=== PATIENT | male | born 1955 | race African-American/Black ===

== ENCOUNTER 2020-05-29 08:17 | Emergency (ER) | payer MEDICARE, SELFPAY ==
[2020-05-29 08:20] VITALS: BP 165/73; PULSE 92; RESP 20; TEMP 36.7; O2SAT 99
--- NOTE | 2020-05-29 08:34 | ED.DENTAL ---
HPI - Dental/Oral General Chief complaint: Dental/Oral Stated complaint: abcess in mouth Time Seen by Provider: 05/29/20 08:18 Source: RN notes reviewed History of Present Illness HPI Narrative: Patient presents to emergency department from home for dental pain. Patient states 2 days ago he began to have pain in his right jaw. He states that the pain is aching in nature and worse with chewing and biting down. He states he has tenderness in the right lower jaw and notes no swelling. He states that he has been taking Tylenol for the pain with minimal relief. He states that he does have a history of carious teeth in this region and does not currently have a dentist. Denies any fevers or chills ear pain rhinorrhea sore throat difficulty swallowing or any other symptoms. Related Data Home Medications Medication Instructions Recorded Confirmed lisinopril-hydrochlorothiazide tablet 05/29/20 Allergies Allergy/AdvReac Type Severity Reaction Status Date / Time No Known Allergies Allergy Verified 05/29/20 08:24 Review of Systems Review of Systems: Narrative: Gen.: Denies fevers or chills Eyes: Denies eye pain or visual change ENT: See HPI Respiratory: Denies shortness of breath or cough CV: Denies chest pain GI: Denies abdominal pain nausea, emesis Musculoskeletal: Denies neck pain Neuro: Denies headache Skin: Denies rash Except as documented, all other systems reviewed and negative [facility] Past Medical History Medical History (Updated 05/29/20 @ 08:36 by Shar Ng DO) CVA (cerebral vascular accident) Social History Social History Smoking status: Light tobacco smoker Alcohol intake: current Exam Narrative: Exam Narrative: APPEARANCE: No acute distress, nontoxic, resting in bed HEENT: Normocephalic, atraumatic, TMs clear bilaterally, nares patent, oral mucosa moist, airway patent, tooth #32 is carious and turn palpation and tooth 30 is carious and tender mild erythema of the gum with no fluctuance, airway patent, tonsils normal appearance with no exudate uvula midline no trismus no sublingual or or cysts submandibular tenderness mild tenderness over the right lower jaw in the region of carious teeth with no swelling or overlying erythema Neck: Supple, nontender palpation RESPIRATORY: No respiratory distress MUSCULOSKELETAl: Moves all extremities. NEURO: Awake and alert. Following commands, speech normal, no focal deficits SKIN:: Warm, dry. Normal Color PSYCHIATRIC: Normal affect/mood Course Course Emergency Course: Discussed with patient results of workup and diagnosis. Discussed need for follow-up with primary care, proper use of medication, and reasons to return to the emergency department. Patient understands and agrees to current treatment plan Vital Signs Vital signs: Vital Signs Temperature 98.0 F 05/29/20 08:20 Pulse Rate 92 05/29/20 08:20 Respiratory Rate 20 05/29/20 08:20 Blood Pressure 165/73 H 05/29/20 08:20 Pulse Oximetry 99 05/29/20 08:20 Temperature 98.0 F 05/29/20 08:20 Pulse Rate 92 05/29/20 08:20 Respiratory Rate 20 05/29/20 08:20 Blood Pressure 165/73 H 05/29/20 08:20 Pulse Oximetry 99 05/29/20 08:20 Discharge Plan Discharge Clinical Impression: Dental abscess Patient Disposition: Home, Self-Care Condition: Stable Instructions: Antibiotic Form, Dental Abscess (ED) Additional Instructions: Return for increasing pain fever or any other symptoms of concern Prescriptions: New penicillin V potassium 500 mg tablet 500 mg PO TID Qty: 40 RF: 0 ibuprofen [IBU] 600 mg tablet 600 mg PO Q6H PRN (Reason: pain) Qty: 12 RF: 0 No Action lisinopril-hydrochlorothiazide 20-12.5 mg tablet RF: 0 atorvastatin 20 mg tablet 20 mg PO DAILY Qty: 90 RF: 0 Follow-up/Referrals: [facility] [Outside] - [facility] [Outside]
[2020-05-29] MEDS: IBUPROFEN 600 MG TABLET PO (08:52)
[2020-05-29] MEDS: PENICILLIN V POTASSIUM 250 MG TABLET 500 MG PO (08:52)
== END 2020-05-29 08:56 | disposition home or self-care (01) ==
PROVIDERS: Emergency Provider Emergency Medicine
DX: K04.7 Periapical abscess without sinus (principal); Z86.73 Personal history of transient ischemic attack (TIA), and cerebral infarction without residual deficits; F17.200 Nicotine dependence, unspecified, uncomplicated
CPT/HCPCS: 99283; A9270

== ENCOUNTER 2020-06-09 09:25 | Outpatient (CLI) | payer MEDICARE, SELFPAY ==
[2020-06-09 10:40] LABS: Basophils Percent Auto 0.5 % (0.2-1.2); Eosinophils Absolute Auto 0.3 K/mm3 (0-0.3); Hematocrit 43.8 % (42.0-52.0); Hemoglobin 13.8 g/dL (14.0-18.0); Immature Granulocyte Absolute 0.02 K/mm3 (0.00-0.031); Immature Granulocyte Percent A 0.4 % (0-0.5); Lymphocytes Absolute Auto 1.81 K/mm3 (0.9-3.2); Lymphocytes Percent Auto 32.9 % (18.3-44.2); Mean Corpuscular HGB Conc 31.5 g/dl (32-36); Mean Corpuscular Hemoglobin 27.8 pg (26-34); Mean Corpuscular Volume 88.1 fl (80-100); Mean Platelet Volume 10.2 fl (7.4-10.4); Monocytes Absolute Auto 0.5 K/mm3 (0.1-0.6); Monocytes Percent Auto 8.2 % (2.6-8.5); Neutrophils Absolute Auto 2.9 K/mm3 (1.3-6.7); Platelet Count Result 229 k/mm3 (150-375); Red Blood Count 4.97 M/mm3 (4.6-6.20); Red Cell Distribution Width 12.8 % (11.5-14.5); White Blood Count 5.5 K/mm3 (4.5-10.0)
[2020-06-09 10:52] LABS: Alanine Aminotransferase 44 U/L (4-50); Albumin Level 4.6 g/dL (3.5-5.1); Alkaline Phosphatase 83 U/L (38-126); Anion Gap 6 mmol/L (8-16); Aspartate Amino Transferase 32 U/L (17-59); Bilirubin,Total 0.4 mg/dL (0.2-1.3); Blood Urea Nitrogen 26 mg/dL (9-20); Calcium 9.6 mg/dL (8.4-10.2); Carbon Dioxide 31 mmol/L (22-30); Chloride 104 mmol/L (98-107); Cholesterol 145 mg/dL (0-200); Estimated Glomerular Filt Rate 53; Glucose 108 mg/dL (75-110); HDL Direct 52 mg/dL; Potassium 4.4 mmol/L (3.4-5.0); Sodium 141 mmol/L (137-145); Triglycerides 139 mg/dL (<150)
[2020-06-09 11:13] LABS: LDL Cholesterol Direct 63 mg/dL
[2020-06-09 11:21] LABS: Prostate Specific Antigen 2.1 ng/mL (< OR = 4.0)
== END 2020-06-09 09:26 | disposition home or self-care (01) ==
PROVIDERS: PCP Family Medicine; Visit Provider Family Medicine
DX: E78.5 Hyperlipidemia, unspecified (principal); Z12.5 Encounter for screening for malignant neoplasm of prostate; Z00.00 Encounter for general adult medical examination without abnormal findings; I10 Essential (primary) hypertension
CPT/HCPCS: 36415; 80053; 80061; 84153; 84443; 85025; G0103

== ENCOUNTER 2020-12-10 07:09 | Emergency (ER) | payer MEDICARE, SELFPAY ==
--- NOTE | ~2020-12-10 | XR_ITS ---
EXAMINATION: XR foot RT min 3V DATE: 12/10/2020 07:42 INDICATION: Right foot and swelling. TECHNIQUE: 4 views of right foot were obtained. COMPARISON: None. FINDINGS: Bone alignment is normal. No fracture. There is mild osteoarthritis of first metatarsophala ngeal joint and talonavicular joint. There is an enthesophyte at plantar aspect of calcaneal tuberosi ty. IMPRESSION: 1. Mild polyarticular osteoarthritis. Reviewed, dictated and finalized at location A.
[2020-12-10 07:16] VITALS: BP 153/89; PULSE 69; RESP 18; TEMP 37.1; O2SAT 100
[2020-12-10] MEDS: INDOMETHACIN 25 MG CAPSULE 50 MG PO (07:41)
[2020-12-10 07:42] LABS: Basophils Percent Auto 0.5 % (0.2-1.2); Eosinophils Absolute Auto 0.3 K/mm3 (0-0.3); Eosinophils Percent Auto 5.1 % (0-4.4); Hematocrit 41.9 % (42.0-52.0); Hemoglobin 13.2 g/dL (14.0-18.0); Immature Granulocyte Absolute 0.01 K/mm3 (0.00-0.031); Immature Granulocyte Percent A 0.2 % (0-0.5); Lymphocytes Absolute Auto 1.35 K/mm3 (0.9-3.2); Lymphocytes Percent Auto 23.7 % (18.3-44.2); Mean Corpuscular HGB Conc 31.5 g/dl (32-36); Mean Corpuscular Hemoglobin 28.3 pg (26-34); Mean Corpuscular Volume 89.7 fl (80-100); Mean Platelet Volume 9.9 fl (7.4-10.4); Monocytes Absolute Auto 0.7 K/mm3 (0.1-0.6); Neutrophils Absolute Auto 3.3 K/mm3 (1.3-6.7); Neutrophils Percent Auto 58.5 % (45.5-73.1); Platelet Count Result 196 k/mm3 (150-375); Red Blood Count 4.67 M/mm3 (4.6-6.20); Red Cell Distribution Width 13.3 % (11.5-14.5); White Blood Count 5.7 K/mm3 (4.5-10.0)
--- NOTE | 2020-12-10 07:51 | ED.LOWEXIN ---
HPI - Extremity Injury (Lower) General Chief Complaint: Extremity Injury, Lower Stated Complaint: right foot pain Time Seen by Provider: 12/10/20 07:19 Source: patient, RN notes reviewed and old records reviewed Mode of arrival: ambulatory Limitations: no limitations History of Present Illness HPI Narrative: This is a 65 year old male who presents for evaluation of right foot pain. He developed pain to his right great toe yesterday. He now reports he also has pain in his second toe. He thinks there is mild swelling at his great toe. He denies any trauma or injury. He denied history of gout to nurse but now he thinks he may have had gout in the past. He denies fever or chills. He took Tylenol for his pain. Related Data Allergies Allergy/AdvReac Type Severity Reaction Status Date / Time No Known Allergies Allergy Verified 12/10/20 07:24 Review of Systems Review of Systems: All systems reviewed & are unremarkable except as noted in HPI and below PMFSH Past Medical History Medical History CKD (chronic kidney disease) stage 3, GFR 30-59 ml/min CVA (cerebral vascular accident) Dyslipidemia Erectile dysfunction Essential hypertension Headache, migraine History of CVA with residual deficit Surgical History Surgical History History of shoulder surgery (~2015) left shoulder History of tooth extraction Family History Family History Sibling Seizure disorder Father , age 80 Cerebrovascular accident Grandparent Pulmonary disorder Grandparent History of blood clot in brain Grandparent , age 91 Cerebrovascular accident Social History Social History Smoking packs per day: 0.5 Smoking cigarettes per day: 10.0 Years smoked: 40 Smoking pack-years: 20.00 Smoking status: Never smoker Tobacco type: cigarettes Second hand tobacco smoke exposure: No Smoking end date: 03/14/20 Alcohol intake: former Substance use: never Substance use type: does not use Gender identity (if verbalized by the patient): Male Exam Const: General: no acute distress and alert Orientation/consciousness: patient oriented x3 Chest: Chest palpation & inspection: normal inspection of the chest Resp: Effort & Inspection: normal respiratory effort and no retractions Auscultation: clear to auscultation bilaterally Cardio: Rate: regular rate Rhythm: regular rhythm Heart sounds: no murmurs Skin: General skin exam: normal color Rashes: no rashes Neuro: General: patient oriented x3, moves all extremities and CN's II-XI intact bilaterally Extrem: Other: right great toe TTP, no significant swelling; 2+ PT and DP pulse bilateral feet Psych: Mental Status: mental status grossly normal Affect: normal affect Course Reevaluation(s) Reevaluation #1: I discussed with patient that xray shows osteoarthritis. I believe his pain is due to osteoarthritis or gout arthritis. His pain has improved. I Discussed he will be discharged with indomethacin. Date: 12/10/20 Time: 09:06 Vital Signs Vital signs: Vital Signs Temperature 98.8 F 12/10/20 07:16 Pulse Rate 69 12/10/20 07:16 Respiratory Rate 18 12/10/20 07:16 Blood Pressure 153/89 H 12/10/20 07:16 Pulse Oximetry 100 12/10/20 07:16 Temperature 98.8 F 12/10/20 07:16 Pulse Rate 57 L 12/10/20 09:25 Respiratory Rate 17 12/10/20 09:25 Blood Pressure 162/69 H 12/10/20 09:25 Pulse Oximetry 100 12/10/20 09:25 MDM - Extremity Injury (Lower) Medical Records Attestation: I reviewed the patient's medical records. Lab Data Attestation: I reviewed the patient's lab results. Result diagrams: 12/10/20 07:35 12/10/20 07:35 Labs: Lab Results 12/10/20 12/10/20
[2020-12-10 07:55] LABS: Anion Gap 6 mmol/L (8-16); Blood Urea Nitrogen 17 mg/dL (9-20); Calcium 8.6 mg/dL (8.4-10.2); Carbon Dioxide 25 mmol/L (22-30); Chloride 110 mmol/L (98-107); Estimated CRCL calculation 41 ml/min; Estimated Glomerular Filt Rate 57; Glucose 107 mg/dL (75-110); Potassium 4.3 mmol/L (3.4-5.0); Sodium 141 mmol/L (137-145); Uric Acid 7.9 mg/dL (3.5-8.5)
[2020-12-10 09:25] VITALS: BP 162/69; PULSE 57; RESP 17; O2SAT 100
== END 2020-12-10 09:26 | disposition home or self-care (01) ==
PROVIDERS: Emergency Provider General Practice; PCP Family Medicine
DX: M79.674 Pain in right toe(s) (principal); I12.9 Hypertensive chronic kidney disease with stage 1 through stage 4 chronic kidney disease, or unspecified chronic kidney disease; N18.30 Chronic kidney disease, stage 3 unspecified; E78.5 Hyperlipidemia, unspecified; I69.90 Unspecified sequelae of unspecified cerebrovascular disease; Z87.891 Personal history of nicotine dependence; M19.071 Primary osteoarthritis, right ankle and foot
CPT/HCPCS: 36415; 73630; 80048; 84550; 85025; 99283; A9270

== ENCOUNTER 2021-01-28 11:17 | Outpatient (CLI) | payer MEDICARE, SELFPAY ==
[2021-01-28 11:43] LABS: Alanine Aminotransferase 39 U/L (4-50); Albumin Level 4.4 g/dL (3.5-5.1); Alkaline Phosphatase 76 U/L (38-126); Anion Gap 8 mmol/L (8-16); Aspartate Amino Transferase 44 U/L (17-59); Bilirubin,Total 0.6 mg/dL (0.2-1.3); Blood Urea Nitrogen 36 mg/dL (9-20); Calcium 9.7 mg/dL (8.4-10.2); Carbon Dioxide 26 mmol/L (22-30); Chloride 107 mmol/L (98-107); Estimated Glomerular Filt Rate 49; Glucose 105 mg/dL (75-110); Potassium 4.9 mmol/L (3.4-5.0); Sodium 141 mmol/L (137-145); Uric Acid 9.9 mg/dL (3.5-8.5)
== END 2021-01-28 11:18 | disposition home or self-care (01) ==
LOC: ANHLAB 11:21
PROVIDERS: PCP Family Medicine; Visit Provider Podiatrist Foot & Ankle Surgery
DX: M10.9 Gout, unspecified (principal)
CPT/HCPCS: 36415; 80053; 84550

== ENCOUNTER 2021-05-05 14:59 | Outpatient (CLI) | payer MEDICARE, SELFPAY ==
[2021-05-05 16:10] LABS: Alanine Aminotransferase 27 U/L (4-50); Albumin Level 4.7 g/dL (3.5-5.1); Alkaline Phosphatase 91 U/L (38-126); Anion Gap 8 mmol/L (8-16); Aspartate Amino Transferase 32 U/L (17-59); Bilirubin,Total 0.7 mg/dL (0.2-1.3); Blood Urea Nitrogen 20 mg/dL (9-20); Calcium 9.1 mg/dL (8.4-10.2); Carbon Dioxide 27 mmol/L (22-30); Chloride 108 mmol/L (98-107); Estimated Glomerular Filt Rate 57; Glucose 95 mg/dL (65-110); Potassium 4.5 mmol/L (3.4-5.0); Sodium 143 mmol/L (137-145); Uric Acid 8.6 mg/dL (3.5-8.5)
== END 2021-05-05 15:00 | disposition home or self-care (01) ==
PROVIDERS: PCP Family Medicine; Visit Provider Podiatrist Foot & Ankle Surgery
DX: M10.079 Idiopathic gout, unspecified ankle and foot (principal)
CPT/HCPCS: 36415; 80053; 84550

== ENCOUNTER 2021-05-18 02:22 | Day surgery (SDC) | payer MEDICARE, SELFPAY ==
[2021-05-04 14:52] VITALS: BMI 27.4
[2021-05-18 08:29] VITALS: BP 169/81; PULSE 69; RESP 20; TEMP 36.2; O2SAT 100
[2021-05-18] MEDS: LACTATED RINGERS 1,000 ML 150 ML IV CONT (08:40)
--- NOTE | 2021-05-18 09:09 | WPDANESEPPF ---
Anes - Initial Pre Proc Eval Procedure: Operation Date: 05/18/21 09:30 Proposed Procedures p Screening Colonoscopy - Marcelino Fairbanks MD Date/Time: 05/18/21 09:09 Surgeon: Marcelino Fairbanks MD Pre Op Diagnosis: neoplasm screening Patient Data Age: 66 Gender: M Height: 1.73 m Weight: 80 kg Last Vital Signs Temp 97.1 F L 05/18/21 08:29 Pulse 69 05/18/21 08:29 Resp 20 05/18/21 08:29 BP 169/81 H 05/18/21 08:29 Pulse Ox 100 05/18/21 08:29 Allergies Allergy/AdvReac Type Severity Reaction Status Date / Time No Known Allergies Allergy Verified 05/18/21 08:27 Home Medications Medication Instructions Recorded Confirmed Type aspirin 81 mg tablet,delayed 81 mg PO DAILY 12/24/20 05/04/21 History release tramadol 50 mg tablet 50 mg PO Q8H PRN #30 tablet 12/24/20 05/04/21 Rx atorvastatin 20 mg tablet 20 mg PO QHS #90 tablet 03/11/21 05/04/21 Rx lisinopril 20 1 tablet PO DAILY #90 tablet 03/11/21 05/04/21 Rx mg-hydrochlorothiazide 12.5 mg tablet febuxostat 40 mg tablet 40 mg PO DAILY tablet 04/28/21 05/04/21 History sildenafil (pulm.hypertension) See Rx Instructions PO DAILY PRN 05/04/21 05/04/21 History Patient hx anesthesia problems: none Family hx anesthesia problems: none Results Review: All pre-operative results and documents have been reviewed as part of the pre-operative evaluation. [facility] Past Medical History Medical History Arthritis Chronic right shoulder pain CKD (chronic kidney disease) stage 3, GFR 30-59 ml/min CVA (cerebral vascular accident) Dyslipidemia Erectile dysfunction Essential hypertension Gout Headache, migraine History of CVA with residual deficit Memory loss Right foot pain Right shoulder pain Rotator cuff tendonitis Surgical History Surgical History History of shoulder surgery (~2015) left shoulder History of tooth extraction Family History Family History Sibling Seizure disorder Father , age 80 Cerebrovascular accident Grandparent Pulmonary disorder Grandparent History of blood clot in brain Grandparent , age 91 Cerebrovascular accident Social History Social History Smoking packs per day: 0.5 Smoking cigarettes per day: 10.0 Years smoked: 40 Smoking pack-years: 20.00 Smoking status: Current some day smoker Tobacco type: cigarettes Second hand tobacco smoke exposure: No Smoking end date: 03/14/20 Alcohol intake: current Drinks per week: 2 Alcohol use details: Socially Substance use: never Substance use type: does not use Living arrangements: with family Gender identity (if verbalized by the patient): Male Sexual Orientation (if Verbalized by the Patient): Straight or Heterosexual Spiritual care concerns: No Anes - Eval Final PreProcedure Day of Procedure 05/18/21 09:09 Patient weight: overweight Heart: regular rate and rhythm Lungs: clear to auscultation Airway: Mallampati scale class II Neurological: alert and oriented Last oral intake: >/= 8 hours ASA classification: III Emergent: no Anesthetic plan: proceed Anesthesia type and monitoring: general GIVS and standard monitoring Results Review: All pre-operative results and documents have been reviewed as part of the pre-operative evaluation. Informed Consent: The patient's anesthetic plan and its attendant risks and benefits were discussed with the patient/family/POA. Questions were solicited and answers provided to the satisfaction of the patient/family/POA.
--- NOTE | 2021-05-18 09:31 | PM.HPGS ---
History of Present Illness History of Present Illness Consent: Risks, benefits, and alternatives have been discussed and questions answered. Patient agrees to proceed with procedure. Chief complaint: neoplasm screening Narrative: Buzz Disla is a 66 year old male here for screening colonoscopy, last one about 25 years ago. Review of Systems Constitutional: Constitutional: Denies headache(s) and Denies weakness Eyes: Eyes: Denies blurry vision ENT: Reports Normal hearing present, Denies headache(s) and Denies neck pain Cardiovascular: Cardiovascular: Denies chest pain and Denies dyspnea Respiratory: Respiratory: Denies dyspnea Gastrointestinal: Gastrointestinal: Reports no additional gastrointestinal complaints Genitourinary: Genitourinary: Denies dysuria Musculoskeletal: Musculoskeletal: Denies neck pain Integumentary/Breasts: Skin/Breast: Denies dry skin Neurologic: Reports Normal hearing present, Denies headache(s) and Denies weakness Psychiatric: Psychiatric: Denies anxiety Endocrine: Endocrine: Denies change in body appearance Hematologic/Lymphatic: Hematologic/Lymphatic: Denies easy bleeding Allergic/Immunologic: Allergic/Immunologic: Denies urticaria PMFSH Past Medical History Medical History (Updated 05/18/21 @ 09:31 by Marcelino Fairbanks MD) Arthritis Chronic right shoulder pain CKD (chronic kidney disease) stage 3, GFR 30-59 ml/min Colon cancer screening CVA (cerebral vascular accident) Dyslipidemia Erectile dysfunction Essential hypertension Gout Headache, migraine History of CVA with residual deficit Memory loss Right foot pain Right shoulder pain Rotator cuff tendonitis Surgical History Surgical History History of shoulder surgery (~2016) left shoulder History of tooth extraction Family History Family History Sibling Seizure disorder Father , age 80 Cerebrovascular accident Grandparent Pulmonary disorder Grandparent History of blood clot in brain Grandparent , age 91 Cerebrovascular accident Social History Social History Smoking packs per day: 0.5 Smoking cigarettes per day: 10.0 Years smoked: 40 Smoking pack-years: 20.00 Smoking status: Current some day smoker Tobacco type: cigarettes Second hand tobacco smoke exposure: No Smoking end date: 03/14/20 Alcohol intake: current Drinks per week: 2 Alcohol use details: Socially Substance use: never Substance use type: does not use Living arrangements: with family Gender identity (if verbalized by the patient): Male Sexual Orientation (if Verbalized by the Patient): Straight or Heterosexual Spiritual care concerns: No Meds Home Medications and Allergies Home Medications Medication Instructions Recorded Confirmed Type aspirin 81 mg tablet,delayed 81 mg PO DAILY 12/24/20 05/04/21 History release tramadol 50 mg tablet 50 mg PO Q8H PRN #30 tablet 12/24/20 05/04/21 Rx atorvastatin 20 mg tablet 20 mg PO QHS #90 tablet 03/11/21 05/04/21 Rx lisinopril 20 1 tablet PO DAILY #90 tablet 03/11/21 05/04/21 Rx mg-hydrochlorothiazide 12.5 mg tablet febuxostat 40 mg tablet 40 mg PO DAILY tablet 04/28/21 05/04/21 History sildenafil (pulm.hypertension) See Rx Instructions PO DAILY PRN 05/04/21 05/04/21 History Allergies Allergy/AdvReac Type Severity Reaction Status Date / Time No Known Allergies Allergy Verified 05/18/21 08:27 Vital Signs Vital Signs - 24 hr 05/18/21 08:29 Temperature 97.1 F L Pulse Rate 69 Respiratory Rate 20 Blood Pressure 169/81 H Pulse Oximetry 100 Exam Const: General: comfortable and no acute distress HENMT: General nose exam: Normal nares present Eyes: General: appearance normal, both eyes and all related structures Neck: Nec
[2021-05-18 09:56] VITALS: BP 132/54; PULSE 81; RESP 26; O2SAT 100
[2021-05-18 10:06] VITALS: BP 128/61; PULSE 68; RESP 19; O2SAT 100
[2021-05-18 10:16] VITALS: BP 129/61; PULSE 64; RESP 26; O2SAT 100
== END 2021-05-18 10:43 | disposition home or self-care (01) ==
PROVIDERS: PCP Family Medicine; Visit Provider Internal Medicine Gastroenterology
PROC: 0DJD8ZZ Inspection of Lower Intestinal Tract, Via Natural or Artificial Opening Endoscopic (ICD-10-PCS; CPT 45378; principal; 2021-05-18 09:30)
DX: Z12.11 Encounter for screening for malignant neoplasm of colon (principal); D12.2 Benign neoplasm of ascending colon; D12.4 Benign neoplasm of descending colon; K64.8 Other hemorrhoids; I12.9 Hypertensive chronic kidney disease with stage 1 through stage 4 chronic kidney disease, or unspecified chronic kidney disease; N18.30 Chronic kidney disease, stage 3 unspecified; E78.5 Hyperlipidemia, unspecified; M10.9 Gout, unspecified; M19.90 Unspecified osteoarthritis, unspecified site; Z86.73 Personal history of transient ischemic attack (TIA), and cerebral infarction without residual deficits; Z79.82 Long term (current) use of aspirin; Z87.891 Personal history of nicotine dependence
CPT/HCPCS: 45385; 88305; J7120

== ENCOUNTER 2021-06-15 08:20 | Outpatient (CLI) | payer MEDICARE, SELFPAY | END 2021-06-15 08:21 | disposition home or self-care (01) | LOC: ANHSURGERY 08:24 | PROVIDERS: PCP Family Medicine; Visit Provider Surgery | DX: K40.90 Unilateral inguinal hernia, without obstruction or gangrene, not specified as recurrent (principal); Z01.818 Encounter for other preprocedural examination | CPT/HCPCS: 36415; 86850; 86900; 86901 ==

== ENCOUNTER 2021-06-16 00:31 | Day surgery (SDC) | payer MEDICARE, SELFPAY ==
[2021-06-14 08:51] VITALS: BMI 31.8
--- NOTE | 2021-06-14 09:00 | PC.NURSE ---
Report to the Outpatient Waiting Room, entrance under the green pavilion located off [facility], at time _0600 on date ___06/16/21____. OR Time: . - You and your visitor will be asked a series of questions to screen for COVID 19 for your protection. - A mask is required within the hospital. - Only one visitor is allowed at this time. Patient visitors will be guided where to wait when not with patient. Preoperative COVID Testing Requirements: No COVID Test needed if: (proof is required; if not received patient will have Rapid Test prior to entry) - Patient has received COVID Vaccine at least 14 days prior to procedure date or - Patient has positive COVID test result within last 90 days of surgery date. COVID Test needed if above criteria is not met If not COVID vaccinated a COVID test must be conducted within 72 hours of surgery and patient is asked to isolate self from time of testing until procedure. You will go to the [facility] for your COVID testing. The [facility] Testing site is located at the corner of [address] [facility]. You will only be called if COVID results are positive and your surgeon may reschedule your elective surgery date. Patients may have clear liquids (water, carbonated beverages, clear teas, apple juice) until 3 hours prior to surgery with a maximum of 20 ounces. - No food from midnight until time of surgery - Infants may have breast milk until 4 hours before surgery, formula 6 hours prior to surgery. - Children will be allowed to drink immediately following surgery. If applicable, please bring a bottle or sippy cup to assist with drinking. Juice, water, soda, and popsicles are readily available. For infants on formula, please bring formula the day of surgery. Pacifiers are allowed. Take the following medications with a SIP of water the morning of surgery: NONE Medications to discontinue per physician NONE Date to take last dose Please no make-up, nail tamazight, hairspray, perfume, deodorant, or body powder the day of surgery. No jewelry (including any body piercings) or valuables the day of surgery, leave them at home. Please take a shower or bath the night before, or the morning of, surgery with an antibacterial soap. Wear comfortable, loose fitting clothing. Children are encouraged to wear pajamas. - Jewelry must be removed prior to entering the operating room. Rings and piercings that are not removed may be cut off. - The hospital will not accept responsibility for valuables. - Please leave all valuables, including medications, at home the day of surgery. If you are going home after surgery, a licensed lunch truck driver must drive you home. - NO public transportation without another adult. - We recommend that an adult stay with you for 24 hours following discharge. - We also recommend that you do not drive, make important decision, drink alcoholic beverages, or take any drugs that were not prescribed by your health care provider for at least 24 hours after your discharge time. For Pediatric surgeries, we recommend two adults accompany the child home (only one inside the building at this time). Follow any additional instructions given to you from your surgeon. Telephone instructions given to __PATIENT and asked if any additional questions and then verbalized understanding. Patient advised to call surgeon office or pre surgery nurse liaison [phone] if any additional questions.
[2021-06-16] VITALS (17 sets, daily range): BP systolic 117–150; BP diastolic 58–84; PULSE 60–77; RESP 16–22; TEMP 36.4–37.2; O2SAT 96–100
--- NOTE | 2021-06-16 07:04 | WPDANESEPPF ---
Anes - Initial Pre Proc Eval Procedure: Operation Date: 06/16/21 07:30 Proposed Procedures p Laparoscopic Left Inguinal Hernia Repair With Mesh, DaVinci Assisted - Charles Jorgensen DO Date/Time: 06/16/21 07:04 Surgeon: Charles Jorgensen DO Pre Op Diagnosis: Lt Ing Hernia Patient Data Age: 66 Gender: M Height: 1.6 m Weight: 81.65 kg Allergies Allergy/AdvReac Type Severity Reaction Status Date / Time No Known Allergies Allergy Verified 06/14/21 08:34 Home Medications Medication Instructions Recorded Confirmed Type aspirin 81 mg tablet,delayed 81 mg PO DAILY 12/24/20 06/14/21 History release tramadol 50 mg tablet 50 mg PO Q8H PRN #30 tablet 12/24/20 06/14/21 Rx atorvastatin 20 mg tablet 20 mg PO QHS #90 tablet 03/11/21 06/14/21 Rx lisinopril 20 1 tablet PO DAILY #90 tablet 03/11/21 06/14/21 Rx mg-hydrochlorothiazide 12.5 mg tablet febuxostat 40 mg tablet 40 mg PO DAILY tablet 04/28/21 06/14/21 History sildenafil (pulm.hypertension) See Rx Instructions PO DAILY PRN 05/04/21 06/14/21 History Patient hx anesthesia problems: none Family hx anesthesia problems: none Results Review: All pre-operative results and documents have been reviewed as part of the pre-operative evaluation. [facility] Past Medical History Medical History Arthritis Chronic right shoulder pain CKD (chronic kidney disease) stage 3, GFR 30-59 ml/min Colon cancer screening CVA (cerebral vascular accident) Dyslipidemia Erectile dysfunction Essential hypertension Gout Headache, migraine History of CVA with residual deficit Memory loss Right foot pain Right shoulder pain Rotator cuff tendonitis Surgical History Surgical History History of shoulder surgery (~2016) left shoulder History of tooth extraction Family History Family History Sibling Seizure disorder Father , age 80 Cerebrovascular accident Grandparent Pulmonary disorder Grandparent History of blood clot in brain Grandparent , age 91 Cerebrovascular accident Social History Social History Smoking packs per day: 0.5 Smoking cigarettes per day: 10.0 Years smoked: 40 Smoking pack-years: 20.00 Smoking status: Current every day smoker Tobacco type: cigarettes Second hand tobacco smoke exposure: No Smoking end date: 03/14/20 Alcohol intake: current Drinks per week: 2 Alcohol use details: Socially Substance use: never Substance use type: does not use Living arrangements: with family Gender identity (if verbalized by the patient): Male Sexual Orientation (if Verbalized by the Patient): Straight or Heterosexual Spiritual care concerns: No Anes - Eval Final PreProcedure Day of Procedure 06/16/21 07:04 Patient weight: obese Heart: regular rate and rhythm Lungs: clear to auscultation Airway: Mallampati scale class III Neurological: hemiparesis and other (alert) Last oral intake: >/= 8 hours ASA classification: III Emergent: no Anesthetic plan: proceed Anesthesia type and monitoring: general ETT and standard monitoring Results Review: All pre-operative results and documents have been reviewed as part of the pre-operative evaluation. Informed Consent: The patient's anesthetic plan and its attendant risks and benefits were discussed with the patient/family/POA. Questions were solicited and answers provided to the satisfaction of the patient/family/POA.
[2021-06-16] MEDS: LACTATED RINGERS 1,000 ML 30 ML IV CONT ×3 (07:06→12:45)
[2021-06-16] MEDS: ACETAMINOPHEN 500 MG TABLET 1000 MG PO (07:07)
[2021-06-16] MEDS: KETOROLAC 15 MG/ML VIAL (*BKC) IV PUSH (07:07)
--- NOTE | 2021-06-16 07:13 | WPDHPUPDATE1 ---
History and Physical Update Update Date/Time: 06/16/21 07:13 History and Physical has been reviewed, including an updated exam of the patient. There are NO changes in the patient's condition. Risks, benefits, and alternatives have been discussed and questions answered. Patient agrees to proceed with procedure.
[2021-06-16] MEDS: ceFAZolin 2 GM/D5W 50 ML 2 GM/50 ML BAG IVPB (07:25)
[2021-06-16] MEDS: BUPIVACAINE HCL 0.5% PF 30 ML VIAL INFILTRATE (07:45)
--- NOTE | 2021-06-16 08:56 | SUR.OPER ---
EBL=5
--- NOTE | 2021-06-16 09:01 | W.PM.PROC2 ---
Procedure Note - Detailed Date of Procedure 06/16/21 Pre-op Diagnosis Left inguinal hernia Post-op Diagnosis same (Small indirect left inguinal hernia) Procedure Performed Laparoscopic left inguinal hernia repair with mesh, da Javi assisted Surgeon Charles Jorgensen DO Anesthesia general and local (0.5% bupivacaine with epinephrine) Indications This is a 66-year-old man who presented with left groin pain for the past 2 months. He states that he was having pain in the groin with heavy activity. He denies being able to feel or notice a bulge. On exam he was found to have a small reducible left inguinal hernia. No right inguinal hernia was palpable. Discussions were made with the patient about treatment options and decision was made to proceed with robotic assisted laparoscopic left inguinal hernia repair with mesh. Findings Laparoscopic left inguinal hernia repair was performed. A robotic transabdominal preperitoneal approach was utilized. The patient was found to have a very small indirect left inguinal hernia and there was a small cord lipoma going along the inguinal canal. A preperitoneal pocket was created and the cord lipoma was reduced. A large left Bard 3DMax mid mesh was placed within the preperitoneal pocket overlying the entire left myopectineal orifice. No specimens were obtained for pathology. There was no evidence of a right inguinal hernia on laparoscopic inspection. Description of Procedure Procedure as well as risks, benefits, and alternatives were discussed with the patient. Written consent was obtained and placed in chart prior to procedure. Patient was brought back to surgical suite. He was placed supine on operating table. Time-out was done to confirm patient and procedure. He was then intubated by Anesthesia Department. His abdomen was prepped and draped in sterile fashion using chlorhexidine prep. 0.5% bupivacaine with epinephrine was infiltrated at each location for incision. An 8 mm incision was made in the left lateral abdomen, and a 5 mm Optiview trocar was advanced through the abdominal layers under direct visualization. Once inside the abdominal cavity, carbon dioxide insufflation was used to create a pneumoperitoneum. A camera was inserted and the abdominal cavity was inspected. The patient was placed in slight Trendelenburg position. An 8 millimeter incision was made on the right lateral abdomen and an 8 millimeter trocar was inserted under direct visualization. Another 8 millimeter incision was made just superior to the umbilicus and an 8 millimeter trocar was inserted under direct visualization. The 5 mm port was then removed and this was replaced with another 8 mm robotic port. The robotic arms were brought up to the patient's bedside and secured to the ports. The camera and instruments were inserted. I then moved over to the robotic console and took control of the camera and instruments. After careful inspection of the abdominal cavity, I began scoring the peritoneum along the left lower quadrant using scissors with electrocautery. The preperitoneal plane was entered and this was carefully dissected caudally along the inferior epigastric vessels. Careful dissection with scissors with electrocautery and blunt dissection was used to continue this dissection. I dissected far enough laterally to allow for mesh placement, and also dissected medially to identify the pubic arch and Reji's ligament. The hernia sac was identified and carefully dissected posteriorly. The cord contents were also identified and the peritoneum was carefully dissected far enough posteriorly to allow for mesh placement. Once an adequate pocket was created, I then placed the mesh within the preperitoneal pocket and carefully unfolded it. The mesh was centered on the hernia defect with adequate overlap circumferentially. The inferior edge of the mesh was inspected to ensure that it was far enough away from the peritoneal edge. The mesh appe
[2021-06-16] MEDS: oxyCODONE HCL (*CRX) 5 MG TAB IR PO (10:37)
--- NOTE | 2021-06-16 12:55 | SUR.PHASEII ---
1230: Patient attempted to urinate and was unable to go.
--- NOTE | 2021-06-16 13:43 | SUR.PHASEII ---
RN bladder-scanned patient. It shows 106mL. Patient is not in any discomfort at this time. RN notified Dr. Jorgensen and he said to give it another hour and bladder scan again if patient hasn't urinated yet.
--- NOTE | 2021-06-16 14:54 | SUR.PHASEII ---
1445: Patient was still unable to urinate. RN bladder-scanned patient and it showed 159mL.
--- NOTE | 2021-06-16 15:27 | SUR.PHASEII ---
1456: RN spoke w/ Dr. Jorgensen via telephone. He said if patient wasn't uncomfortable then it was ok for him to go home and report to ED later if unable to urinate on own.
== END 2021-06-16 15:30 | disposition home or self-care (01) ==
PROVIDERS: PCP Family Medicine; Visit Provider Surgery
PROC: 8E0Y4CZ Robotic Assisted Procedure of Lower Extremity, Percutaneous Endoscopic Approach (ICD-10-PCS; CPT 49650; principal; 2021-06-16 07:30)
DX: K40.90 Unilateral inguinal hernia, without obstruction or gangrene, not specified as recurrent (principal); I12.9 Hypertensive chronic kidney disease with stage 1 through stage 4 chronic kidney disease, or unspecified chronic kidney disease; N18.30 Chronic kidney disease, stage 3 unspecified; E78.5 Hyperlipidemia, unspecified; M10.9 Gout, unspecified; Z86.73 Personal history of transient ischemic attack (TIA), and cerebral infarction without residual deficits; Z79.82 Long term (current) use of aspirin; F17.210 Nicotine dependence, cigarettes, uncomplicated; E66.9 Obesity, unspecified; Z68.31 Body mass index [BMI] 31.0-31.9, adult
CPT/HCPCS: 49650; S2900; 36415; 86850; 86900; 86901; A9270; J0690; J1100; J1170; J1885; J2250; J2405; J2704; J7030; J7120

== ENCOUNTER 2021-09-13 15:27 | Outpatient (CLI) | payer MEDICARE, SELFPAY ==
[2021-09-13 16:01] LABS: Basophils Percent Auto 0.6 % (0.2-1.2); Eosinophils Absolute Auto 0.3 K/mm3 (0-0.3); Eosinophils Percent Auto 4.6 % (0-4.4); Hematocrit 46.3 % (42.0-52.0); Hemoglobin 14.7 g/dL (14.0-18.0); Immature Granulocyte Absolute 0.03 K/mm3 (0.00-0.031); Immature Granulocyte Percent A 0.4 % (0-0.5); Lymphocytes Absolute Auto 2.05 K/mm3 (0.9-3.2); Lymphocytes Percent Auto 28.9 % (18.3-44.2); Mean Corpuscular HGB Conc 31.7 g/dl (32-36); Mean Corpuscular Hemoglobin 28.3 pg (26-34); Monocytes Absolute Auto 0.5 K/mm3 (0.1-0.6); Monocytes Percent Auto 6.9 % (2.6-8.5); Neutrophils Absolute Auto 4.2 K/mm3 (1.3-6.7); Neutrophils Percent Auto 58.6 % (45.5-73.1); Platelet Count Result 228 k/mm3 (150-375); Red Cell Distribution Width 13.9 % (11.5-14.5); White Blood Count 7.1 K/mm3 (4.5-10.0)
[2021-09-13 16:18] LABS: Alanine Aminotransferase 31 U/L (4-50); Alkaline Phosphatase 98 U/L (38-126); Anion Gap 6 mmol/L (8-16); Aspartate Amino Transferase 29 U/L (17-59); Bilirubin,Total 0.5 mg/dL (0.2-1.3); Blood Urea Nitrogen 22 mg/dL (9-20); Calcium 9.3 mg/dL (8.4-10.2); Carbon Dioxide 24 mmol/L (22-30); Chloride 110 mmol/L (98-107); Cholesterol 191 mg/dL (0-200); Estimated Glomerular Filt Rate 53; Glucose 107 mg/dL (65-110); HDL Direct 60 mg/dL; Potassium 4.4 mmol/L (3.4-5.0); Sodium 140 mmol/L (137-145); Triglycerides 299 mg/dL (<150); Uric Acid 8.6 mg/dL (3.5-8.5)
[2021-09-13 16:29] LABS: LDL Cholesterol Direct 86 mg/dL
[2021-09-13 16:47] LABS: Prostate Specific Antigen 2.6 ng/mL (< OR = 4.0); Vitamin D 25 Hydroxy 16.9 ng/mL
== END 2021-09-13 15:28 | disposition home or self-care (01) ==
PROVIDERS: PCP Family Medicine; Visit Provider Family Medicine
DX: I10 Essential (primary) hypertension (principal); M10.00 Idiopathic gout, unspecified site; E55.9 Vitamin D deficiency, unspecified; Z12.5 Encounter for screening for malignant neoplasm of prostate; E53.8 Deficiency of other specified B group vitamins; R41.89 Other symptoms and signs involving cognitive functions and awareness; E78.5 Hyperlipidemia, unspecified
CPT/HCPCS: 36415; 80053; 80061; 82306; 82607; 84153; 84443; 84550; 85025; G0103

== ENCOUNTER 2022-01-22 08:47 | Emergency (ER) | payer MEDICARE, SELFPAY ==
[2022-01-22 08:50] VITALS: BP 160/95; PULSE 67; RESP 19; TEMP 36.8; O2SAT 98
--- NOTE | 2022-01-22 09:03 | ED.EXTPRO ---
HPI - Extremity Problem General Chief complaint: Extremity Problem,Nontraumatic Stated complaint: foot pain Time Seen by Provider: 01/22/22 08:56 History of Present Illness HPI Narrative: Patient is a 66-year-old male with a history of gout, hypertension, chronic kidney disease here for evaluation of atraumatic right great toe pain for the past day. Patient states the pain is severe in nature, and sensitive to touch, and is described as a sharp burning pain. He has been walking on the foot but with difficulty. He has a history of gout in his right great toe and states that this pain feels identical. He has been attempting his prescribed colchicine and Tylenol without relief of his pain. Denies fevers, chills, systemic symptoms. No history of diabetes. Related Data Home Medications Medication Instructions Recorded Confirmed aspirin 81 mg tablet,delayed 81 mg PO DAILY 12/24/20 07/15/21 release febuxostat 40 mg tablet (Uloric) 40 mg PO DAILY 04/28/21 07/15/21 Allergies Allergy/AdvReac Type Severity Reaction Status Date / Time No Known Allergies Allergy Verified 01/22/22 08:54 Review of Systems Review of Systems: Gen.: Denies fevers or chills Eyes: Denies eye pain or visual change ENT: Denies congestion Respiratory: Denies shortness of breath or cough CV: Denies chest pain or palpitations GI: Denies abdominal pain nausea, emesis or diarrhea denies burning, urgency, frequency or hematuria Musculoskeletal: Reports right toe pain. denies back pain or muscle pain Neuro: Denies numbness, tingling, weakness or focal weakness Skin: Denies rash Except as documented, all other systems reviewed and negative [facility] Past Medical History Medical History Arthritis Chronic right shoulder pain CKD (chronic kidney disease) stage 3, GFR 30-59 ml/min Cognitive impairment Colon cancer screening Dyslipidemia Erectile dysfunction Essential hypertension Gout Headache, migraine History of CVA with residual deficit Inguinal hernia without obstruction or gangrene Memory loss Right foot pain Rotator cuff tendonitis Surgical History Surgical History History of shoulder surgery (~2015) left shoulder History of tooth extraction Hx of left inguinal hernia repair Laparoscopic left inguinal repair with mesh Mayelin asst. 06-16-21 Family History Family History Sibling Seizure disorder Father , age 80 Cerebrovascular accident Grandparent Pulmonary disorder Grandparent History of blood clot in brain Grandparent , age 91 Cerebrovascular accident Social History Social History Smoking packs per day: 0.5 Smoking cigarettes per day: 10.0 Years smoked: 46 Smoking pack-years: 23.00 Smoking status: Current every day smoker Tobacco type: cigarettes Second hand tobacco smoke exposure: No Smoking end date: 03/14/20 Alcohol intake: current Drinks per week: 2 Alcohol use details: Socially Substance use: never Substance use type: does not use Gender identity (if verbalized by the patient): Male Sexual Orientation (if Verbalized by the Patient): Straight or Heterosexual Spiritual care concerns: No Exam Narrative: Gen: Alert, oriented, no acute distress Eyes: EOMI, no icterus Pulm: Respirations even and unlabored, symmetric thorax expansion, no audible stridor or visible cyanosis CV: 2+ DP and PT pulses bilaterally. Regular rate and rhythm, no murmurs GI: No distension, no voluntary/involuntary guarding Neuro: AOx4, moves all extremities without apparent difficulty or weakness, follows commands MSK: Medial aspect of patient's right MTP is swollen and tender to palpation. There is pain with range of motion of the toe. Skin: No jaundice, no visi
[2022-01-22] MEDS: predniSONE 20 MG TABLET 40 MG PO (09:13)
[2022-01-22] MEDS: HYDROcodone/acetaminophen (*CRX) 5-325 MG TABLET 1 TAB PO (09:25)
[2022-01-22 10:00] VITALS: BP 167/93; PULSE 60; RESP 18; O2SAT 98
== END 2022-01-22 10:01 | disposition home or self-care (01) ==
PROVIDERS: Emergency Provider Emergency Medicine; PCP Family Medicine
DX: M10.9 Gout, unspecified (principal); I12.9 Hypertensive chronic kidney disease with stage 1 through stage 4 chronic kidney disease, or unspecified chronic kidney disease; N18.30 Chronic kidney disease, stage 3 unspecified; E78.5 Hyperlipidemia, unspecified; I69.90 Unspecified sequelae of unspecified cerebrovascular disease; F17.210 Nicotine dependence, cigarettes, uncomplicated; Z79.82 Long term (current) use of aspirin
CPT/HCPCS: 99283; A9270; J7512

== ENCOUNTER 2022-03-16 15:27 | Outpatient (CLI) | payer MEDICARE, SELFPAY ==
[2022-03-16 20:49] LABS: Alanine Aminotransferase 34 U/L (6-50); Albumin Level 4.7 g/dL (3.5-5.1); Alkaline Phosphatase 91 U/L (38-126); Anion Gap 11 mmol/L (8-16); Aspartate Amino Transferase 40 U/L (17-59); Bilirubin,Total 0.6 mg/dL (0.2-1.3); Blood Urea Nitrogen 29 mg/dL (9-20); Calcium 9.3 mg/dL (8.4-10.2); Carbon Dioxide 23 mmol/L (22-30); Chloride 104 mmol/L (98-107); Estimated Glomerular Filt Rate 46; Glucose 103 mg/dL (65-110); Potassium 4.5 mmol/L (3.4-5.0); Sodium 138 mmol/L (137-145); Uric Acid 10.7 mg/dL (3.5-8.5)
[2022-03-16 22:34] LABS: Hemoglobin A1C 5.9 % (<5.7)
== END 2022-03-16 15:28 | disposition home or self-care (01) ==
PROVIDERS: PCP Family Medicine; Visit Provider Family Medicine
DX: M10.00 Idiopathic gout, unspecified site (principal); I10 Essential (primary) hypertension; E55.9 Vitamin D deficiency, unspecified; R73.9 Hyperglycemia, unspecified
CPT/HCPCS: 36415; 80053; 82306; 83036; 84550

== ENCOUNTER 2022-04-05 07:45 | Emergency (ER) | payer MEDICARE, SELFPAY ==
[2022-04-05] VITALS (8 sets, daily range): BP systolic 132–145; BP diastolic 69–77; PULSE 71; RESP 18; TEMP 36.9; O2SAT 100
--- NOTE | 2022-04-05 08:01 | ED.LOWEXIN ---
HPI - Extremity Injury (Lower) General Chief Complaint: Extremity Injury, Lower Stated Complaint: gout, L foot Time Seen by Provider: 04/05/22 07:47 History of Present Illness HPI Narrative: This is a 66-year-old male with past medical history of hypertension and gout, who presented to the emergency department complaining of right great toe pain for the past week. He states this is identical to his previous gouty flares, describes pain as sharp, 10 out of 10, located in the right great toe without radiation. He denies fevers, chills, nausea or vomiting. He states he has been out of his colchicine for the past 11 days. Related Data Home Medications Medication Instructions Recorded Confirmed aspirin 81 mg tablet,delayed 81 mg PO DAILY 12/24/20 07/15/21 release febuxostat 40 mg tablet (Uloric) 40 mg PO DAILY 04/28/21 07/15/21 Allergies Allergy/AdvReac Type Severity Reaction Status Date / Time No Known Allergies Allergy Verified 04/05/22 07:55 Review of Systems Review of Systems: CONSTITUTIONAL: Denies fever, chills, or sweats. EYES: Denies visual changes, redness, or discharge. ENT: Denies rhinorrhea, congestion, sore throat, or otalgia. CARDIOVASCULAR: Denies chest pain, palpitations, or edema. RESPIRATORY: Denies cough or dyspnea. GASTROINTESTINAL: Denies abdominal pain, nausea, vomiting, or diarrhea. GENITOURINARY: Denies dysuria or hematuria. SKIN: Denies rash or itching. MUSCULOSKELETAL: +Right great toe pain, denies back pain, NEUROLOGIC: Denies headache, numbness, dizziness, or weakness. PSYCHIATRIC: Denies anxiety or depression. [facility] Past Medical History Medical History Arthritis Chronic right shoulder pain CKD (chronic kidney disease) stage 3, GFR 30-59 ml/min Cognitive impairment Colon cancer screening Dyslipidemia Erectile dysfunction Essential hypertension Gout Headache, migraine History of CVA with residual deficit Inguinal hernia without obstruction or gangrene Memory loss Right foot pain Rotator cuff tendonitis Vitamin D deficiency Surgical History Surgical History History of shoulder surgery (~2015) left shoulder History of tooth extraction Hx of left inguinal hernia repair Laparoscopic left inguinal repair with mesh Mayelin asst. 06-16- Family History Family History Sibling Seizure disorder Father , age 80 Cerebrovascular accident Grandparent Pulmonary disorder Grandparent History of blood clot in brain Grandparent , age 91 Cerebrovascular accident Social History Social History Years smoked: 46 Smoking status: Current every day smoker Tobacco type: cigarettes Second hand tobacco smoke exposure: No Smoking end date: 03/14/20 Alcohol intake: current Drinks per week: 2 Alcohol use details: Socially Substance use: never Substance use type: does not use Additional living arrangements comments: lives with stepdaughter Gender identity (if verbalized by the patient): Male Sexual Orientation (if Verbalized by the Patient): Straight or Heterosexual Spiritual care concerns: No Exam Narrative: GENERAL: Well-appearing, well-nourished, and in no acute distress. Appears uncomfortable HEAD: Normocephalic, atraumatic. EYES: PERRLA and EOMI. ENT: Nares clear, no rhinorrhea or epistaxis. Mucous membranes moist. Oropharynx without tonsillar hypertrophy exudate or other lesions. NECK: Supple. No adenopathy or masses. No JVD CHEST: Clear to auscultation. No respiratory distress. No wheezes rales or rhonchi HEART: Regular rate and rhythm. No murmur heard. Normal peripheral pulses. ABDOMEN: Soft, nontender, nondistended, normal active bowel sounds. EXTREMITIES: Mild warmth to touch and tender to palpation ov
--- NOTE | 2022-04-05 08:11 | PC.NURSE ---
Spoke with Dr Woods. Verbal orders to give po meds even though known pt does not have a ride home
[2022-04-05] MEDS: oxyCODONE HCL (*CRX) 5 MG TAB IR 2.5 MG PO (08:13)
== END 2022-04-05 09:00 | disposition home or self-care (01) ==
PROVIDERS: Emergency Provider Preventive Medicine Aerospace Medicine; PCP Family Medicine
DX: M10.9 Gout, unspecified (principal); I12.9 Hypertensive chronic kidney disease with stage 1 through stage 4 chronic kidney disease, or unspecified chronic kidney disease; N18.30 Chronic kidney disease, stage 3 unspecified; E78.5 Hyperlipidemia, unspecified; E55.9 Vitamin D deficiency, unspecified; I69.951 Hemiplegia and hemiparesis following unspecified cerebrovascular disease affecting right dominant side; Z79.82 Long term (current) use of aspirin; Z87.891 Personal history of nicotine dependence
CPT/HCPCS: 99283; A9270

== ENCOUNTER 2022-07-15 06:52 | Outpatient (CLI) | payer MEDICARE, SELFPAY ==
[2022-07-15 09:28] LABS: Alanine Aminotransferase 27 U/L (6-50); Albumin Level 4.5 g/dL (3.5-5.1); Alkaline Phosphatase 87 U/L (38-126); Anion Gap 8 mmol/L (8-16); Aspartate Amino Transferase 25 U/L (17-59); Bilirubin,Total 0.7 mg/dL (0.2-1.3); Blood Urea Nitrogen 20 mg/dL (9-20); Calcium 9.2 mg/dL (8.4-10.2); Carbon Dioxide 27 mmol/L (22-30); Chloride 105 mmol/L (98-107); Estimated Glomerular Filt Rate 49; Glucose 112 mg/dL (65-110); Potassium 4.2 mmol/L (3.4-5.0); Sodium 140 mmol/L (137-145); Uric Acid 9.4 mg/dL (3.5-8.5)
== END 2022-07-15 06:53 | disposition home or self-care (01) ==
LOC: ANHLAB 06:55
PROVIDERS: PCP Family Medicine; Visit Provider Podiatrist Foot & Ankle Surgery
DX: M10.079 Idiopathic gout, unspecified ankle and foot (principal)
CPT/HCPCS: 36415; 80053; 84550

== ENCOUNTER 2022-08-17 08:28 | Emergency (ER) | payer MEDICARE, SELFPAY ==
--- NOTE | ~2022-08-17 | CT_ITS ---
EXAMINATION: CT abdomen pelvis w con DATE: 08/17/2022 10:29 INDICATION: Left lower quadrant abdominal pain TECHNIQUE: Computed tomography (CT) of the abdomen and pelvis was performed with 100 CC Omnipaque 350 intravenous contrast. Automated exposure control and iterative reconstruction technique were employe d. Exam dose: 882.28 mGy-cm total exam DLP. COMPARISON: None. FINDINGS: Bilateral gynecomastia. Left lower lobe calcified pulmonary granulomas. The lung bases are clear of infiltrate or consolidati on. Heart size is within normal range. No pericardial or pleural effusion. Small sliding hiatal hernia. The liver, gallbladder, bile ducts, pancreas and pancreatic duct are unremarkable. Multiple splenic c alcified granulomas. Normal splenic size. Normal morphology of the adrenal glands. Bilateral probable renal cysts, measuring up to 1 cm on the right, 7 mm on the left. No ureteral calc ulus or hydroureteronephrosis. Prominent prostate enlargement and associated moderate diffuse thickening of the urinary bladder wall Right fat-containing inguinal hernia. Small fat-containing umbilical hernia. Normal appendix. No bowel obstruction or intraperitoneal free air. Normal caliber of the abdominal aorta. No intraperitoneal or retroperitoneal or pelvic mass lesion or adenopathy or ascites. No suspicious osteolytic or osteoblastic lesions. Mild degenerative changes of the thoracic and lumba r spine. IMPRESSION: Bilateral gynecomastia Small sliding hiatal hernia Bilateral renal cysts Prostate enlargement Right fat-containing inguinal hernia Small fat-containing umbilical hernia Normal appendix Reviewed, dictated and finalized at [facility]. Reviewed, dictated and finalized at [facility]. [employer]
[2022-08-17 08:29] VITALS: BP 170/78; PULSE 66; RESP 16; TEMP 36.6; O2SAT 100
[2022-08-17 08:50] LABS: Basophils Percent Auto 0.6 % (0.2-1.2); Eosinophils Absolute Auto 0.4 K/mm3 (0-0.3); Eosinophils Percent Auto 6.1 % (0-4.4); Hematocrit 45.7 % (42.0-52.0); Hemoglobin 14.3 g/dL (14.0-18.0); Immature Granulocyte Absolute 0.02 K/mm3 (0.00-0.031); Immature Granulocyte Percent A 0.3 % (0-0.5); Lymphocytes Percent Auto 30.4 % (18.3-44.2); Mean Corpuscular HGB Conc 31.3 g/dl (32-36); Mean Corpuscular Volume 89.4 fl (80-100); Mean Platelet Volume 10.2 fl (7.4-10.4); Monocytes Absolute Auto 0.6 K/mm3 (0.1-0.6); Monocytes Percent Auto 9.7 % (2.6-8.5); Neutrophils Absolute Auto 3.3 K/mm3 (1.3-6.7); Neutrophils Percent Auto 52.9 % (45.5-73.1); Platelet Count Result 221 k/mm3 (150-375); Red Blood Count 5.11 M/mm3 (4.6-6.20); White Blood Count 6.3 K/mm3 (4.5-10.0)
[2022-08-17 08:56] LABS: Alanine Aminotransferase 28 U/L (6-50); Albumin Level 4.5 g/dL (3.5-5.1); Alkaline Phosphatase 100 U/L (38-126); Anion Gap 5 mmol/L (8-16); Aspartate Amino Transferase 24 U/L (17-59); Bilirubin,Total 0.6 mg/dL (0.2-1.3); Blood Urea Nitrogen 18 mg/dL (9-20); Calcium 9.1 mg/dL (8.4-10.2); Carbon Dioxide 29 mmol/L (22-30); Chloride 104 mmol/L (98-107); Estimated CRCL calculation 41 ml/min; Estimated Glomerular Filt Rate 57; Glucose 102 mg/dL (65-110); Lipase 34 U/L (23-300); Potassium 4.2 mmol/L (3.4-5.0); Sodium 138 mmol/L (137-145)
[2022-08-17 09:09] LABS: Add Urine Microscopic? NO; Appearance Urine Clear (Clear); Bilirubin Urine Negative (Negative); Blood Urine Negative (Negative); Color Urine Yellow (Yellow); Glucose Urine UA Negative (Negative); Ketones Urine Negative (Negative); Leukocyte Esterase Ur Negative LEU/UL (Negative); Nitrate Urine Negative (Negative); Protein Urine Negative (Negative); Urobilinogen Urine 0.2 mg/dL (<2.0)
[2022-08-17] MEDS: MORPHINE SULFATE (*CRX) 4 MG/ML INJ IV PUSH (09:57)
[2022-08-17 10:00] VITALS: BP 160/70; PULSE 70; RESP 16; O2SAT 99
--- NOTE | 2022-08-17 12:19 | ED.ABDPAIN ---
HPI - Abdominal Pain General Chief Complaint: Abdominal Pain Stated Complaint: stomach Time Seen by Provider: 08/17/22 09:29 History of Present Illness HPI narrative: Patient is a 67-year-old male who presents ER with left lower quadrant abdominal pain. Ongoing over the last 2 days. Worse with palpation and movement. No nausea or vomiting. Denies fevers or chills or sweats. No diarrhea or constipation. No history of diverticulitis. Relieving factors include sitting still. Related Data Home Medications Medication Instructions Recorded Confirmed aspirin 81 mg tablet,delayed 81 mg PO DAILY 12/24/20 07/27/22 release febuxostat 40 mg tablet (Uloric) 40 mg PO DAILY 04/28/21 07/27/22 Allergies Allergy/AdvReac Type Severity Reaction Status Date / Time No Known Allergies Allergy Verified 08/17/22 08:31 Review of Systems Review of Systems: All systems reviewed & are unremarkable except as noted in HPI and below Constitutional: Constitutional: Denies chills, Denies fatigue and Denies fever(s) ENT: Denies nasal congestion and Denies sore throat Cardiovascular: Cardiovascular: Denies chest pain, Denies rapid heart rate and Denies radiating jaw, neck or arm pain Gastrointestinal: Gastrointestinal: Reports abdominal pain, Denies diarrhea, Denies nausea and Denies vomiting Genitourinary: Genitourinary: Denies dysuria and Denies urinary frequency [facility] Past Medical History Medical History Arthritis Chronic right shoulder pain CKD (chronic kidney disease) stage 3, GFR 30-59 ml/min Cognitive impairment Colon cancer screening Dyslipidemia Erectile dysfunction Essential hypertension Gout Headache, migraine History of CVA with residual deficit Inguinal hernia without obstruction or gangrene Memory loss Prediabetes Right foot pain Rotator cuff tendonitis Vitamin D deficiency Surgical History Surgical History History of shoulder surgery (~2016) left shoulder History of tooth extraction Hx of left inguinal hernia repair Laparoscopic left inguinal repair with mesh Mayelin solomon. 06-16-21 Family History Family History Sibling Seizure disorder Father , age 80 Cerebrovascular accident Grandparent Pulmonary disorder Grandparent History of blood clot in brain Grandparent , age 91 Cerebrovascular accident Social History Social History Smoking packs per day: 0.75 Smoking cigarettes per day: 15.0 Years smoked: 45 Smoking pack-years: 33.75 Smoking status: Current every day smoker Tobacco type: cigarettes Second hand tobacco smoke exposure: No Smoking end date: 03/14/20 Alcohol intake: current Drinks per week: 2 Alcohol use details: Socially Substance use: never Substance use type: does not use Additional living arrangements comments: lives with stepdaughter Gender identity (if verbalized by the patient): Male Sexual Orientation (if Verbalized by the Patient): Straight or Heterosexual Spiritual care concerns: No Exam Narrative: GENERAL: Well-appearing, well-nourished, and in no acute distress. HEAD: Normocephalic, atraumatic. EYES: PERRL and EOMI. ENT: Mucous membranes moist. CHEST: Clear to auscultation. No respiratory distress. HEART: Regular rate and rhythm. Normal peripheral pulses. ABDOMEN: Soft, tender palpation left lower quadrant with guarding, nondistended. EXTREMITIES: Normal range of motion. No edema. SKIN: Warm, dry, no rash. NEURO: Alert and oriented x3. PSYCH: Normal mood and affect. Course Course Emergency Course: No evidence of infection or acute injury. May have abdominal wall muscle strain recommend muscle relaxers and [id number] pain medication. Patient verbalized understanding of the lab r
[2022-08-17 12:40] VITALS: BP 160/70; PULSE 70; RESP 16; O2SAT 99
== END 2022-08-17 12:45 | disposition home or self-care (01) ==
PROVIDERS: Emergency Provider Emergency Medicine; PCP Family Medicine
DX: S39.011A Strain of muscle, fascia and tendon of abdomen, initial encounter (principal); I12.9 Hypertensive chronic kidney disease with stage 1 through stage 4 chronic kidney disease, or unspecified chronic kidney disease; N18.30 Chronic kidney disease, stage 3 unspecified; E78.5 Hyperlipidemia, unspecified; I69.951 Hemiplegia and hemiparesis following unspecified cerebrovascular disease affecting right dominant side; R73.03 Prediabetes; E55.9 Vitamin D deficiency, unspecified; M19.90 Unspecified osteoarthritis, unspecified site; Z87.891 Personal history of nicotine dependence; Z79.82 Long term (current) use of aspirin; K44.9 Diaphragmatic hernia without obstruction or gangrene; K40.90 Unilateral inguinal hernia, without obstruction or gangrene, not specified as recurrent; K42.9 Umbilical hernia without obstruction or gangrene; N40.0 Benign prostatic hyperplasia without lower urinary tract symptoms; X58.XXXA Exposure to other specified factors, initial encounter
CPT/HCPCS: 36415; 74177; 80053; 81003; 83690; 85025; 96374; 99284; J2270; Q9967

== ENCOUNTER 2022-10-02 11:56 | Emergency (ER) | payer MEDICARE, SELFPAY ==
--- NOTE | ~2022-10-02 | XR_ITS ---
XR wrist RT min 3V 10/02/2022 12:22 Indication: Right wrist pain Procedure: 4 views right wrist Comparison: No prior studies for comparison. Findings: Osteopenia. There is polyarticular osteoarthritis. No fracture or traumatic malalignment. N o foreign bodies. Impression: 1: No acute fracture. Reviewed, dictated and finalized at [facility]. [employer] Impression: 1: No acute fracture.
[2022-10-02 12:28] VITALS: BP 186/74; PULSE 79; RESP 18; TEMP 36.9; O2SAT 100
[2022-10-02 15:15] LABS: Uric Acid 7.8 mg/dL (3.5-8.5)
[2022-10-02] MEDS: HYDROcodone/acetaminophen (*CRX) 5-325 MG TABLET 1 TAB PO (15:21)
[2022-10-02 15:32] LABS: Basophils Percent Auto 0.3 % (0.2-1.2); Eosinophils Absolute Auto 0.3 K/mm3 (0-0.3); Eosinophils Percent Auto 4.6 % (0-4.4); Hematocrit 46.2 % (42.0-52.0); Hemoglobin 14.7 g/dL (14.0-18.0); Immature Granulocyte Absolute 0.02 K/mm3 (0.00-0.031); Immature Granulocyte Percent A 0.3 % (0-0.5); Lymphocytes Absolute Auto 1.77 K/mm3 (0.9-3.2); Lymphocytes Percent Auto 28.2 % (18.3-44.2); Mean Corpuscular HGB Conc 31.8 g/dl (32-36); Mean Corpuscular Hemoglobin 28.1 pg (26-34); Mean Corpuscular Volume 88.3 fl (80-100); Mean Platelet Volume 10.5 fl (7.4-10.4); Monocytes Absolute Auto 0.5 K/mm3 (0.1-0.6); Monocytes Percent Auto 8.3 % (2.6-8.5); Neutrophils Absolute Auto 3.7 K/mm3 (1.3-6.7); Neutrophils Percent Auto 58.3 % (45.5-73.1); Platelet Count Result 215 k/mm3 (150-375); Red Blood Count 5.23 M/mm3 (4.6-6.20); Red Cell Distribution Width 13.3 % (11.5-14.5); White Blood Count 6.3 K/mm3 (4.5-10.0)
--- NOTE | 2022-10-02 16:03 | ED.UPPEXIN ---
HPI - Extremity Injury (Upper) General Chief Complaint: Extremity Injury, Upper Stated Complaint: right wrist pain/swelling, NKI Time Seen by Provider: 10/02/22 14:06 History of Present Illness HPI narrative: Patient is a 67-year-old male who presents ER with right wrist pain and swelling. Ongoing over the last 24 hours. No known trauma. Has a history of gout. Has limited range of motion due to the pain. Denies fevers or chills or sweats. Most of the pain is over the ulnar aspect of the volar wrist that extends around to the dorsal aspect. No numbness or tingling in the fingers. Related Data Home Medications Medication Instructions Recorded Confirmed aspirin 81 mg tablet,delayed 81 mg PO DAILY 12/24/20 07/27/22 release febuxostat 40 mg tablet (Uloric) 40 mg PO DAILY 04/28/21 07/27/22 Allergies Allergy/AdvReac Type Severity Reaction Status Date / Time No Known Allergies Allergy Verified 08/17/22 08:31 Review of Systems Constitutional: Constitutional: Denies chills, Denies fatigue and Denies fever(s) Musculoskeletal: Musculoskeletal: Denies myalgias, Reports arthralgias, Reports joint swelling and Denies muscle cramps Integumentary/Breasts: Skin/Breast: Denies erythema and Denies rash Neurologic: Denies focal weakness and Denies numbness PMFSH Past Medical History Medical History Arthritis Chronic right shoulder pain CKD (chronic kidney disease) stage 3, GFR 30-59 ml/min Cognitive impairment Colon cancer screening Dyslipidemia Erectile dysfunction Essential hypertension Gout Headache, migraine History of CVA with residual deficit Inguinal hernia without obstruction or gangrene Memory loss Prediabetes Right foot pain Rotator cuff tendonitis Vitamin D deficiency Surgical History Surgical History History of shoulder surgery (~2016) left shoulder History of tooth extraction Hx of left inguinal hernia repair Laparoscopic left inguinal repair with mesh Mayelin solomon. 06-16-21 Family History Family History Sibling Seizure disorder Father , age 80 Cerebrovascular accident Grandparent Pulmonary disorder Grandparent History of blood clot in brain Grandparent , age 91 Cerebrovascular accident Social History Social History Smoking packs per day: 0.75 Smoking cigarettes per day: 15.0 Years smoked: 45 Smoking pack-years: 33.75 Smoking status: Current every day smoker Tobacco type: cigarettes Second hand tobacco smoke exposure: No Smoking end date: 03/14/20 Alcohol intake: current Drinks per week: 2 Alcohol use details: Socially Substance use: never Substance use type: does not use Living arrangements: with family Additional living arrangements comments: lives with stepdaughter Occupation/Education: retired Gender identity (if verbalized by the patient): Male Sexual Orientation (if Verbalized by the Patient): Straight or Heterosexual Spiritual care concerns: No Exam Narrative: GENERAL: Well-appearing, well-nourished, and in no acute distress. HEAD: Normocephalic, atraumatic. CHEST: Clear to auscultation. No respiratory distress. HEART: Regular rate and rhythm. Normal peripheral pulses. EXTREMITIES: Focused exam of the right upper extremity reveals tenderness at the right wrist over the carpal tunnel and over the ulnar aspect. There is no redness or increased warmth when compared to the left side. Patient can slightly flex and extend his wrist but cannot perform full range of motion due to pain. No tenderness to the palm. Normal radial and ulnar pulses. Brisk capillary refill in the hand. Denies any numbness on exam. SKIN: Warm, dry, no rash. NEURO: N Alert and oriented x3. PSYCH: Normal mood and affect
[2022-10-02 16:11] LABS: Erythrocyte Sedimentation Rate 11 mm/hr (0-20)
[2022-10-02 16:26] LABS: Anion Gap 9 mmol/L (8-16); Blood Urea Nitrogen 20 mg/dL (9-20); CRP 0.7 mg/dL (<1.0); Calcium 9.1 mg/dL (8.4-10.2); Carbon Dioxide 25 mmol/L (22-30); Chloride 108 mmol/L (98-107); Estimated CRCL calculation 47 ml/min; Estimated Glomerular Filt Rate > 60; Glucose 104 mg/dL (65-110); Potassium 4.5 mmol/L (3.4-5.0); Sodium 142 mmol/L (137-145)
[2022-10-02 17:17] VITALS: BP 162/79; PULSE 69; RESP 18; O2SAT 100
== END 2022-10-02 17:19 | disposition home or self-care (01) ==
PROVIDERS: Emergency Provider Emergency Medicine; PCP Family Medicine
DX: S63.501A Unspecified sprain of right wrist, initial encounter (principal); I12.9 Hypertensive chronic kidney disease with stage 1 through stage 4 chronic kidney disease, or unspecified chronic kidney disease; N18.30 Chronic kidney disease, stage 3 unspecified; E78.5 Hyperlipidemia, unspecified; I69.90 Unspecified sequelae of unspecified cerebrovascular disease; R73.03 Prediabetes; E55.9 Vitamin D deficiency, unspecified; M19.90 Unspecified osteoarthritis, unspecified site; M10.9 Gout, unspecified; Z87.891 Personal history of nicotine dependence; X58.XXXA Exposure to other specified factors, initial encounter
CPT/HCPCS: 36415; 73110; 80048; 84550; 85025; 85652; 86140; 99283; A9270

== ENCOUNTER 2023-01-03 06:43 | Outpatient (CLI) | payer MEDICARE, SELFPAY ==
[2023-01-03 07:36] LABS: Hematocrit 44.7 % (42.0-52.0); Hemoglobin 13.9 g/dL (14.0-18.0); Mean Corpuscular HGB Conc 31.1 g/dl (32-36); Mean Corpuscular Hemoglobin 27.7 pg (26-34); Mean Platelet Volume 10.6 fl (7.4-10.4); Platelet Count Result 216 k/mm3 (150-375); Red Blood Count 5.02 M/mm3 (4.6-6.20); Red Cell Distribution Width 13.4 % (11.5-14.5)
[2023-01-03 07:46] LABS: Albumin Level 4.4 g/dL (3.5-5.1); Anion Gap 6 mmol/L (8-16); Blood Urea Nitrogen 16 mg/dL (9-20); Calcium 8.8 mg/dL (8.4-10.2); Carbon Dioxide 30 mmol/L (22-30); Chloride 105 mmol/L (98-107); Estimated Glomerular Filt Rate 57; Glucose 100 mg/dL (65-110); Phosphorus 3.6 mg/dL (2.5-4.5); Potassium 4.2 mmol/L (3.4-5.0); Sodium 141 mmol/L (137-145)
[2023-01-03 07:53] LABS: Complement C3 120 mg/dL (88-165)
[2023-01-03 08:28] LABS: Creatinine Urine 158.3 mg/dL; Total Protein Urine Random 12 mg/dL; Ur Ttl Prot Creatinine Ratio 0.08 mg/mg (0-0.20)
[2023-01-03 08:39] LABS: Parathyroid Intact 126.9 pg/mL (7.5-53.5)
[2023-01-03 08:43] LABS: Erythrocyte Sedimentation Rate 15 mm/hr (0-20)
[2023-01-09 16:55] LABS: Complement Total CH50 >60 U/mL (31-60)
[2023-01-11 05:25] LABS: Anti Nuclear Antibody Pattern Nuclear, Speckled
== END 2023-01-03 06:44 | disposition home or self-care (01) ==
PROVIDERS: PCP Family Medicine; Visit Provider Internal Medicine Nephrology
DX: N18.31 Chronic kidney disease, stage 3a (principal)
CPT/HCPCS: 36415; 80069; 82570; 83970; 84156; 85027; 85652; 86038; 86039; 86160; 86162; 86334

== ENCOUNTER 2023-01-24 08:13 | Outpatient (CLI) | payer MEDICARE, SELFPAY ==
[2023-01-24 16:51] LABS: Rheumatoid Factor < 12.0 IU/ML (<12)
[2023-01-27 13:16] LABS: ANA Cascade Screen Positive (Negative); SM Antibody <1.0; SM/RNP Antibody <1.0; SS-A <1.0; SS-B <1.0
[2023-01-28 08:29] LABS: Anti Nuclear Antibody Pattern Nuclear, Speckled
[2023-01-28 09:27] LABS: Anti Glomerular Basement Memb <1.0 AI (<1.0)
[2023-01-31 13:23] LABS: RNP Antibody <1.0; Sm Antibody <1.0; Sm/RNP Antibody <1.0
[2023-01-31 16:52] LABS: Cryoglobulin, QL Negative (Negative)
[2023-02-01 05:24] LABS: Centromere B Antibody <1.0; Jo-1 Antibody <1.0; Ribosomal Antibody <1.0; Sjogren's Antibody (SS-B) <1.0
== END 2023-01-24 08:14 | disposition home or self-care (01) ==
LOC: ANHGOSHLAB 08:13
PROVIDERS: PCP Family Medicine; Visit Provider Internal Medicine Nephrology
DX: R76.0 Raised antibody titer (principal)
CPT/HCPCS: 36415; 82595; 83520; 86038; 86039; 86225; 86235; 86430

== ENCOUNTER 2023-04-22 22:30 | Emergency (ER) | payer MEDICARE, SELFPAY ==
[2023-04-22 22:38] VITALS: BP 168/82; PULSE 78; RESP 20; TEMP 36.6; O2SAT 100
[2023-04-23 00:42] VITALS: BP 163/96; PULSE 63; RESP 16; O2SAT 100
[2023-04-23 01:05] LABS: Basophils Percent Auto 0.4 % (0.2-1.2); Eosinophils Absolute Auto 0.4 K/mm3 (0-0.3); Eosinophils Percent Auto 6.1 % (0-4.4); Hematocrit 42.7 % (42.0-52.0); Hemoglobin 13.6 g/dL (14.0-18.0); Immature Granulocyte Absolute 0.01 K/mm3 (0.00-0.031); Immature Granulocyte Percent A 0.1 % (0-0.5); Lymphocytes Absolute Auto 2.07 K/mm3 (0.9-3.2); Lymphocytes Percent Auto 30.8 % (18.3-44.2); Mean Corpuscular HGB Conc 31.9 g/dl (32-36); Mean Corpuscular Hemoglobin 28.6 pg (26-34); Mean Corpuscular Volume 89.9 fl (80-100); Mean Platelet Volume 11.2 fl (7.4-10.4); Monocytes Absolute Auto 0.7 K/mm3 (0.1-0.6); Monocytes Percent Auto 9.7 % (2.6-8.5); Neutrophils Absolute Auto 3.6 K/mm3 (1.3-6.7); Neutrophils Percent Auto 52.9 % (45.5-73.1); Platelet Count Result 192 k/mm3 (150-375); Red Blood Count 4.75 M/mm3 (4.6-6.20); Red Cell Distribution Width 13.7 % (11.5-14.5); White Blood Count 6.7 K/mm3 (4.5-10.0)
[2023-04-23 01:17] LABS: Alanine Aminotransferase 31 U/L (6-50); Albumin Level 4.3 g/dL (3.5-5.1); Alkaline Phosphatase 105 U/L (38-126); Anion Gap 6 mmol/L (8-16); Aspartate Amino Transferase 38 U/L (17-59); Bilirubin,Total 0.7 mg/dL (0.2-1.3); Blood Urea Nitrogen 19 mg/dL (9-20); Calcium 8.8 mg/dL (8.4-10.2); Carbon Dioxide 28 mmol/L (22-30); Chloride 105 mmol/L (98-107); Estimated CRCL calculation 43 ml/min; Estimated Glomerular Filt Rate > 60; Glucose 99 mg/dL (65-110); Potassium 4.1 mmol/L (3.4-5.0); Sodium 139 mmol/L (137-145)
--- NOTE | 2023-04-23 01:46 | ED.GENADULT ---
HPI - General Adult General Chief complaint: Ear Stated complaint: left facial and ear lobe swelling x 2 days Time Seen by Provider: 04/23/23 00:41 Source: patient Mode of arrival: ambulatory Limitations: no limitations History of Present Illness HPI narrative: This is a 67-year-old male who presents to the ED with chief complaint of left ear and left-sided facial pain ongoing for the past 3 days. Patient states that he took an earring out 3 days ago and ever since then he has had swelling and pain around that left ear. Reports drainage from the area but denies any drainage from inside the ear. Denies fevers, chills, nausea, vomiting. Related Data Home Medications Medication Instructions Recorded Confirmed aspirin 81 mg tablet,delayed 81 mg PO DAILY 12/24/20 01/27/23 release febuxostat 40 mg tablet (Uloric) 40 mg PO DAILY 04/28/21 01/27/23 Allergies Allergy/AdvReac Type Severity Reaction Status Date / Time No Known Allergies Allergy Verified 04/22/23 22:46 Review of Systems Review of Systems: All systems as dictated in [facility] Past Medical History Medical History Arthritis Chronic right shoulder pain CKD (chronic kidney disease) stage 3, GFR 30-59 ml/min Cognitive impairment Colon cancer screening Dyslipidemia Erectile dysfunction Essential hypertension Gout Headache, migraine History of CVA with residual deficit Inguinal hernia without obstruction or gangrene Memory loss Prediabetes Right foot pain Rotator cuff tendonitis Vitamin D deficiency Surgical History Surgical History History of shoulder surgery (~2015) left shoulder History of tooth extraction Hx of left inguinal hernia repair Laparoscopic left inguinal repair with mesh Mayelin asst. 06-16-21 Family History Family History Sibling Seizure disorder Father , age 80 Cerebrovascular accident Grandparent Pulmonary disorder Grandparent History of blood clot in brain Grandparent , age 91 Cerebrovascular accident Social History Social History Smoking packs per day: 0.75 Smoking cigarettes per day: 15.0 Years smoked: 45 Smoking pack-years: 33.75 Smoking status: Current every day smoker Tobacco type: cigarettes Second hand tobacco smoke exposure: No Smoking end date: 03/14/20 Alcohol intake: current Drinks per week: 2 Alcohol use details: Socially Substance use: never Substance use type: does not use Living arrangements: with family Additional living arrangements comments: lives with stepdaughter Occupation/Education: retired Gender identity (if verbalized by the patient): Male Sexual Orientation (if Verbalized by the Patient): Straight or Heterosexual Spiritual care concerns: No Exam Narrative: GENERAL: Well-appearing, well-nourished, and in no acute distress. HEAD: Normocephalic, atraumatic. EYES: PERRLA and EOMI. ENT: TMs intact bilaterally. No abnormal findings of the canals bilaterally. Nares clear, no rhinorrhea or epistaxis. Mucous membranes moist. Oropharynx without tonsillar hypertrophy exudate or other lesions. NECK: Supple. No adenopathy or masses. CHEST: No respiratory distress. Clear to auscultation. No wheezes rales or rhonchi HEART: Regular rate and rhythm. No murmur heard. Normal peripheral pulses. ABDOMEN: Soft, nontender, nondistended, normal active bowel sounds. MSK: Normal range of motion. No edema. SKIN: Small area of swelling, fluctuance and induration to the left side of the face just be high in the ear. The area comes to ahead and there is some purulent drainage. Markedly tender to touch. NEURO: Alert and oriented x3. No focal deficits. PSYCH: Normal mood and affect. Course Vital Signs Vital signs: Vi
[2023-04-23] MEDS: IBUPROFEN 600 MG TABLET PO (01:55)
[2023-04-23] MEDS: AMOXICILLIN/CLAVULANATE K 875-125 MG TAB 1 TABLET PO (01:55)
== END 2023-04-23 02:02 | disposition home or self-care (01) ==
PROVIDERS: Emergency Provider Physician Assistant; PCP Family Medicine
DX: L02.01 Cutaneous abscess of face (principal); I12.9 Hypertensive chronic kidney disease with stage 1 through stage 4 chronic kidney disease, or unspecified chronic kidney disease; N18.30 Chronic kidney disease, stage 3 unspecified; F17.210 Nicotine dependence, cigarettes, uncomplicated
CPT/HCPCS: 10061; 36415; 80053; 85025; 99283; A9270

== ENCOUNTER 2023-08-18 08:37 | Outpatient (CLI) | payer MEDICARE, SELFPAY ==
[2023-08-18 19:32] LABS: Basophils Percent Auto 0.5 % (0.2-1.2); Eosinophils Absolute Auto 0.2 K/mm3 (0-0.3); Eosinophils Percent Auto 3.9 % (0-4.4); Hematocrit 49.8 % (42.0-52.0); Hemoglobin 15.5 g/dL (14.0-18.0); Immature Granulocyte Absolute 0.02 K/mm3 (0.00-0.031); Immature Granulocyte Percent A 0.4 % (0-0.5); Lymphocytes Absolute Auto 1.17 K/mm3 (0.9-3.2); Lymphocytes Percent Auto 20.6 % (18.3-44.2); Mean Corpuscular HGB Conc 31.1 g/dl (32-36); Mean Corpuscular Hemoglobin 27.8 pg (26-34); Mean Corpuscular Volume 89.2 fl (80-100); Mean Platelet Volume 11.1 fl (7.4-10.4); Monocytes Absolute Auto 0.6 K/mm3 (0.1-0.6); Monocytes Percent Auto 11.1 % (2.6-8.5); Neutrophils Absolute Auto 3.6 K/mm3 (1.3-6.7); Neutrophils Percent Auto 63.5 % (45.5-73.1); Platelet Count Result 206 k/mm3 (150-375); Red Blood Count 5.58 M/mm3 (4.6-6.20); Red Cell Distribution Width 13.5 % (11.5-14.5); White Blood Count 5.7 K/mm3 (4.5-10.0)
[2023-08-18 19:42] LABS: Hemoglobin A1C 5.7 % (<5.7)
[2023-08-18 19:51] LABS: Alanine Aminotransferase 36 U/L (6-50); Albumin Level 4.2 g/dL (3.5-5.1); Alkaline Phosphatase 105 U/L (38-126); Anion Gap 9 mmol/L (8-16); Aspartate Amino Transferase 34 U/L (17-59); Bilirubin,Total 0.9 mg/dL (0.2-1.3); Blood Urea Nitrogen 19 mg/dL (9-20); Calcium 9.3 mg/dL (8.4-10.2); Carbon Dioxide 28 mmol/L (22-30); Chloride 103 mmol/L (98-107); Cholesterol 192 mg/dL (0-200); Estimated Glomerular Filt Rate 56; Glucose 90 mg/dL (65-110); HDL Direct 69 mg/dL; Potassium 4.5 mmol/L (3.4-5.0); Sodium 140 mmol/L (137-145); Triglycerides 106 mg/dL (<150); Uric Acid 8.8 mg/dL (3.5-8.5)
[2023-08-18 20:08] LABS: LDL Cholesterol Direct 86 mg/dL
[2023-08-18 20:16] LABS: Vitamin D 25 Hydroxy 19.1 ng/mL
[2023-08-18 20:24] LABS: Prostate Specific Antigen 2.7 ng/mL (< OR = 4.0)
== END 2023-08-18 08:38 | disposition home or self-care (01) ==
PROVIDERS: PCP Family Medicine; Visit Provider Family Medicine
DX: M10.00 Idiopathic gout, unspecified site (principal); E55.9 Vitamin D deficiency, unspecified; R73.03 Prediabetes; E78.5 Hyperlipidemia, unspecified; I10 Essential (primary) hypertension; R41.89 Other symptoms and signs involving cognitive functions and awareness; N18.31 Chronic kidney disease, stage 3a; Z00.00 Encounter for general adult medical examination without abnormal findings; E53.8 Deficiency of other specified B group vitamins; Z12.5 Encounter for screening for malignant neoplasm of prostate
CPT/HCPCS: 36415; 80053; 80061; 82306; 82607; 83036; 84153; 84443; 84550; 85025; G0103

== ENCOUNTER 2023-09-27 13:21 | Outpatient (NON) | payer MEDICARE, SELFPAY ==
[2023-10-03 16:48] LABS: Creat 24 Hr 2.82 g/24 h (0.50-2.15); Pro/Creat Ratio 213 mg/g creat (<100); Pro/Creat Ratio mg/mg 0.213 (<0.100); Protein,total, 24 Hr Ur 600 mg/24 h (<100)
== END 2023-09-27 13:22 | disposition home or self-care (01) ==
PROVIDERS: PCP Family Medicine; Visit Provider Internal Medicine Nephrology
DX: E21.1 Secondary hyperparathyroidism, not elsewhere classified (principal); N18.31 Chronic kidney disease, stage 3a
CPT/HCPCS: 86335

== ENCOUNTER 2024-02-01 08:03 | Outpatient (CLI) | payer MEDICARE, SELFPAY ==
[2024-02-01 14:52] LABS: Basophils Percent Auto 0.8 % (0.2-1.2); Eosinophils Absolute Auto 0.3 K/mm3 (0-0.3); Hematocrit 44.6 % (42.0-52.0); Hemoglobin 13.8 g/dL (14.0-18.0); Immature Granulocyte Absolute 0.01 K/mm3 (0.00-0.031); Immature Granulocyte Percent A 0.2 % (0-0.5); Lymphocytes Percent Auto 34.1 % (18.3-44.2); Mean Corpuscular HGB Conc 30.9 g/dl (32-36); Mean Corpuscular Volume 90.7 fl (80-100); Mean Platelet Volume 10.8 fl (7.4-10.4); Monocytes Absolute Auto 0.4 K/mm3 (0.1-0.6); Monocytes Percent Auto 8.8 % (2.6-8.5); Neutrophils Absolute Auto 2.5 K/mm3 (1.3-6.7); Neutrophils Percent Auto 51.1 % (45.5-73.1); Platelet Count Result 237 k/mm3 (150-375); Red Blood Count 4.92 M/mm3 (4.6-6.20); Red Cell Distribution Width 13.6 % (11.5-14.5)
[2024-02-01 15:42] LABS: Vitamin D 25 Hydroxy 35.4 ng/mL
[2024-02-01 15:58] LABS: Alanine Aminotransferase 23 U/L (6-50); Albumin Level 4.5 g/dL (3.5-5.1); Alkaline Phosphatase 91 U/L (38-126); Anion Gap 8 mmol/L (4-12); Aspartate Amino Transferase 29 U/L (17-59); Bilirubin,Total 0.7 mg/dL (0.2-1.3); Blood Urea Nitrogen 30 mg/dL (9-20); Calcium 9.1 mg/dL (8.4-10.2); Carbon Dioxide 27 mmol/L (22-30); Chloride 106 mmol/L (98-107); Cholesterol 168 mg/dL (0-200); Estimated Glomerular Filt Rate 46; Glucose 96 mg/dL (65-110); HDL Direct 57 mg/dL; Potassium 4.4 mmol/L (3.4-5.0); Sodium 141 mmol/L (137-145); Triglycerides 170 mg/dL (<150); Uric Acid 11.6 mg/dL (3.5-8.5)
[2024-02-01 16:24] LABS: Hemoglobin A1C 5.5 % (<5.7)
[2024-02-01 16:38] LABS: LDL Cholesterol Direct 79 mg/dL
[2024-02-01 16:46] LABS: Prostate Specific Antigen 4.4 ng/mL (< OR = 4.0)
== END 2024-02-01 08:04 | disposition home or self-care (01) ==
LOC: ANHGOSHLAB 08:05
PROVIDERS: PCP Family Medicine; Visit Provider Family Medicine
DX: E53.8 Deficiency of other specified B group vitamins (principal); M10.00 Idiopathic gout, unspecified site; E55.9 Vitamin D deficiency, unspecified; Z12.5 Encounter for screening for malignant neoplasm of prostate; R73.03 Prediabetes; I12.9 Hypertensive chronic kidney disease with stage 1 through stage 4 chronic kidney disease, or unspecified chronic kidney disease; N18.31 Chronic kidney disease, stage 3a; E78.5 Hyperlipidemia, unspecified; R41.89 Other symptoms and signs involving cognitive functions and awareness
CPT/HCPCS: 36415; 80053; 80061; 82306; 82607; 83036; 84153; 84443; 84550; 85025; G0103

== ENCOUNTER 2024-04-16 08:15 | Outpatient (CLI) | payer MEDICARE, SELFPAY ==
[2024-04-16 15:09] LABS: Parathyroid Intact 83.1 pg/mL (14.5-75.2)
[2024-04-16 15:17] LABS: Creatinine Urine 179.5 mg/dL
[2024-04-16 15:26] LABS: Vitamin D 25 Hydroxy 24.2 ng/mL
[2024-04-16 15:33] LABS: Prostate Specific Antigen 3.9 ng/mL (< OR = 4.0)
[2024-04-16 15:42] LABS: Total Protein Urine Random < 5 mg/dL; Ur Ttl Prot Creatinine Ratio < 0.03 mg/mg (0-0.20)
[2024-04-16 16:06] LABS: Hematocrit 46.6 % (42.0-52.0); Hemoglobin 14.3 g/dL (14.0-18.0); Mean Corpuscular HGB Conc 30.7 g/dl (32-36); Mean Corpuscular Hemoglobin 28.2 pg (26-34); Mean Corpuscular Volume 91.9 fl (80-100); Mean Platelet Volume 10.3 fl (7.4-10.4); Platelet Count Result 261 k/mm3 (150-375); Red Blood Count 5.07 M/mm3 (4.6-6.20); Red Cell Distribution Width 13.5 % (11.5-14.5); White Blood Count 5.9 K/mm3 (4.5-10.0)
[2024-04-16 17:13] LABS: Albumin Level 4.6 g/dL (3.5-5.1); Anion Gap 10 mmol/L (4-12); Blood Urea Nitrogen 37 mg/dL (9-20); Carbon Dioxide 25 mmol/L (22-30); Chloride 103 mmol/L (98-107); Estimated Glomerular Filt Rate 43; Glucose 84 mg/dL (65-110); Phosphorus 3.3 mg/dL (2.5-4.5); Potassium 4.9 mmol/L (3.4-5.0); Sodium 138 mmol/L (137-145)
== END 2024-04-16 08:16 | disposition home or self-care (01) ==
LOC: ANHGOSHLAB 08:17
PROVIDERS: Student in an Organized Health Care Education/Training Program; PCP Family Medicine; Visit Provider Internal Medicine Nephrology
DX: N18.31 Chronic kidney disease, stage 3a (principal); E21.1 Secondary hyperparathyroidism, not elsewhere classified; R97.20 Elevated prostate specific antigen [PSA]
CPT/HCPCS: 36415; 80069; 82306; 82570; 83970; 84153; 84156; 85027

== ENCOUNTER 2024-05-06 07:20 | Emergency (ER) | payer MEDICARE, SELFPAY ==
--- NOTE | ~2024-05-06 | XR_ITS ---
Right wrist Technique: PA, oblique, lateral, and ulnar deviation views were obtained. Clinical History: Pain Findings: No acute fracture or dislocation is seen. Osseous alignment is anatomic. Joint spaces are p reserved. Soft tissues are unremarkable. Impression: Unremarkable right wrist radiographs. Reviewed, dictated and finalized at location . Impression: Unremarkable right wrist radiographs.
[2024-05-06 07:25] VITALS: BP 154/90; PULSE 67; RESP 16; TEMP 36.6; O2SAT 97
--- NOTE | 2024-05-06 07:56 | ED.GENADULT ---
HPI - General Adult General Chief complaint: Extremity Injury, Upper Stated complaint: R wrist pain Time Seen by Provider: 05/06/24 07:37 History of Present Illness HPI narrative: This is a 69-year-old male with history of gout presenting with right wrist pain. Patient says the pain started yesterday. He does not know any traumatic events. No redness or swelling to the joint. No systemic signs such as fevers chills nausea vomiting or diarrhea. Related Data Home Medications Medication Instructions Recorded Confirmed aspirin 81 mg tablet,delayed 81 mg PO DAILY 12/24/20 04/30/24 release cholecalciferol (vitamin D3) 125 125 mcg PO DAILY 04/24/24 04/24/24 mcg (5,000 unit) capsule Allergies Allergy/AdvReac Type Severity Reaction Status Date / Time No Known Allergies Allergy Verified 05/06/24 07:21 [facility] Past Medical History Medical History Arthritis Chronic right shoulder pain CKD (chronic kidney disease) stage 3, GFR 30-59 ml/min Cognitive impairment Colon cancer screening Dyslipidemia Erectile dysfunction Essential hypertension Gout Headache, migraine History of CVA with residual deficit Inguinal hernia without obstruction or gangrene Memory loss Prediabetes Right foot pain Rotator cuff tendonitis Vitamin D deficiency Surgical History Surgical History History of shoulder surgery (~2015) left shoulder History of tooth extraction Hx of left inguinal hernia repair Laparoscopic left inguinal repair with mesh Mayelin miliant. 06-16-21 Family History Family History Sibling Seizure disorder Father , age 80 Cerebrovascular accident Grandparent Pulmonary disorder Grandparent History of blood clot in brain Grandparent , age 91 Cerebrovascular accident Social History Social History Smoking packs per day: 0.75 Smoking cigarettes per day: 15.0 Years smoked: 45 Smoking pack-years: 33.75 Smoking status: Former smoker Tobacco type: e-cigarettes/vaping Second hand tobacco smoke exposure: No Smoking end date: 08/14/23 Alcohol intake: current Drinks per week: 2 Alcohol use details: Socially Substance use: never Substance use type: does not use Do You Feel Safe in your Home?: Yes Lack of Transportation: No Lack of Food: Never True Current Housing: Decline to Answer Concerned About Future Housing: Decline to Answer Difficulty Paying Gas/Electric Bills: Decline to Answer Difficulty Paying for Meds: Decline to Answer Currently Unemployed: Decline to Answer Education: Decline to Answer Difficulty w/ Childcare or Family Care: Decline to Answer Living arrangements: with family Additional living arrangements comments: lives with stepdaughter Occupation/Education: retired Gender identity (if verbalized by the patient): Male Sexual Orientation (if Verbalized by the Patient): Straight or Heterosexual Spiritual care concerns: No Agree to blood products: Yes Exam Narrative: APPEARANCE: No apparent distress. Head: atraumatic. EYES: EOMI, NOSE: Atraumatic NECK: Trachea midline RESPIRATORY: No increased rate of breathing CARDIOVASCULAR: RRR, ABDOMINAL: Non-distended MUSCULOSKELETAl: Focal exam of the wrist revealed no significant redness or warmth. There is pain with active and passive range of motion. Patient has limited function of his hand due to previous stroke this pain with movements of the hand. Cap refill is normal. Sensation intact. NEURO: Alert. Moving 4/4 extremities SKIN:: Warm, dry. Normal color PSYCHIATRIC: Normal affect Course Vital Signs Vital signs: Vital Signs Temperature 97.8 F 05/06/24 07:25 Pulse Rate 67 05/06/24 07:25 Respiratory Rate 16 05/06/24 07:25 Blood Press
[2024-05-06] MEDS: predniSONE 20 MG TABLET 40 MG PO (08:06)
[2024-05-06] MEDS: ACETAMINOPHEN 500 MG TABLET 1000 MG PO (08:06)
[2024-05-06] MEDS: KETOROLAC 30 MG/ML VIAL (*BKC) IM (08:07)
[2024-05-06 09:02] VITALS: BP 152/87; PULSE 87; RESP 19; TEMP 36.7; O2SAT 98
== END 2024-05-06 09:03 | disposition home or self-care (01) ==
LOC: ANHED 08:10
PROVIDERS: Emergency Provider Emergency Medicine; PCP Family Medicine
DX: M25.531 Pain in right wrist (principal); I12.9 Hypertensive chronic kidney disease with stage 1 through stage 4 chronic kidney disease, or unspecified chronic kidney disease; N18.30 Chronic kidney disease, stage 3 unspecified; E78.5 Hyperlipidemia, unspecified; M10.9 Gout, unspecified; R73.03 Prediabetes; E55.9 Vitamin D deficiency, unspecified; Z86.73 Personal history of transient ischemic attack (TIA), and cerebral infarction without residual deficits; Z87.891 Personal history of nicotine dependence; Z79.82 Long term (current) use of aspirin
CPT/HCPCS: 73110; 96372; 99283; A9270; J1885; J7512

== ENCOUNTER 2024-07-31 00:29 | Observation (INO) | payer MEDICARE, SELFPAY ==
[2024-07-31] VITALS (11 sets, daily range): BP systolic 113–150; BP diastolic 60–97; PULSE 64–86; RESP 14–20; TEMP 36.4–36.6; O2SAT 96–100; BMI 32.9
--- NOTE | ~2024-07-31 | XR_ITS ---
Clinical Indication: Chest pain PA and lateral views of the chest: Comparison: 10/27/2017 Findings: The lungs are clear, without evidence of focal consolidation or pleural effusion. Cardiome diastinal silhouette is within normal limits. Bones and soft tissues are unremarkable. Impression: Normal chest. Reviewed, dictated and finalized at location . ER SORTER MACHINE Impression: Normal chest.
--- NOTE | 2024-07-31 00:38 | ECG_ITS ---
Test Date: 2024-07-31 00:40:11 Measurements Intervals [place] Rate: 70 P: 27 FL: 143 QRS: -21 QRSD: 104 T: 172 QT: 414 QTc: 449 Interpretive Statements SINUS RHYTHM POSSIBLE LEFT ATRIAL ENLARGEMENT [-0.1mV P WAVE IN V1/V2] BORDERLINE LEFT AXIS DEVIATION [QRS AXIS < -20] LEFT VENTRICULAR HYPERTROPHY AND ST-T CHANGE [VOLTAGE CRITERIA PLUS ST/T ABNORMALITY] No previous ECG available for comparison Electronically Signed On 07-31-2024 14:24:16 TECHNICAL OPERATOR by Brendon Hoyt M.D.
--- NOTE | 2024-07-31 00:42 | ED.CHESTPAIN ---
HPI - Chest Pain General Chief Complaint: Chest Pain Stated Complaint: chest pain Time Seen by Provider: 07/31/24 00:37 Source: patient Mode of arrival: ambulatory Limitations: no limitations History of Present Illness HPI narrative: This is a 69-year-old male with PMH of CKD, CVA, HTN, cigarette smoking who presents to the ED for chief complaint of chest pain over the past 1-2 days. Reports it has been in the central chest but has been intermittently radiating into the left chest/left arm. Patient describes the pain as a pressure/heaviness. Reports that in the 70s he had a ?minor heart attack but has never had coronary stents or CABG. Reports some nausea but no vomiting. Denies lightheadedness, syncope, shortness of breath, cough, fevers, chills, abdominal pain, back pain. Denies numbness or weakness. Patient also reports that he had 2 different CVAs in 2019. Related Data Home Medications ?Medication ?Instructions ?Recorded ?Confirmed ?Last Taken ?Type aspirin 81 mg tablet,delayed 81 mg PO DAILY 12/24/20 04/30/24 06/15/21 09:00 History release cholecalciferol (vitamin D3) 125 125 mcg PO DAILY 04/24/24 04/24/24 Unknown History mcg (5,000 unit) capsule Allergies Allergy/AdvReac Type Severity Reaction Status Date / Time No Known Allergies Allergy Verified 05/06/24 07:21 Review of Systems Review of Systems: All systems as dictated in HPI [facility] Past Medical History Medical History (Updated 07/31/24 @ 03:51 by Cristobal Garcia PA-C) Depression Hidradenitis suppurativa BPH associated with nocturia Prediabetes Vitamin D deficiency Cognitive impairment Inguinal hernia without obstruction or gangrene Gout Rotator cuff tendonitis Arthritis Memory loss Erectile dysfunction Chronic right shoulder pain CKD (chronic kidney disease) stage 3, GFR 30-59 ml/min Due to hypertension with associated secondary hyperparathyroidism Headache, migraine Dyslipidemia Essential hypertension History of CVA with residual deficit Imaging in 2017 demonstrated evidence of old stroke and patient 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 06-16-21 History of shoulder surgery (~2016) left shoulder History of tooth extraction Family History Family History Sibling Seizure disorder Father , age 80 Cerebrovascular accident Grandparent Pulmonary disorder Grandparent History of blood clot in brain Grandparent , age 91 Cerebrovascular accident Social History Social History Smoking packs per day: 0.75 Smoking cigarettes per day: 15.0 Years smoked: 45 Smoking pack-years: 33.75 Smoking status: Former smoker Tobacco type: e-cigarettes/vaping Second hand tobacco smoke exposure: No Smoking end date: 08/14/23 Alcohol intake: current Drinks per week: 2 Alcohol use details: Socially Substance use: never Substance use type: does not use Do You Feel Safe in your Home?: Yes Lack of Transportation: No Lack of Food: Never True Current Housing: Decline to Answer Concerned About Future Housing: Decline to Answer Difficulty Paying Gas/Electric Bills: Decline to Answer Difficulty Paying for Meds: Decline to Answer Currently Unemployed: Decline to Answer Education: Decline to Answer Difficulty w/ Childcare or Family Care: Decline to Answer Living arrangements: with family Additional living arrangements comments: lives with stepdaughter Occupation/Education: retired Gender identity (if verbalized by the patient): Male Sexual Orientation (if Verbalized by the Patient): Straight or Heterosexual Spiritual care concerns: No Agree to blood products: Yes Exam Narrative: GENERAL: Well-appearing, well-nourished, and in no acute distress. HEAD: Normocephalic, atraumatic. EYES: PERRLA and EOMI. ENT: Nares clear, no rhinorrhea or epistaxis. Mucous membranes moist. Oropharynx without tonsillar hypertrophy exudate or other lesions. NECK: Supple. No adenopathy or masses. CHEST: No respiratory distress. Clear to auscultation. No wheezes rales or rhonchi HEART: Regular rate and rhythm. No murmur heard. Normal peripheral pulses. ABDOMEN: Soft, nontender, nondistended, normal active bowel sounds. MSK: Normal range of motion. No edema. SKIN: Warm, dry, no rash. NEURO: Alert and oriented x4. No focal deficits. PSYCH: Normal mood and affect. Course Reevaluation(s) Reevaluation #1: Feeling improved after morphine. He did not have any improvement with nitro x3. He does still report a little pressure/heaviness in the central chest. Date: 07/31/24 Time: 02:43 Reevaluation #2: Pain is now more significantly improved after the GI cocktail was given. Date: 07/31/24 Time: 03:46 Vital Signs Vital signs: Vital Signs Temperature 98 F 07/31/24 00:36 Pulse Rate 73 07/31/24 00:36 Respiratory Rate 20 07/31/24 00:36 Blood Pressure 144/85 H 07/31/24 00:36 Pulse Oximetry 98 07/31/24 00:36 Oxygen Delivery Room Air 07/31/24 00:36 Temperature 98 F 07/31/24 00:36 Pulse Rate 73 07/31/24 00:36 Respiratory Rate 20 07/31/24 00:36 Blood Pressure 144/85 H 07/31/24 00:36 Pulse Oximetry 100 07/31/24 00:51 Oxygen Delivery Room Air 07/31/24 00:51 MDM - Chest Pain MDM Narrative Medical decision making narrative: This is a 69-year-old male who presents to the ED for chief complaint of chest pain x 1-2 days. Vitals are normal. Exam is benign overall. EKG does show evidence of diffuse T-wave inversions, however this does appear present and actually appears worse on previous ECG in 2019. Lab work shows normal CBC. CMP shows elevated creatinine of 1.70 but consistent previous measures. BUN stable at 20. BNP negative. Initial troponin negative. D-dimer negative. Chest x-ray on preliminary read shows no acute findings. Heart score is 6. He had no relief with nitro x3. Moderate relief with morphine. He continued to have moderate relief with the GI cocktail. Unclear if this is more GERD related or due to a potential unstable angina. Spoke with medicine, Dr. Crandall will admit the patient to IMU for chest pain with elevated heart score. Lab Data 07/31/24 00:44 07/31/24 00:44 Labs: Lab Results 07/31/24 07/31/24 Range/Units 00:44 00:44 WBC 6.4 (4.5-10.0) K/mm3 RBC 4.71 (4.6-6.20) M/mm3 Hgb 13.3 L (14.0-18.0) g/dL Hct 42.0 (42.0-52.0) % MCV 89.2 (80-100) fl MCH 28.2 (26-34) pg MCHC 31.7 L (32-36) g/dl RDW 12.9 (11.5-14.5) % Plt Count 238 (150-375) k/mm3 MPV 9.6 (7.4-10.4) fl Immature Gran % (Auto) 0.3 (0-0.5) % Neut % (Auto) 55.1 (45.5-73.1) % Lymph % (Auto) 32.8 (18.3-44.2) % [place] % (Auto) 7.6 (2.6-8.5) % Eos % (Auto) 3.6 (0-4.4) % Baso % (Auto) 0.6 (0.2-1.2) % Lymph # (Auto) 2.11 (0.9-3.2) K/mm3 [place] # (Auto) 0.5 (0.1-0.6) K/mm3 Eos # (Auto) 0.2 (0-0.3) K/mm3 Baso # (Auto) 0.0 (0.0-0.1) K/mm3 Abs Immat Gran (auto) 0.02 (0.00-0.031) K/mm3 Absolute Neuts (auto) 3.6 (1.3-6.7) K/mm3 Absolute Nucleated RBC 0.000 (0.0-0.012) K/mm3 Nucleated RBC % 0.0 (0.0-0.2) % PT 13.9 (11.1-14.7) Seconds INR 1.0 APTT 26.0 (22.3-36.8) Seconds D-Dimer < 0.27 Cancelled (<0.48) ug/mL Sodium 140 (137-145) mmol/L Potassium 4.1 (3.4-5.0) mmol/L Chloride 109 H (98-107) mmol/L Carbon Dioxide 25 (22-30) mmol/L Anion Gap 6 (4-12) mmol/L BUN 20 D (9-20) mg/dL Creatinine 1.70 H (0.7-1.3) mg/dL Estim Creat Clear Calc 35 ml/min Estimated GFR 49 L (59 - ) Glucose 131 H (65-110) mg/dL Calcium 9.0 (8.4-10.2) mg/dL Total Bilirubin 0.4 (0.2-1.3) mg/dL AST 27 (17-59) U/L ALT 29 (6-50) U/L Alkaline Phosphatase 93 (38-126) U/L Troponin I < 0.012 (0.000-0.034) ng/mL NT-Pro-B Natriuret Pep 79 (19.9-100) pg/mL Total Protein 8.0 (6.3-8.2) g/dL Albumin 4.1 (3.5-5.1) g/dL Lipase 72 (23-300) U/L ECG Data EKG #1: ECG completion date: 07/31/24 ECG completion time: 00:40 Prior ECG tracings: available for review Interpretation: Sinus rhythm Rate 70 Normal QRS Diffuse T-wave inversions. These appear relatively unchanged from previous ECG in 2020. Minimal ST depression today in lateral leads, there is noticeably more ST depression in ECG 2020 No STEMI Discharge Plan Discharge Clinical Impression: Chest pain Patient Disposition: Still a Patient Condition: Stable Patient Language: Kiswahili Prescriptions: No Action lisinopril 40 mg tablet 40 mg PO DAILY Qty: 90 3RF escitalopram oxalate [Lexapro] 10 mg tablet 10 mg PO DAILY Qty: 30 0RF donepezil [Aricept] 5 mg tablet 5 mg PO QHS Qty: 30 6RF aspirin 81 mg tablet,delayed release (DR/EC) 81 mg PO DAILY amlodipine 10 mg tablet 10 mg PO DAILY Qty: 90 1RF cholecalciferol (vitamin D3) 125 mcg (5,000 unit) capsule 125 mcg PO DAILY ibuprofen 800 mg tablet 800 mg PO TID PRN (Reason: pain) 7 Days Qty: 21 0RF acetaminophen 500 mg tablet 1,000 mg PO TID PRN (Reason: deidra) 7 Days Qty: 42 0RF prednisone 20 mg tablet 20 mg PO DAILY Qty: 15 0RF Rx Instructions: Take 2 pills (40mg) for 5 days, then 1 pill (20mg) for 5 days. tadalafil [Cialis] 20 mg tablet 20 mg PO DAILY PRN (Reason: sexual activity) Qty: 30 0RF Rx Instructions: administer approximately 30min before sexual activity; do not use more than 1 dose per 24hrs atorvastatin 40 mg tablet 40 mg PO DAILY Qty: 90 2RF Follow-up/Referrals: Christine Anguiano MD [Primary Care Provider] - Quality HEART score for chest pain patients History: moderately suspicious ECG: non specific repolarization disturbance/LBTB/PM Age: > or = to 65 years Risk factors: > or = to 3 risk factors of atherosclerotic disease Troponin: < or = to 1x normal limit Heart score: 6
[2024-07-31 00:53] LABS: Basophils Percent Auto 0.6 % (0.2-1.2); Eosinophils Absolute Auto 0.2 K/mm3 (0-0.3); Eosinophils Percent Auto 3.6 % (0-4.4); Hemoglobin 13.3 g/dL (14.0-18.0); Immature Granulocyte Absolute 0.02 K/mm3 (0.00-0.031); Immature Granulocyte Percent A 0.3 % (0-0.5); Lymphocytes Absolute Auto 2.11 K/mm3 (0.9-3.2); Lymphocytes Percent Auto 32.8 % (18.3-44.2); Mean Corpuscular HGB Conc 31.7 g/dl (32-36); Mean Corpuscular Hemoglobin 28.2 pg (26-34); Mean Corpuscular Volume 89.2 fl (80-100); Mean Platelet Volume 9.6 fl (7.4-10.4); Monocytes Absolute Auto 0.5 K/mm3 (0.1-0.6); Monocytes Percent Auto 7.6 % (2.6-8.5); Neutrophils Absolute Auto 3.6 K/mm3 (1.3-6.7); Neutrophils Percent Auto 55.1 % (45.5-73.1); Platelet Count Result 238 k/mm3 (150-375); Red Blood Count 4.71 M/mm3 (4.6-6.20); Red Cell Distribution Width 12.9 % (11.5-14.5); White Blood Count 6.4 K/mm3 (4.5-10.0)
[2024-07-31] MEDS: ASPIRIN 81 MG CHEWABLE TABLET 324 MG PO (01:00)
[2024-07-31 01:08] LABS: Alanine Aminotransferase 29 U/L (6-50); Albumin Level 4.1 g/dL (3.5-5.1); Alkaline Phosphatase 93 U/L (38-126); Anion Gap 6 mmol/L (4-12); Aspartate Amino Transferase 27 U/L (17-59); Bilirubin,Total 0.4 mg/dL (0.2-1.3); Blood Urea Nitrogen 20 mg/dL (9-20); Carbon Dioxide 25 mmol/L (22-30); Chloride 109 mmol/L (98-107); Estimated CRCL calculation 35 ml/min; Estimated Glomerular Filt Rate 49; Glucose 131 mg/dL (65-110); Lipase 72 U/L (23-300); Potassium 4.1 mmol/L (3.4-5.0); Sodium 140 mmol/L (137-145)
[2024-07-31 01:11] LABS: NT Pro B Type Natriuretic Pept 79 pg/mL (19.9-100); Prothrombin Time 13.9 Seconds (11.1-14.7)
[2024-07-31 01:15] LABS: D Dimer < 0.27 ug/mL (<0.48)
--- NOTE | 2024-07-31 01:23 | PC.NURSE ---
010 1st nitroglycerin tablet given, cp still 05/23 010, 2nd nitroglycerin tablet given, cp still 05/23 011, 3rd nitroglycerin tablet given, cp still 05/23
[2024-07-31] MEDS: MORPHINE SULFATE (*CRX) 4 MG/ML INJ IV PUSH (01:54)
[2024-07-31 02:25] LABS: Troponin I < 0.012 ng/mL (0.000-0.034)
--- NOTE | 2024-07-31 03:33 | ECG_ITS ---
Test Date: 2024-07-31 03:36:44 Measurements Intervals [place] Rate: 67 P: 32 [place]: 141 QRS: -11 QRSD: 89 T: 182 QT: 441 QTc: 467 Interpretive Statements SINUS RHYTHM LEFT VENTRICULAR HYPERTROPHY AND ST-T CHANGE [VOLTAGE CRITERIA PLUS ST/T ABNORMALITY] Compared to ECG 07/31/2024 00:40:11 No significant changes Electronically Signed On 07-31-2024 14:24:36 MATERNITY NURSE by Brendon Hoyt M.D.
--- NOTE | 2024-07-31 03:33 | PM.IMHP ---
H&P: HPI History of Present Illness Date/Time: 07/31/24 03:33 Chief Complaint: Chest pain Narrative: 69-year-old male with past medical history of obesity, multiple CVAs, hypertensive nephropathy resulting in chronic kidney disease stage 3, prediabetes, dyslipidemia, continued tobacco use and cognitive impairment in difficulties with communication due to prior stroke who presents to the ER with chest pain just left to the sternum 10/10 in intensity. Patient received nitro with no significant improvement in symptoms. He received a dose of morphine with some mild improvement down to an 8/10 in intensity. He had the most improvement after receiving a GI cocktail with pain down to a 4-5/10 in intensity. Patient's initial troponin was negative in repeat troponin is pending. Initial EKG did not demonstrate any acute ischemic changes. Patient did have a exercise stress test in 2018 that was negative for evidence of ischemia. The patient reports that he was told the 1970s or 1980s that he may have had a minor MA. He has never had a cardiac catheterization. On review of prior abdominal imaging patient does have evidence of a small sliding hiatal hernia and BPH. He does report that he recently had exposure to cold air when he went up to [place] for a . At that time he began having increased coughing. With the coughing he did seem to have some more left-sided chest pain. The pain seemed to be worse with position changes. Initially the pain was worse with deep breathing. The pain was aching in nature and seemed to move around the localized area of his left chest up to his left shoulder. The pain did not radiate down into his arm. He did not have any associated nausea, diaphoresis or palpitations. He reports other when the pain 1st started on the he took some bhda-mci-cuwvkfc stomach meds and 2 full-dose aspirins. He is unsure if the fpsv-kga-jabvuen medications Prilosec or Pepcid but and did seem to have improvement in the symptoms within 20-30 minute and they resolved. He had recurrence of symptoms last evening after he had drink some gin. And this time the symptoms seem to be worse with movement and position changes. He reports that initially the pain was reproducible to palpation of his left lower sternal border. He reports that his pain is still present but is a 3/10 in intensity. The patient feels that his chest pain is due to his coughing. Patient was evaluated by Neurology in February of 2024 as outpatient visit due to memory loss. He was difficult to determine if patient had underlying mild cognitive impairment versus some component of possible mild depression. Patient was started on Aricept and Lexapro at that time. Patient is alert and oriented times for the time my evaluation. Review of Systems Review of Systems: 12 systems were reviewed with pertinent positives and negatives per HPI. Except as documented in the HPI, all other systems were reviewed and are negative. [facility] Past Medical History Medical History Depression Hidradenitis suppurativa BPH associated with nocturia Prediabetes Vitamin D deficiency Cognitive impairment Inguinal hernia without obstruction or gangrene Gout Rotator cuff tendonitis Arthritis Memory loss Erectile dysfunction Chronic right shoulder pain CKD (chronic kidney disease) stage 3, GFR 30-59 ml/min Due to hypertension with associated secondary hyperparathyroidism Headache, migraine Dyslipidemia Essential hypertension History of CVA with residual deficit Imaging in 2017 demonstrated evidence of old stroke and patient had acute left posterior frontal mora radiata infarct 10/2017 Surgical History Surgical History Hx of left inguinal hernia repair Laparoscopic left inguinal repair with mesh Mayelin miliant. 06-16-21 History of shoulder surgery (~2015) left shoulder History of tooth extraction Family History Family History Sibling Seizure disorder Father , age 80 Cerebrovascular accident Grandparent Pulmonary disorder Grandparent History of blood clot in brain Grandparent , age 91 Cerebrovascular accident Social History Social History (Updated 07/31/24 @ 06:03 by Yani Crandall DO) Social History: Patient lives with his of 22 years. He has 3 biologic children. He started smoking at the age of 21. He smoked between 0.5-1 pack of cigarettes per day on and off since then. He had quit smoking all together for over a year but started smoking a couple of cigarettes a day recently. He drinks 2 shots of hard liquor a day on average. He denies illicit substance use. Code status: Full code Surrogate decision maker: Smoking packs per day: 1 Smoking cigarettes per day: 20.0 Years smoked: 15 Smoking pack-years: 15.00 Smoking status: Current every day smoker Second hand tobacco smoke exposure: No Additional smoking assessment comments: patient currently smokes 1-2 cigarettes a day Alcohol intake: current Drinks per week: 2 Alcohol use details: Socially Substance use: never Substance use type: does not use Do You Feel Safe in your Home?: Yes Lack of Transportation: No Lack of Food: Never True Current Housing: Decline to Answer Concerned About Future Housing: Decline to Answer Difficulty Paying Gas/Electric Bills: Decline to Answer Difficulty Paying for Meds: Decline to Answer Currently Unemployed: Decline to Answer Education: Decline to Answer Difficulty w/ Childcare or Family Care: Decline to Answer Living arrangements: with family Additional living arrangements comments: lives with stepdaughter Occupation/Education: retired Gender identity (if verbalized by the patient): Male Sexual Orientation (if Verbalized by the Patient): Straight or Heterosexual Spiritual care concerns: No Agree to blood products: Yes Meds Home Medications and Allergies Home Medications ?Medication ?Instructions ?Recorded ?Confirmed ?Type aspirin 81 mg tablet,delayed 81 mg PO DAILY 12/24/20 07/31/24 History release lisinopril 40 mg tablet 40 mg PO DAILY #90 tabs 10/25/23 07/31/24 Rx donepezil 5 mg tablet (Aricept) 5 mg PO QHS #30 tabs 02/28/24 07/31/24 Rx escitalopram oxalate 10 mg tablet 10 mg PO DAILY #30 tabs 02/28/24 07/31/24 Rx (Lexapro) tadalafil 20 mg tablet (Cialis) 20 mg PO DAILY PRN sexual activity 03/19/24 07/31/24 Rx #30 tabs cholecalciferol (vitamin D3) 125 125 mcg PO DAILY 04/24/24 07/31/24 History mcg (5,000 unit) capsule acetaminophen 500 mg tablet 1,000 mg (2 x 500 mg) PO TID PRN 05/06/24 07/31/24 Rx deidra 7 days #42 tabs ibuprofen 800 mg tablet 800 mg PO TID PRN pain 7 days #21 05/06/24 07/31/24 Rx tabs atorvastatin 40 mg tablet 40 mg PO DAILY #90 tabs 06/12/24 07/31/24 Rx amlodipine 5 mg tablet 5 mg PO DAILY 07/31/24 07/31/24 History Allergies Allergy/AdvReac Type Severity Reaction Status Date / Time No Known Allergies Allergy Verified 07/31/24 04:28 Vital Signs Vital Signs - 24 hr 07/31/24 00:36 07/31/24 00:51 07/31/24 02:52 Temperature 98 F Pulse Rate 73 69 Respiratory Rate 20 14 Blood Pressure 144/85 H 119/60 Pulse Oximetry 98 100 98 Oxygen Delivery Room Air Room Air Exam Narrative: Weight 83.5 kg BMI 32.6 Const: Other: No acute distress, obese, appears stated age HENMT: Other: Mucous membranes are moist, no oral pharyngeal erythema, fair dentition, crowded posterior oropharynx Eyes: Other: Pupils are equal and reactive, no scleral icterus, no conjunctival pallor Neck: Other: Large neck circumference, no JVD Chest: Other: Reproducible chest pain to the left lower sternal border worse with twisting movements Resp: Other: Decreased breath sounds at the bases, no increased work of breathing Cardio: Other: Regular rate, regular rhythm, 2+ bilateral radial pedal pulses, no JVD GI: Other: Obese, soft, nontender, positive bowel sound Skin: Other: No jaundice, no pallor Neuro: Other: Alert oriented x4, speech is clear, no obvious facial asymmetry, extraocular movements intact, some slower movements and problems with fine motor coordination of the right upper extremity, sensation intact in all extremities Extrem: Other: No clubbing, cyanosis or edema, no foot wounds Psych: Other: Appropriate mood and affect, pleasant and cooperative, judgment and insight intact H&P: Results Labs Labs: Laboratory Tests 07/31/24 00:44 07/31/24 00:44 07/31/24 07/31/24 07/31/24 00:44 00:44 03:34 WBC 6.4 RBC 4.71 Hgb 13.3 L Hct 42.0 MCV 89.2 MCH 28.2 MCHC 31.7 L RDW 12.9 Plt Count 238 MPV 9.6 Immature Gran % (Auto) 0.3 Neut % (Auto) 55.1 Lymph % (Auto) 32.8 [place] % (Auto) 7.6 Eos % (Auto) 3.6 Baso % (Auto) 0.6 Lymph # (Auto) 2.11 [place] # (Auto) 0.5 Eos # (Auto) 0.2 Baso # (Auto) 0.0 Abs Immat Gran (auto) 0.02 Absolute Neuts (auto) 3.6 Absolute Nucleated RBC 0.000 Nucleated RBC % 0.0 PT 13.9 INR 1.0 APTT 26.0 D-Dimer < 0.27 Cancelled Sodium 140 Potassium 4.1 Chloride 109 H Carbon Dioxide 25 Anion Gap 6 BUN 20 D Creatinine 1.70 H Estim Creat Clear Calc 35 Estimated GFR 49 L Glucose 131 H Calcium 9.0 Total Bilirubin 0.4 AST 27 ALT 29 Alkaline Phosphatase 93 Troponin I < 0.012 Pending NT-Pro-B Natriuret Pep 79 Total Protein 8.0 Albumin 4.1 Lipase 72 All imaging and EKGs personally reviewed and interpreted. And unless stated otherwise agree with radiologic and cardiology interpretation. Assessment and Plan Assessment and plan (1) Atypical chest pain: Code(s): R07.89 - Other chest pain Status: Acute (2) Tobacco abuse: Code(s): Z72.0 - Tobacco use Status: Acute (3) Hiatal hernia: Code(s): K44.9 - Diaphragmatic hernia without obstruction or gangrene Status: Acute (4) Essential hypertension: Code(s): I10 - Essential (primary) hypertension Status: Acute (5) CKD (chronic kidney disease) stage 3, GFR 30-59 ml/min: Qualifiers: Chronic kidney disease stage 3 subtype: stage 3a (GFR 45-59) Qualified Code(s): N18.31 - Chronic kidney disease, stage 3a Code(s): N18.30 - Chronic kidney disease, stage 3 unspecified Status: Acute Plan Patient has atypical chest pain but was admitted for cardiac rule out due to multiple risk factors and elevated heart score of 5-6. Patient reports history of prior heart attack identified on EKG in the 1980s but has had negative stress test in 2018. His chest pain currently seemed to be more musculoskeletal in nature with intermittent reproducibility with deep breathing and position changes. However he did have significant improvement in symptoms with GI cocktail. He does take lot of viyc-oxx-atscotv heartburn medications. He may have some underlying GERD. He has had 2- troponins and 2 EKGs without evidence of acute ischemia. If 3rd set of troponins and EKGs unchanged the patient could be discharged home with Protonix, plus or minus Carafate and Tylenol. He did receive 1 dose of ibuprofen 400 mg at the time my evaluation but I do not want to continue this long-term given his history chronic kidney disease. Patient been started on Protonix and Carafate at this time. He feels that is a combination of all the treatment factors that have improved his symptoms. He is aware that he needs to quit smoking. Given atypical nature of chest pain will hold off on ordering stress test at this time. Encouraged patient to follow-up with primary care physician and or Dr. Frederick who had seen him in the past. He is obese and has crowded posterior oropharynx but denies any daytime fatigue, sleepiness of or excessive snoring. He is not interested in a sleep study. Will continue patient's home 81 mg aspirin and antihypertensives and statin therapy. His blood pressures are within goal range. Patient has been admitted as observation status. Quality VTE Prophylaxis VTE prophylaxis: pharmacologic ordered (Lovenox 40 mg subQ daily.) Hospitalist [facility] Advance Care Plan I have confirmed that the patient's Advanced Care Plan is present, code status is documented, or surrogate decision maker is listed in patient medical record.: Yes Medication Reconciliation I have utilized all available resources to obtain, update and review the patients current medications (includes all prescriptions, OTC, herbals, cannabis, and nutritional supplements).: Yes
[2024-07-31] MEDS: BELLADONNA ALK/PHENOB ELIX 10 ML, MAG HYDROX/ALUMINUM HYD/SIMETH 30 ML, LIDOCAINE 2% VI... PO (03:38)
[2024-07-31 04:12] LABS: Troponin I < 0.012 ng/mL (0.000-0.034)
--- NOTE | 2024-07-31 05:35 | ADMGEN ---
This patient, Buzz Disla, was admitted to IMU Room 213-01. Patient/family oriented to hospital policies and general routines including ID bracelet, bed and alarms, visiting hours, pain management, procedures, bathroom and other care routines, personal items, smoking policy, room service/diet, and visiting hours. Information on how to activate the Rapid Response Team has been discussed. Patient/Family are encouraged to report perceived risks to care and to ask questions if they do not understand what they are told or what they should do.
[2024-07-31] MEDS: SUCRALFATE SUSP 100 MG/ML 10 ML UDC 1000 MG PO (05:37)
[2024-07-31] MEDS: IBUPROFEN 400 MG TABLET PO (05:44)
[2024-07-31 07:17] LABS: Troponin I < 0.012 ng/mL (0.000-0.034)
[2024-07-31] MEDS: ATORVASTATIN 40 MG TABLET PO (09:03)
[2024-07-31] MEDS: lisinopriL 20 MG TABLET 40 MG PO (09:03)
[2024-07-31] MEDS: amLODIPine BESYLATE 5 MG TABLET PO (09:04)
[2024-07-31] MEDS: ASPIRIN 81 MG ENTERIC TABLET PO (09:04)
[2024-07-31] MEDS: ESCITALOPRAM OXALATE 10 MG TABLET PO (09:04)
[2024-07-31] MEDS: CHOLECALCIFEROL 5,000 UNITS TABLET 5000 UNITS BY MOUTH (09:04)
[2024-07-31] MEDS: ENOXAPARIN 40 MG/0.4 ML SYRINGE SUB-Q (09:07)
[2024-07-31] MEDS: PANTOPRAZOLE SODIUM IV 40 MG VIAL IV PUSH (09:21)
--- NOTE | 2024-07-31 09:28 | P.PNIM_ITS ---
Progress Note: A&P Assessment and Plan (1) Atypical chest pain: Code(s): R07.89 - Other chest pain Status: Acute (2) Tobacco abuse: Code(s): Z72.0 - Tobacco use Status: Acute (3) Hiatal hernia: Code(s): K44.9 - Diaphragmatic hernia without obstruction or gangrene Status: Acute (4) Essential hypertension: Code(s): I10 - Essential (primary) hypertension Status: Acute (5) CKD (chronic kidney disease) stage 3, GFR 30-59 ml/min: Qualifiers: Chronic kidney disease stage 3 subtype: stage 3a (GFR 45-59) Qualified Code(s): N18.31 - Chronic kidney disease, stage 3a Code(s): N18.30 - Chronic kidney disease, stage 3 unspecified Status: Acute Plan Patient has atypical chest pain but was admitted for cardiac rule out due to multiple risk factors and elevated heart score of 5-6. Patient reports history of prior heart attack identified on EKG in the but has had negative stress test in 2018. His chest pain currently seemed to be more musculoskeletal in nature with intermittent reproducibility with deep breathing and position changes. However he did have significant improvement in symptoms with GI cocktail. He does take lot of ekxg-vdy-loaofoj heartburn medications. He may have some underlying GERD. He has had 2- troponins and 2 EKGs without evidence of acute ischemia. If 3rd set of troponins and EKGs unchanged the patient could be discharged home with Protonix, plus or minus Carafate and Tylenol. He did receive 1 dose of ibuprofen 400 mg at the time my evaluation but I do not want to continue this long-term given his history chronic kidney disease. Patient been started on Protonix and Carafate at this time. He feels that is a combination of all the treatment factors that have improved his symptoms. He is aware that he needs to quit smoking. Given atypical nature of chest pain will hold off on ordering stress test at this time. Encouraged patient to follow-up with primary care physician and or Dr. Frederick who had seen him in the past. Chest pain Patient reported history of heart attack based on the EKG in , but negative stress test on 2018 Initial physical examination upon arrival suggesting musculoskeletal pain Troponin x2 negative EKG shows sinus rhythm no specific ST or T-wave changes Patient is on aspirin 81 mg daily p.o. Lipitor 40 mg daily p.o. Follow-up lipid panel echocardiogram 1. Complete two-dimensional, color flow and Doppler transthoracic echocardiogram is performed. 2. Left ventricular chamber dimension is normal. 3. Left ventricular systolic function is normal, estimated at 60-65%. 4. There is moderate concentric increased left ventricular wall thickness. 5. The left ventricular diastolic function is grade I diastolic dysfunction. 6. E/e' 13 is mildly elevated. 7. Left atrial chamber dimension is moderately enlarged. 8. There is mild mitral valve regurgitation. 9. There is mild tricuspid valve regurgitation. 10. No pulmonary hypertension, estimated pulmonary arterial systolic pressure is 33 mmHg. 11. There is trace pulmonic regurgitation. Telemetry monitoring Consult facing end trimmer for evaluation treatment. Cardiology recommends to discharge patient and will see patient in office in 2 weeks GERD ? Patient has acid reflux, Patient is on Protonix and Carafate p.o. CKD stage 3 Elevated BUN creatinine 20/1.7 upon arrival in the ED Renal function on the baseline Avoid nephrotoxic medication Follow-up with primary care doctor in 1 week Essential hypertension patient is on amlodipine 5 mg daily p.o. lisinopril 40 mg daily p.o. Blood pressure is not controlled on target At hydrochlorothiazide 25 mg daily p.o., Subjective Date/time seen: 07/31/24 09:28 Interval history: I saw I saw examined patient today. Patient has acid reflux, and left chest wall reproduces chest pain, worse with deep breath and cough. Patient denies trauma, shortness for breath, fever, chills abdomen pain nausea vomiting. Patient is afebrile, blood pressure stable Exam Narrative: GENERAL: Pleasant, in no acute distress. Well-nourished. - EYES: EOMI. Anicteric. - HENT: Moist mucous membranes. - LUNGS: Clear to auscultation bilateral ly, no wheezing, rhonchi, or rales. - CARDIOVASCULAR: Regular rate and rhyth m. No murmur. No JVD. Left chest wall reproduces chest pain - ABDOMEN: Soft, non-tender and non-dist ended. No palpable masses. - EXTREMITIES: No edema. Peripheral puls es 2+. Non-tender. - NEUROLOGIC: No focal neurological defi cits. CN II-XII grossly intact. - PSYCHIATRIC: Awake, Alert and oriented x 3. Appropriate mood and affect. - SKIN: No rashes or lesions. Warm. - LYMPH: No cervical lymphadenopathy. Objective Data Vital Signs Vital Signs: Vital Signs - 24 hr 07/31/24 00:36 07/31/24 00:51 07/31/24 02:52 Temperature 98 F Pulse Rate 73 69 Respiratory Rate 20 14 Blood Pressure 144/85 H 119/60 Pulse Oximetry 98 100 98 Oxygen Delivery Room Air Room Air 07/31/24 04:17 07/31/24 04:55 07/31/24 06:00 Temperature 97.9 F Pulse Rate 70 72 81 Respiratory Rate 15 16 Blood Pressure 142/80 H 113/72 Pulse Oximetry 99 100 Oxygen Delivery 07/31/24 06:16 07/31/24 08:00 Temperature 97.6 F Pulse Rate 86 Respiratory Rate 16 Blood Pressure 150/97 H Pulse Oximetry 96 Oxygen Delivery Room Air Intake/Output Intake/Output: Intake & Output 07/28/24 07/29/24 07/30/24 07/31/24 23:59 23:59 23:59 23:59 Intake Total 240 Output Total 0 Balance 240 Meds/Results Medications: Active Medications Generic Name Dose Route Start Last Admin Trade Name Freq PRN Reason Stop Dose Admin Acetaminophen 1,000 mg 07/31/24 06:14 Acetaminophen 500 Mg Tablet PO TID PRN Pain 1-3 or fever Amlodipine Besylate 5 mg 07/31/24 09:00 07/31/24 09:04 Amlodipine Besylate 5 Mg Tablet PO 5 mg DAILY MIR Administration Aspirin 81 mg 07/31/24 09:00 07/31/24 09:04 Aspirin 81 Mg Enteric Tablet PO 81 mg DAILY MIR Administration Atorvastatin Calcium 40 mg 07/31/24 09:00 07/31/24 09:03 Atorvastatin 40 Mg Tablet PO 40 mg DAILY MIR Administration Donepezil HCl 5 mg 07/31/24 21:00 Donepezil Hcl 5 Mg Tablet PO QHS MIR Enoxaparin Sodium 40 mg 07/31/24 09:00 07/31/24 09:07 Enoxaparin 40 Mg/0.4 Ml Syringe SUB-Q 40 mg DAILY MIR Administration Escitalopram Oxalate 10 mg 07/31/24 09:00 07/31/24 09:04 Escitalopram Oxalate 10 Mg Tablet PO 10 mg DAILY MIR Administration Lisinopril 40 mg 07/31/24 09:00 07/31/24 09:03 Lisinopril 20 Mg Tablet PO 40 mg DAILY MIR Administration Morphine Sulfate 4 mg 07/31/24 03:48 Morphine Sulfate (*Crx) 4 Mg/Ml Inj IV PUSH Q4H PRN Pain Rated 7-10 Nitroglycerin 0.4 mg 07/31/24 00:56 Nitroglycerin Sl 0.4 Mg Tablet SUBLINGUAL Q5MIN PRN Chest Pain Ondansetron HCl 4 mg 07/31/24 03:48 Ondansetron Inj 4 Mg/2 Ml Vial IV PUSH Q4H PRN Nausea Pantoprazole Sodium 40 mg 07/31/24 09:00 07/31/24 09:21 Pantoprazole Sodium Iv 40 Mg Vial IV PUSH 40 mg Q12HR MIR Administration Sucralfate 1,000 mg 07/31/24 06:30 07/31/24 05:37 Sucralfate Susp 100 Mg/Ml 10 Ml Udc PO 1,000 mg ACHS MIR Administration Vitamin D 5,000 units 07/31/24 09:00 07/31/24 09:04 Cholecalciferol 5,000 Units Tablet BY MOUTH 5,000 units DAILY MIR Administration Radiology Results: ITS Impressions Chest X-Ray 07/31/24 06:59 Impression: Normal chest. Labs Labs: Laboratory Results - last 24 hr 07/31/24 07/31/24 07/31/24 00:44 00:44 03:34 WBC 6.4 RBC 4.71 Hgb 13.3 L Hct 42.0 MCV 89.2 MCH 28.2 MCHC 31.7 L RDW 12.9 Plt Count 238 MPV 9.6 Immature Gran % (Auto) 0.3 Neut % (Auto) 55.1 Lymph % (Auto) 32.8 [place] % (Auto) 7.6 Eos % (Auto) 3.6 Baso % (Auto) 0.6 Lymph # (Auto) 2.11 [place] # (Auto) 0.5 Eos # (Auto) 0.2 Baso # (Auto) 0.0 Abs Immat Gran (auto) 0.02 Absolute Neuts (auto) 3.6 Absolute Nucleated RBC 0.000 Nucleated RBC % 0.0 PT 13.9 INR 1.0 APTT 26.0 D-Dimer < 0.27 Cancelled Sodium 140 Potassium 4.1 Chloride 109 H Carbon Dioxide 25 Anion Gap 6 BUN 20 D Creatinine 1.70 H Estim Creat Clear Calc 35 Estimated GFR 49 L Glucose 131 H Calcium 9.0 Total Bilirubin 0.4 AST 27 ALT 29 Alkaline Phosphatase 93 Troponin I < 0.012 < 0.012 NT-Pro-B Natriuret Pep 79 Total Protein 8.0 Albumin 4.1 Lipase 72 07/31/24 06:41 WBC RBC Hgb Hct MCV MCH MCHC RDW Plt Count MPV Immature Gran % (Auto) Neut % (Auto) Lymph % (Auto) [place] % (Auto) Eos % (Auto) Baso % (Auto) Lymph # (Auto) [place] # (Auto) Eos # (Auto) Baso # (Auto) Abs Immat Gran (auto) Absolute Neuts (auto) Absolute Nucleated RBC Nucleated RBC % PT INR APTT D-Dimer Sodium Potassium Chloride Carbon Dioxide Anion Gap BUN Creatinine Estim Creat Clear Calc Estimated GFR Glucose Calcium Total Bilirubin AST ALT Alkaline Phosphatase Troponin I < 0.012 NT-Pro-B Natriuret Pep Total Protein Albumin Lipase
--- NOTE | 2024-07-31 09:36 | ECHO_ITS ---
Patient Info Name: Buzz Disla Age: 69 years : 1955 Gender: Male Ht: 63 in Wt: 185 lbs BSA: 1.96 m2 HR: 86 bpm BP: 150 / 97 mmHg Technical Quality: Fair Exam Date: 07/31/2024 10:28 AM Exam Location: Echo Lab Patient Status: Inpatient Admit Date: 07/31/2024 Staff Ordering Physician: Nenita Baugh MD Fire Prevention Engineer: Diane Gan RDCS Attending Provider: Yani Crandall DO Exam Type: CA echo doppler color flow Study Info Indications R07.9 - Chest pain, unspecified Complete two-dimensional, color flow and Doppler transthoracic echocardiogram is performed. Summary 1. Complete two-dimensional, color flow and Doppler transthoracic echocardiogram is performed. 2. Left ventricular chamber dimension is normal. 3. Left ventricular systolic function is normal, estimated at 60-65%. 4. There is moderate concentric increased left ventricular wall thickness. 5. The left ventricular diastolic function is grade I diastolic dysfunction. 6. E/e' 13 is mildly elevated. 7. Left atrial chamber dimension is moderately enlarged. 8. There is mild mitral valve regurgitation. 9. There is mild tricuspid valve regurgitation. 10. No pulmonary hypertension, estimated pulmonary arterial systolic pressure is 33 mmHg. 11. There is trace pulmonic regurgitation. Left Ventricle E/e' 13 is mildly elevated. Left ventricular chamber dimension is normal. Left ventricular systolic function is normal, estimated at 60-65%. There is moderate concentric increased left ventricular wall thickness. The left ventricular diastolic function is grade I diastolic dysfunction. Right Ventricle Right ventricular systolic function is normal and with normal TAPSE 1.9 cm. Right ventricular chamber dimension is normal. Left Atria Left atrial chamber dimension is moderately enlarged. Right Atria Right atrial chamber dimension is normal. Aortic Valve The aortic valve is trileaflet. There is no aortic valve stenosis. There is no aortic valve regurgitation. Pulmonic Valve There is trace pulmonic regurgitation. Mitral Valve There is no mitral valve stenosis. There is mild mitral valve regurgitation. Tricuspid Valve There is mild tricuspid valve regurgitation. No pulmonary hypertension, estimated pulmonary arterial systolic pressure is 33 mmHg. Pericardium/Pleural There is no pericardial effusion. Inferior Vena Cava Normal inferior vena cava with >50% collapse upon inspiration consistent with normal right atrial pressure, 5 mmHg. Aorta The aortic root size at the sinus of Valsalva is normal. Left Ventricular Outflow Tract Name Value Normal LVOT 2D LVOT Diameter 2.0 cm LVOT Doppler LVOT Peak Gradient 4 mmHg LVOT Mean Gradient 2 mmHg LVOT VTI 19 cm LVOT VTI/AV VTI Ratio 0.8 LVOT Stroke Volume 60 ml LVOT CO 3.9 l/min LVOT CI 2.0 l/min/m2 Pulmonic Valve Name Value Normal PV Doppler PV Peak Gradient 2 mmHg PV Regurgitation Doppler CT Peak End Diastolic Velocity 89 cm/s Mitral Valve Name Value Normal MV Doppler MV Decel Mifflin 429 cm/s2 MV PHT 58 ms MV Area (PHT) 3.8 cm2 4.0-5.0 MV Diastolic Function MV E Peak Velocity 86 cm/s MV A Peak Velocity 105 cm/s MV E/A 0.8 MV Decel Time 200 ms Tricuspid Valve Name Value Normal TV Regurgitation Doppler TR Peak Velocity 264 cm/s TR Peak Gradient 26 mmHg Estimated PAP/RSVP RA Pressure 5 mmHg <=5 PA Systolic Pressure 33 mmHg <36 RV Systolic Pressure 33 mmHg <36 Aorta Name Value Normal Ascending Aorta Ao Root Diameter (MM) 2.4 cm Ao Root Diam Index (MM) 1.2 cm/m2 Aortic Valve Name Value Normal AV Doppler AV Peak Velocity 130 cm/s AV Peak Gradient 7 mmHg AV Mean Gradient 3 mmHg AV VTI 25 cm AV Area (Cont Eq VTI) 2.4 cm2 >=3.0 AV Area (Cont Eq Ramiro) 2.4 cm2 AV Regurgitation 2D LVOT Area 3.1 cm2 Ventricles Name Value Normal LV Dimensions 2D/MM IVS Diastolic Thickness (2D) 1.2 cm 0.6-1.0 IVS Diastole Thickness (MM) 1.0 cm 0.6-1.0 LVID Diastole (2D) 5.2 cm 4.2-5.8 LVID Diastole (MM) 5.1 cm 4.2-5.8 LVIW Diastolic Thickness (2D) 1.2 cm 0.6-1.0 LVIW Diastolic Thickness (MM) 1.1 cm 0.6-1.0 LVID Systole (2D) 2.8 cm 2.5-4.0 LVID Systole (MM) 3.4 cm 2.5-4.0 LVOT Diameter 2.0 cm LV Mass (2D Cubed) 246.39 g 88.00-224.00 LV Mass Index (2D Cubed) 125 g/m2 49-115 Relative Wall Thickness (2D) 0.47 LV Mass (MM Cubed) 195.93 g 88.00-224.00 LV Mass Index (MM Cubed) 100 g/m2 49-115 Relative Wall Thickness (MM) 0.43 LV Fractional Shortening/Ejection Fraction 2D/MM LV Fractional Shortening (2D) 45 % 25-43 LV Fractional Shortening (MM) 34 % 25-43 LV EF (MM Teicholz) 62 % 52-72 LV EF (2D Teicholz) 76 % 52-72 LV Diastolic Volume (4C MOD) 39 ml LV EF (4C MOD) 51 % LV Diastolic Volume (2C MOD) 37 ml LV EF (2C MOD) 63 % LV Diastolic Volume (BP MOD) 39 ml 62-150 LV Diastolic Volume Index (BP MOD) 20 ml/m2 34-74 LV Systolic Volume (BP MOD) 16 ml 21-61 LV Systolic Volume Index (BP MOD) 8 ml/m2 11-31 LV EF (BP MOD) 59 % 52-72 LV Diastolic Length (4C) 7.4 cm LV Systolic Length (4C) 6.9 cm LV Stroke Volume (4C MOD) 20 ml Atria Name Value Normal LA Dimensions LA Dimension (MM) 4.0 cm 3.0-4.1 LA Volume (4C A-L) 75 ml LA Volume (BP A-L) 56 ml RA Dimensions RA Area (4C) 14.9 cm2 <=18.0 Report Signatures
[2024-07-31] MEDS: PERFLUTREN LIPID MICROSPHERES 1.5 ML VIAL DILUTED TO 10 ML TOTAL VOLUME IV PUSH (11:59)
--- NOTE | 2024-07-31 11:59 | IVDEFINITY ---
Prior to administration of IV Definity the patient was educated on the risks and benefits of the imaging enhancing agent including potential adverse side effects. The patient verbalized understanding. Allergies were verified. No exclusion criteria were identified and at least one of the following inclusion criteria were met: 1) physician request, 2) patient technically difficult to image (per the [place] [employer]chocardi[employer] guidelines of two or more segments not discernable within the apical view), or 3) questionable left ventricular function. ?
--- NOTE | 2024-07-31 13:02 | PM.CNCAR ---
Assessment and Plan Assessment and plan (1) Chest pain: Qualifiers: Chest pain type: unspecified Qualified Code(s): R07.9 - Chest pain, unspecified Code(s): R07.9 - Chest pain, unspecified Status: Acute Assessment and Plan: Noncardiac, reproducible by coughing and moving torso. Likely musculoskeletal. PR r/o by serial troponin and EKG. Unchanged T wave inversions in precordial leads since 2018 Check echo. If echo is OK may d/c home from cardiology standpoint and f/u with me in 2 weeks. (2) Essential hypertension: Code(s): I10 - Essential (primary) hypertension Status: Acute Assessment and Plan: Stable. (3) Dyslipidemia: Code(s): E78.5 - Hyperlipidemia, unspecified Status: Acute Assessment and Plan: On Atorvastatin. (4) Tobacco abuse: Code(s): Z72.0 - Tobacco use Status: Acute Assessment and Plan: Counseled regarding smoking cessation. History of Present Illness History of Present Illness Consult date/time: 07/31/24 13:02 Reason For Visit: chest pain Narrative: 69 yr old man presents to ER with chest pain. He has a history of hypertension, dyslipidemia, stroke, smoking, CKD stage III. Reports chest pain described as pressure on left side of chest started 4 days ago associated with a cough. Coughing and moving his torso recreates chest discomfort. He is limited at walking up to 2 blocks due to JIMENEZ. He smokes 3 cigarettes per day. Denies orthopnea, PND, edema, dizziness, palpitations. Review of Systems Review of Systems: All systems reviewed & are unremarkable except as noted in HPI and below Constitutional: Constitutional: Reports as per HPI, Denies chills and Denies fever(s) Cardiovascular: Cardiovascular: Reports as per HPI, Reports chest pain and Denies irregular heart rhythm Respiratory: Respiratory: Reports as per HPI and Reports dyspnea on exertion Gastrointestinal: Gastrointestinal: Reports as per HPI and Denies abdominal pain Genitourinary: Genitourinary: Reports as per HPI and Denies dysuria Musculoskeletal: Musculoskeletal: Reports as per HPI Neurologic: Reports as per HPI, Denies dizziness and Denies syncope [facility] Past Medical History Medical History Depression Hidradenitis suppurativa BPH associated with nocturia Prediabetes Vitamin D deficiency Cognitive impairment Inguinal hernia without obstruction or gangrene Gout Rotator cuff tendonitis Arthritis Memory loss Erectile dysfunction Chronic right shoulder pain CKD (chronic kidney disease) stage 3, GFR 30-59 ml/min Due to hypertension with associated secondary hyperparathyroidism Headache, migraine Dyslipidemia Essential hypertension History of CVA with residual deficit Imaging in 2018 demonstrated evidence of old stroke and patient 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 06-16-21 History of shoulder surgery (~2015) left shoulder History of tooth extraction Family History Family History Sibling Seizure disorder Father , age 80 Cerebrovascular accident Grandparent Pulmonary disorder Grandparent History of blood clot in brain Grandparent , age 91 Cerebrovascular accident Social History Social History (Updated 07/31/24 @ 06:03 by Yani Crandall DO) Social History: Patient lives with his of 22 years. He has 3 biologic children. He started smoking at the age of 21. He smoked between 0.5-1 pack of cigarettes per day on and off since then. He had quit smoking all together for over a year but started smoking a couple of cigarettes a day recently. He drinks 2 shots of hard liquor a day on average. He denies illicit substance use. Code status: Full code Surrogate decision maker: Smoking packs per day: 1 Smoking cigarettes per day: 20.0 Years smoked: 15 Smoking pack-years: 15.00 Smoking status: Current every day smoker Second hand tobacco smoke exposure: No Additional smoking assessment comments: patient currently smokes 1-2 cigarettes a day Alcohol intake: current Drinks per week: 2 Alcohol use details: Socially Substance use: never Substance use type: does not use Do You Feel Safe in your Home?: Yes Lack of Transportation: No Lack of Food: Never True Current Housing: Decline to Answer Concerned About Future Housing: Decline to Answer Difficulty Paying Gas/Electric Bills: Decline to Answer Difficulty Paying for Meds: Decline to Answer Currently Unemployed: Decline to Answer Education: Decline to Answer Difficulty w/ Childcare or Family Care: Decline to Answer Living arrangements: with family Additional living arrangements comments: lives with stepdaughter Occupation/Education: retired Gender identity (if verbalized by the patient): Male Sexual Orientation (if Verbalized by the Patient): Straight or Heterosexual Spiritual care concerns: No Agree to blood products: Yes Meds Home Medications and Allergies Home Medications ?Medication ?Instructions ?Recorded ?Confirmed ?Type aspirin 81 mg tablet,delayed 81 mg PO DAILY 12/24/20 07/31/24 History release lisinopril 40 mg tablet 40 mg PO DAILY #90 tabs 10/25/23 07/31/24 Rx donepezil 5 mg tablet (Aricept) 5 mg PO QHS #30 tabs 02/28/24 07/31/24 Rx escitalopram oxalate 10 mg tablet 10 mg PO DAILY #30 tabs 02/28/24 07/31/24 Rx (Lexapro) tadalafil 20 mg tablet (Cialis) 20 mg PO DAILY PRN sexual activity 03/19/24 07/31/24 Rx #30 tabs cholecalciferol (vitamin D3) 125 125 mcg PO DAILY 04/24/24 07/31/24 History mcg (5,000 unit) capsule acetaminophen 500 mg tablet 1,000 mg (2 x 500 mg) PO TID PRN 05/06/24 07/31/24 Rx deidra 7 days #42 tabs ibuprofen 800 mg tablet 800 mg PO TID PRN pain 7 days #21 05/06/24 07/31/24 Rx tabs atorvastatin 40 mg tablet 40 mg PO DAILY #90 tabs 06/12/24 07/31/24 Rx amlodipine 5 mg tablet 5 mg PO DAILY 07/31/24 07/31/24 History Allergies Allergy/AdvReac Type Severity Reaction Status Date / Time No Known Allergies Allergy Verified 07/31/24 04:28 Vital Signs Vital Signs - 24 hr 07/31/24 00:36 07/31/24 00:51 07/31/24 02:52 Temperature 98 F Pulse Rate 73 69 Respiratory Rate 20 14 Blood Pressure 144/85 H 119/60 Pulse Oximetry 98 100 98 Oxygen Delivery Room Air Room Air 07/31/24 04:17 07/31/24 04:55 07/31/24 06:00 Temperature 97.9 F Pulse Rate 70 72 81 Respiratory Rate 15 16 Blood Pressure 142/80 H 113/72 Pulse Oximetry 99 100 Oxygen Delivery 07/31/24 06:16 07/31/24 08:00 Temperature 97.6 F Pulse Rate 86 Respiratory Rate 16 Blood Pressure 150/97 H Pulse Oximetry 96 Oxygen Delivery Room Air Exam Const: General: cooperative, healthy appearing and comfortable Resp: Auscultation: clear to auscultation bilaterally, no crackles, no rales, no rhonchi and no wheezes Cardio: Rate: regular rate Rhythm: regular rhythm Heart sounds: no murmurs Peripheral pulses: dorsalis pedis present GI: GI Palp: No abdominal tenderness and Yes Soft to palpation Neuro: General: oriented to person, oriented to place and oriented to time Extrem: Right lower extremity: no edema Left lower extremity: no edema Results Labs and Meds 07/31/24 00:44 07/31/24 00:44 Lab results: Cardiac Enzymes 07/31/24 07/31/24 07/31/24 Range/Units 00:44 03:34 06:41 AST 27 (17-59) U/L Troponin I < 0.012 < 0.012 < 0.012 (0.000-0.034) ng/mL Coagulation 07/31/24 Range/Units 00:44 PT 13.9 (11.1-14.7) Seconds APTT 26.0 (22.3-36.8) Seconds CBC 07/31/24 Range/Units 00:44 WBC 6.4 (4.5-10.0) K/mm3 RBC 4.71 (4.6-6.20) M/mm3 Hgb 13.3 L (14.0-18.0) g/dL Hct 42.0 (42.0-52.0) % Plt Count 238 (150-375) k/mm3 Lymph # (Auto) 2.11 (0.9-3.2) K/mm3 [place] # (Auto) 0.5 (0.1-0.6) K/mm3 Eos # (Auto) 0.2 (0-0.3) K/mm3 Baso # (Auto) 0.0 (0.0-0.1) K/mm3 Comprehensive Metabolic Panel 07/31/24 Range/Units 00:44 Sodium 140 (137-145) mmol/L Potassium 4.1 (3.4-5.0) mmol/L Chloride 109 H (98-107) mmol/L Carbon Dioxide 25 (22-30) mmol/L BUN 20 D (9-20) mg/dL Creatinine 1.70 H (0.7-1.3) mg/dL Glucose 131 H (65-110) mg/dL Calcium 9.0 (8.4-10.2) mg/dL AST 27 (17-59) U/L ALT 29 (6-50) U/L Alkaline Phosphatase 93 (38-126) U/L Total Protein 8.0 (6.3-8.2) g/dL Albumin 4.1 (3.5-5.1) g/dL Intake and Output 07/30/24 07/31/24 07/31/24 23:59 07:59 15:59 Intake Total 240 Output Total 0 Balance 0 240 Intake: Oral 240 Output: Urine 0 Patient Weight 07/31/24 23:59 Weight 84.3 kg
--- NOTE | 2024-07-31 17:13 | PM.DS ---
DS: Admitting Diagnosis Discharge Date 07/31/24 Admitting Diagnosis (1) Atypical chest pain: Code(s): R07.89 - Other chest pain Status: Acute (2) Tobacco abuse: Code(s): Z72.0 - Tobacco use Status: Acute (3) Hiatal hernia: Code(s): K44.9 - Diaphragmatic hernia without obstruction or gangrene Status: Acute (4) Essential hypertension: Code(s): I10 - Essential (primary) hypertension Status: Acute (5) CKD (chronic kidney disease) stage 3, GFR 30-59 ml/min: Qualifiers: Chronic kidney disease stage 3 subtype: stage 3a (GFR 45-59) Qualified Code(s): N18.31 - Chronic kidney disease, stage 3a Code(s): N18.30 - Chronic kidney disease, stage 3 unspecified Status: Acute DS: Discharge Diagnosis Discharge Diagnosis (1) Atypical chest pain: Code(s): R07.89 - Other chest pain Status: Acute (2) Tobacco abuse: Code(s): Z72.0 - Tobacco use Status: Acute (3) Hiatal hernia: Code(s): K44.9 - Diaphragmatic hernia without obstruction or gangrene Status: Acute (4) Essential hypertension: Code(s): I10 - Essential (primary) hypertension Status: Acute (5) CKD (chronic kidney disease) stage 3, GFR 30-59 ml/min: Qualifiers: Chronic kidney disease stage 3 subtype: stage 3a (GFR 45-59) Qualified Code(s): N18.31 - Chronic kidney disease, stage 3a Code(s): N18.30 - Chronic kidney disease, stage 3 unspecified Status: Acute DS: Summary Hospital Course Hospital Course: Per Dr. Crandall, Patient has atypical chest pain but was admitted for cardiac rule out due to multiple risk factors and elevated heart score of 5-6. Patient reports history of prior heart attack identified on EKG in the 1980s but has had negative stress test in 2018. His chest pain currently seemed to be more musculoskeletal in nature with intermittent reproducibility with deep breathing and position changes. However he did have significant improvement in symptoms with GI cocktail. He does take lot of [id number] heartburn medications. He may have some underlying GERD. He has had 2- troponins and 2 EKGs without evidence of acute ischemia. If 3rd set of troponins and EKGs unchanged the patient could be discharged home with Protonix, plus or minus Carafate and Tylenol. He did receive 1 dose of ibuprofen 400 mg at the time my evaluation but I do not want to continue this long-term given his history chronic kidney disease. Patient been started on Protonix and Carafate at this time. He feels that is a combination of all the treatment factors that have improved his symptoms. He is aware that he needs to quit smoking. Given atypical nature of chest pain will hold off on ordering stress test at this time. Encouraged patient to follow-up with primary care physician and or Dr. Frederick who had seen him in the past. The following med issues have been addressed during hospitalization Chest pain Patient reported history of heart attack based on the EKG in , but negative stress test on 2017 Initial physical examination upon arrival suggesting musculoskeletal pain Troponin x2 negative EKG shows sinus rhythm no specific ST or T-wave changes Patient is on aspirin 81 mg daily p.o. Lipitor 40 mg daily p.o. Follow-up lipid panel echocardiogram 1. Complete two-dimensional, color flow and Doppler transthoracic echocardiogram is performed. 2. Left ventricular chamber dimension is normal. 3. Left ventricular systolic function is normal, estimated at 60-65%. 4. There is moderate concentric increased left ventricular wall thickness. 5. The left ventricular diastolic function is grade I diastolic dysfunction. 6. E/e' 13 is mildly elevated. 7. Left atrial chamber dimension is moderately enlarged. 8. There is mild mitral valve regurgitation. 9. There is mild tricuspid valve regurgitation. 10. No pulmonary hypertension, estimated pulmonary arterial systolic pressure is 33 mmHg. 11. There is trace pulmonic regurgitation. Telemetry monitoring Consult lining marker for evaluation treatment. Cardiology recommends to discharge patient and will see patient in office in 2 weeks GERD ? Patient has acid reflux, Patient is on Protonix and Carafate p.o. Continue Carafate 1 g a.c. and q.h.s., start omeprazole 20 mg daily p.o. CKD stage 3 Elevated BUN creatinine 20/1.7 upon arrival in the ED Renal function on the baseline Avoid nephrotoxic medication Discontinue ibuprofen Follow-up with primary care doctor in 1 week Essential hypertension patient is on amlodipine 5 mg daily p.o. lisinopril 40 mg daily p.o. Blood pressure is not controlled on target At hydrochlorothiazide 25 mg daily p.o., Time Spent with Patient Time attestation: Total time spent providing and/or coordinating discharge services: Exam Narrative: GENERAL: Pleasant, in no acute distress. Well-nourished. - EYES: EOMI. Anicteric. - HENT: Moist mucous membranes. - LUNGS: Clear to auscultation bilaterally, no wheezing, rhonchi, or rales. - CARDIOVASCULAR: Regular rate and rhythm. No murmur. No JVD. Left chest wall reproduces chest pain - ABDOMEN: Soft, non-tender and non-distended. No palpable masses. - EXTREMITIES: No edema. Peripheral pulses 2+. Non-tender. - NEUROLOGIC: No focal neurological deficits. CN II-XII grossly intact. - PSYCHIATRIC: Awake, Alert and oriented x 3. Appropriate mood and affect. - SKIN: No rashes or lesions. Warm. - LYMPH: No cervical lymphadenopathy. DS: Data Data Completed and Pending Labs on day of discharge: Labs from last 24 hours 07/31/24 07/31/24 07/31/24 06:41 03:34 00:44 WBC RBC Hgb Hct MCV MCH MCHC RDW Plt Count MPV Immature Gran % (Auto) Neut % (Auto) Lymph % (Auto) [place] % (Auto) Eos % (Auto) Baso % (Auto) Lymph # (Auto) [place] # (Auto) Eos # (Auto) Baso # (Auto) Abs Immat Gran (auto) Absolute Neuts (auto) Absolute Nucleated RBC Nucleated RBC % PT INR APTT D-Dimer Cancelled Sodium 140 Potassium 4.1 Chloride 109 H Carbon Dioxide 25 Anion Gap 6 BUN 20 D Creatinine 1.70 H Estim Creat Clear Calc 35 Estimated GFR 49 L Glucose 131 H Calcium 9.0 Total Bilirubin 0.4 AST 27 ALT 29 Alkaline Phosphatase 93 Troponin I < 0.012 < 0.012 < 0.012 NT-Pro-B Natriuret Pep 79 Total Protein 8.0 Albumin 4.1 Lipase 72 07/31/24 00:44 WBC 6.4 RBC 4.71 Hgb 13.3 L Hct 42.0 MCV 89.2 MCH 28.2 MCHC 31.7 L RDW 12.9 Plt Count 238 MPV 9.6 Immature Gran % (Auto) 0.3 Neut % (Auto) 55.1 Lymph % (Auto) 32.8 [place] % (Auto) 7.6 Eos % (Auto) 3.6 Baso % (Auto) 0.6 Lymph # (Auto) 2.11 [place] # (Auto) 0.5 Eos # (Auto) 0.2 Baso # (Auto) 0.0 Abs Immat Gran (auto) 0.02 Absolute Neuts (auto) 3.6 Absolute Nucleated RBC 0.000 Nucleated RBC % 0.0 PT 13.9 INR 1.0 APTT 26.0 D-Dimer < 0.27 Sodium Potassium Chloride Carbon Dioxide Anion Gap BUN Creatinine Estim Creat Clear Calc Estimated GFR Glucose Calcium Total Bilirubin AST ALT Alkaline Phosphatase Troponin I NT-Pro-B Natriuret Pep Total Protein Albumin Lipase Discharge Plan Discharge Attending physician on discharge: Nenita Baugh Consulting providers: Alvino Frederick Discharging Clinician: Nenita Baugh Anticipated Discharge Date/Time: 07/31/24 17:10 Patient Disposition: Home, Self-Care Activity: as tolerated Diet: heart healthy Discharge Instructions: Chest Pain Patient Instructions: Antibiotic Form, Enoxaparin (By injection), Chest Pain (GEN) Patient Language: Slovak Stand Alone Forms: General Discharge Information Follow-up/Referrals: Alvino Frederick DO [Physician] - (Patient needs see Cardiology at scheduled appointment) Christine Anguiano MD [Primary Care Provider] - (Patient needs to see primary care doctor in 1 week) Discharge Medications: New sucralfate 100 mg/mL Suspension 1,000 mg PO ACHS Qty: 90 0RF hydrochlorothiazide 25 mg tablet 25 mg PO DAILY Qty: 30 0RF omeprazole 20 mg capsule,delayed release(DR/EC) 20 mg PO DAILY Qty: 30 1RF Continued lisinopril 40 mg tablet 40 mg PO DAILY Qty: 90 3RF escitalopram oxalate [Lexapro] 10 mg tablet 10 mg PO DAILY Qty: 30 0RF donepezil [Aricept] 5 mg tablet 5 mg PO QHS Qty: 30 6RF aspirin 81 mg tablet,delayed release (DR/EC) 81 mg PO DAILY cholecalciferol (vitamin D3) 125 mcg (5,000 unit) capsule 125 mcg PO DAILY amlodipine 5 mg tablet 5 mg PO DAILY acetaminophen 500 mg tablet 1,000 mg PO TID PRN (Reason: deidra) 7 Days Qty: 42 0RF tadalafil [Cialis] 20 mg tablet 20 mg PO DAILY PRN (Reason: sexual activity) Qty: 30 0RF Rx Instructions: administer approximately 30min before sexual activity; do not use more than 1 dose per 24hrs atorvastatin 40 mg tablet 40 mg PO DAILY Qty: 90 2RF Discontinued ibuprofen 800 mg tablet 800 mg PO TID PRN (Reason: pain) 7 Days Qty: 21 0RF Date of admission: 07/31/24 03:48 Primary Care Provider: Christine Anguiano Admitting Provider: Yani Crandall Attending physician on admission: Yani Crandall Condition: Stable
== END 2024-07-31 18:09 | disposition home or self-care (01) ==
LOC: ANHED 03:51 → ANHIMU 05:27
PROVIDERS: Admitting Provider Internal Medicine; Emergency Provider Physician Assistant; PCP Family Medicine; Visit Provider Hospitalist
DX: R07.89 Other chest pain (principal); F17.210 Nicotine dependence, cigarettes, uncomplicated; K21.9 Gastro-esophageal reflux disease without esophagitis; K44.9 Diaphragmatic hernia without obstruction or gangrene; I12.9 Hypertensive chronic kidney disease with stage 1 through stage 4 chronic kidney disease, or unspecified chronic kidney disease; N18.31 Chronic kidney disease, stage 3a; N25.81 Secondary hyperparathyroidism of renal origin; I25.2 Old myocardial infarction; E78.5 Hyperlipidemia, unspecified; R73.03 Prediabetes; N40.1 Benign prostatic hyperplasia with lower urinary tract symptoms; R35.1 Nocturia; N52.9 Male erectile dysfunction, unspecified; E66.9 Obesity, unspecified; Z68.32 Body mass index [BMI] 32.0-32.9, adult; I69.318 Other symptoms and signs involving cognitive functions following cerebral infarction; G43.909 Migraine, unspecified, not intractable, without status migrainosus; M10.9 Gout, unspecified; L73.2 Hidradenitis suppurativa; M19.90 Unspecified osteoarthritis, unspecified site; E55.9 Vitamin D deficiency, unspecified; F32.A Depression, unspecified; Z79.82 Long term (current) use of aspirin; Z79.899 Other long term (current) drug therapy; Z98.890 Other specified postprocedural states
CPT/HCPCS: 36415; 71046; 80053; 83690; 83880; 84484; 85025; 85380; 85610; 85730; 93005; 93306; 96372; 96374; 96375; 96376; 99285; A9270; G0378; J1650; J2270; J2470; Q9957

== ENCOUNTER 2024-08-21 08:31 | Outpatient (CLI) | payer MEDICARE, SELFPAY ==
[2024-08-21 12:41] LABS: Hematocrit 44.8 % (42.0-52.0); Hemoglobin 13.8 g/dL (14.0-18.0); Mean Corpuscular HGB Conc 30.8 g/dl (32-36); Mean Corpuscular Hemoglobin 28.1 pg (26-34); Mean Corpuscular Volume 91.2 fl (80-100); Mean Platelet Volume 10.6 fl (7.4-10.4); Platelet Count Result 192 k/mm3 (150-375); Red Blood Count 4.91 M/mm3 (4.6-6.20); Red Cell Distribution Width 13.6 % (11.5-14.5); White Blood Count 4.2 K/mm3 (4.5-10.0)
[2024-08-21 13:16] LABS: Albumin Level 4.4 g/dL (3.5-5.1); Anion Gap 5 mmol/L (4-12); Blood Urea Nitrogen 19 mg/dL (9-20); Calcium 9.4 mg/dL (8.4-10.2); Carbon Dioxide 28 mmol/L (22-30); Chloride 106 mmol/L (98-107); Estimated Glomerular Filt Rate 52; Glucose 95 mg/dL (65-110); Phosphorus 3.4 mg/dL (2.5-4.5); Potassium 4.6 mmol/L (3.4-5.0); Sodium 139 mmol/L (137-145); Uric Acid 8.8 mg/dL (3.5-8.5)
[2024-08-21 13:23] LABS: Vitamin D 25 Hydroxy 43.5 ng/mL
[2024-08-21 13:24] LABS: Creatinine Urine 151.6 mg/dL; Total Protein Urine Random 13 mg/dL; Ur Ttl Prot Creatinine Ratio 0.09 mg/mg (0-0.20)
[2024-08-21 13:33] LABS: Parathyroid Intact 82.4 pg/mL (14.5-75.2)
== END 2024-08-21 08:32 | disposition home or self-care (01) ==
LOC: ANHGOSHLAB 08:33
PROVIDERS: PCP Family Medicine; Visit Provider Internal Medicine Nephrology
DX: E21.1 Secondary hyperparathyroidism, not elsewhere classified (principal); N18.31 Chronic kidney disease, stage 3a; M10.9 Gout, unspecified
CPT/HCPCS: 36415; 80069; 82306; 82570; 83970; 84156; 84550; 85027

== ENCOUNTER 2024-09-23 08:12 | Outpatient (CLI) | payer MEDICARE, SELFPAY ==
--- NOTE | ~2024-09-23 | US_ITS ---
EXAMINATION: US aorta [facility] DATE: 09/23/2024 08:56 INDICATION: Encounter for screening for cardiovascular disorder/aortic aneurysm with risk factors of hypertension, smoking and hypercholesterolemia. TECHNIQUE: Grayscale, color Doppler, and pulsed Doppler images of the aorta and common iliac arteries were obtained. COMPARISON: None. FINDINGS: The proximal aorta is obscured by shadowing bowel gas.. The mid aorta measures 1.8 cm. The distal aor ta measures 1.6 cm. The right common iliac artery measures 10 mm. The left common iliac artery measur es 10 mm. IMPRESSION: 1. Visualized abdominal aorta is normal caliber. The cephalad-most abdominal aorta is obscured by sha dowing bowel gas. Reviewed, dictated and finalized at location A. IGURATION MANAGER IMPRESSION: 1. Visualized abdominal aorta is normal caliber. The cephalad-most abdominal ao rta is obscured by shadowing bowel gas.
== END 2024-09-23 08:13 | disposition home or self-care (01) ==
PROVIDERS: PCP Family Medicine; Visit Provider Family Medicine
DX: Z13.6 Encounter for screening for cardiovascular disorders (principal); Z87.891 Personal history of nicotine dependence
CPT/HCPCS: 76706

== ENCOUNTER 2024-11-28 23:00 | Emergency (ER) | payer MEDICARE, SELFPAY ==
[2024-11-28 23:03] VITALS: BP 168/70; PULSE 70; RESP 18; TEMP 36.2; O2SAT 100
[2024-11-29 05:45] VITALS: BP 154/83; PULSE 68; RESP 16; TEMP 36.6; O2SAT 100
--- NOTE | 2024-11-29 05:58 | ED_ITS ---
HPI - General Adult General Chief complaint: Extremity Injury, Lower Stated complaint: left foot pain Time Seen by Provider: 11/29/24 05:57 History of Present Illness HPI narrative: Patient is a 69-year-old male who presents to the emergency department this morning complaining of right foot pain and swelling for the past day. Patient is unsure of any injuries or trauma. Admits to mild swelling mainly noted along the base of his right great toe. Patient does admit to history of gout but states that it has not flared up in many years. Denies any additional symptoms or concerns at this time. Related Data Home Medications ?Medication ?Instructions ?Recorded ?Confirmed ?Last Taken ?Type aspirin 81 mg tablet,delayed 81 mg PO DAILY 12/24/20 09/26/24 09/09/24 History release cholecalciferol (vitamin D3) 125 125 mcg PO DAILY 04/24/24 09/26/24 09/09/24 History mcg (5,000 unit) capsule acetaminophen 500 mg tablet 1,000 mg PO BID PRN deidra 09/02/24 09/26/24 Unknown History atorvastatin 40 mg tablet 40 mg PO QHS 09/02/24 09/26/24 09/09/24 History Allergies Allergy/AdvReac Type Severity Reaction Status Date / Time No Known Allergies Allergy Verified 11/28/24 23:01 Review of Systems Review of Systems: All systems are reviewed and are negative unless stated otherwise in the HPI. [facility] Past Medical History Medical History Chronic kidney disease, stage 3a Hiatal hernia GERD without esophagitis Depression Hidradenitis suppurativa Prediabetes Vitamin D deficiency Cognitive impairment Inguinal hernia without obstruction or gangrene Gout Rotator cuff tendonitis Arthritis Memory loss Erectile dysfunction Chronic right shoulder pain Headache, migraine Dyslipidemia Essential hypertension History of CVA with residual deficit Imaging in 2018 demonstrated evidence of old stroke and patient had acute left posterior frontal mora radiata infarct 10/2017 Surgical History Surgical History Hx of left inguinal hernia repair Laparoscopic left inguinal repair with mesh Mayelin miliant. 06-16-21 History of shoulder surgery (~2015) left shoulder History of tooth extraction Family History Family History Sibling Seizure disorder Father , age 80 Cerebrovascular accident Grandparent Pulmonary disorder Grandparent History of blood clot in brain Grandparent , age 91 Cerebrovascular accident Social History Social History Social History: Patient lives with his of 22 years. He has 3 biologic children. He started smoking at the age of 21. He smoked between 0.5-1 pack of cigarettes per day on and off since then. He had quit smoking all together for over a year but started smoking a couple of cigarettes a day recently. He drinks 2 shots of hard liquor a day on average. He denies illicit substance use. Code status: Full code Surrogate decision maker: Smoking packs per day: 1 Smoking cigarettes per day: 20.0 Years smoked: 3 Smoking pack-years: 3.00 Smoking status: Current every day smoker Tobacco type: cigarettes Second hand tobacco smoke exposure: No Smoking end date: 08/14/23 Additional smoking assessment comments: patient currently smokes 1-2 cigarettes a day Alcohol intake: current Drinks per week: 2 Alcohol use details: Socially Substance use: never Substance use type: does not use Do You Feel Safe in your Home?: Yes Lack of Transportation: No Lack of Food: Never True Current Housing: Decline to Answer Concerned About Future Housing: Decline to Answer Difficulty Paying Gas/Electric Bills: Decline to Answer Difficulty Paying for Meds: Decline to Answer Currently Unemployed: Decline to Answer Education: Decline to Answer Difficulty w/ Childcare or Family Care: Decline to Answer Living arrangements: with family Additional living arrangements comments: (juliet) Occupation/Education: retired Gender identity (if verbalized by the patient): Male Sexual Orientation (if Verbalized by the Patient): Straight or Heterosexual Spiritual care concerns: No Agree to blood products: Yes Exam Narrative: General: Alert, awake, afebrile, in no acute distress. HEENT: PERRL, no rhinorrhea, no post nasal drip, oropharynx clear. Neck: Trachea midline, no JVD, no lymphadenopathy. Cardiovascular: Regular rate and rhythm, no murmurs, rubs or gallops, no adelina pheral edema. Respiratory: Clear to auscultation bilaterally, no tachypnea, no wheezing, no rhonchi, no rubs, no respiratory distress. Abdomen: Soft, nontender, nondistended, no rebound, no guarding, no peritoneal signs. Musculoskeletal: Swelling and tenderness palpation noted at the base of the 1st right metatarsal, no deformity noted, intact PT and DP pulses. Skin: No rashes or petechia, no signs of infection. Psychiatric: Alert and oriented, normal behavior and judgment for situation. Neurological: Alert and oriented to person, place, and time. Follows all commands. No focal deficits, speech is clear and fluent. Course Vital Signs Vital signs: Vital Signs Temperature 97.1 F L 11/28/24 23:03 Pulse Rate 70 11/28/24 23:03 Respiratory Rate 18 11/28/24 23:03 Blood Pressure 168/70 H 11/28/24 23:03 Pulse Oximetry 100 11/28/24 23:03 Oxygen Delivery Room Air 11/28/24 23:03 Temperature 98 F 11/29/24 05:45 Pulse Rate 68 11/29/24 05:45 Respiratory Rate 16 11/29/24 05:45 Blood Pressure 154/83 H 11/29/24 05:45 Pulse Oximetry 100 11/29/24 05:45 Oxygen Delivery Room Air 11/28/24 23:03 Medical Decision Making MDM Narrative Medical decision making narrative: The patient was evaluated by myself in the emergency department. History is obtained from patient who is an independent historian and physical exam was performed. External medical records were reviewed at this time. Patient was administered an oral [place] 5-325 mg for foot pain. Imaging studies obtained included right foot x-ray which was independently interpreted by me revealing no acute process, which is pending final radiology interpretation. Patient was informed that his right foot/great toe swelling pain is likely secondary to his gout. Patient was administered 800 mg of oral ibuprofen at this time. No cholcine was administered given patient's history of chronic kidney disease. Differential diagnosis considerations include gout, fractures, dislocation. Comorbidities impacting this visit include history of gout. I have evaluated and discussed social determinants of health with the patient that could potentially impact subsequent diagnosis and treatment plans. On repeat assessment of the patient, reevaluation revealed that the patient is doing well and is in no acute distress. Patient symptoms have improved since he arrived to our emergency department. Repeat vital signs were all reviewed and noted to be stable. Differential diagnosis and treatment plan were discussed with the patient at bedside. Patient agrees with discussion and after shared medical decision making agrees with discharge. All questions were answered to the patient's satisfaction. Patient will follow up with his PCP in 3-5 days. Script for Medrol Dosepak was sent to patient's pharmacy and he was instructed to take as prescribed. Patient was provided with strict return precautions and instructed to return to the emergency department if any new or worsening symptoms develop. The patient was discharged in stable condition. Vital Signs Vital Signs: Vital Signs Temperature 97.1 F L 11/28/24 23:03 Pulse Rate 70 11/28/24 23:03 Respiratory Rate 18 11/28/24 23:03 Blood Pressure 168/70 H 11/28/24 23:03 Pulse Oximetry 100 11/28/24 23:03 Oxygen Delivery Room Air 11/28/24 23:03 Temperature 98 F 11/29/24 05:45 Pulse Rate 68 11/29/24 05:45 Respiratory Rate 16 11/29/24 05:45 Blood Pressure 154/83 H 11/29/24 05:45 Pulse Oximetry 100 11/29/24 05:45 Oxygen Delivery Room Air 11/28/24 23:03 Discharge Plan Discharge Clinical Impression: Acute pain of right foot, Gout attack Patient Disposition: Home Condition: Improved Instructions: Antibiotic Form, Gout (ED) Additional Instructions: Please follow-up with your family doctor within the next 3-5 days. Return to emergency department if any new or worsening symptoms develop. Take the prescribed steroid Dosepak as instructed for your gout. Patient Language: Italian Prescriptions: New methylprednisolone [Medrol ([place])] 4 mg tablets,dose pack See Rx Instructions .ROUTE .COMPLEX Qty: 21 0RF Rx Instructions: for 6 days No Action lisinopril 40 mg tablet 40 mg PO DAILY Qty: 90 3RF escitalopram oxalate [Lexapro] 10 mg tablet 10 mg PO DAILY Qty: 30 0RF donepezil [Aricept] 5 mg tablet 5 mg PO QHS Qty: 30 6RF acetaminophen 500 mg tablet 1,000 mg PO BID PRN (Reason: deidra) atorvastatin 40 mg tablet 40 mg PO QHS ketoconazole 2 % shampoo 1 applic topical 3XW Qty: 120 1RF clobetasol 0.05 % solution 1 applic topical QHS Qty: 50 1RF amlodipine [Norvasc] 10 mg tablet 10 mg PO DAILY Qty: 90 3RF aspirin 81 mg tablet,delayed release (DR/EC) 81 mg PO DAILY cholecalciferol (vitamin D3) 125 mcg (5,000 unit) capsule 125 mcg PO DAILY omeprazole 20 mg capsule,delayed release(DR/EC) 20 mg PO DAILY Qty: 30 1RF tadalafil [Cialis] 20 mg tablet 20 mg PO DAILY PRN (Reason: sexual activity) Qty: 30 5RF Rx Instructions: administer approximately 30min before sexual activity; do not use more than 1 dose per 24hrs Follow-up/Referrals: Christine Anguiano MD [Primary Care Provider] - 3 Days Time of Disposition: 06:04
[2024-11-29] MEDS: IBUPROFEN 400 MG TABLET 800 MG PO (06:12)
--- NOTE | 2024-11-29 06:17 | PC.NURSE ---
Pt ambulatory to bathroom.
[2024-11-29 06:37] VITALS: BP 160/88; PULSE 72; RESP 18; O2SAT 100
== END 2024-11-29 06:48 | disposition home or self-care (01) ==
PROVIDERS: Emergency Provider Emergency Medicine; PCP Family Medicine
DX: M10.9 Gout, unspecified (principal); Z79.82 Long term (current) use of aspirin; N18.31 Chronic kidney disease, stage 3a; K21.9 Gastro-esophageal reflux disease without esophagitis; E55.9 Vitamin D deficiency, unspecified; E78.49 Other hyperlipidemia; I12.9 Hypertensive chronic kidney disease with stage 1 through stage 4 chronic kidney disease, or unspecified chronic kidney disease; I69.30 Unspecified sequelae of cerebral infarction; Z87.891 Personal history of nicotine dependence
CPT/HCPCS: 73630; 99283; A9270

== ENCOUNTER 2025-02-26 08:29 | Outpatient (CLI) | payer MEDICARE, SELFPAY ==
[2025-02-26 18:39] LABS: Total Protein Urine Random 15 mg/dL; Ur Ttl Prot Creatinine Ratio 0.15 mg/mg (0-0.20)
[2025-02-26 18:39] LABS: Hematocrit 47.4 % (42.0-52.0); Hemoglobin 14.5 g/dL (14.0-18.0); Immature Granulocyte Percent A 0.2 % (0-0.5); Lymphocytes Absolute Auto 1.58 K/mm3 (0.9-3.2); Mean Corpuscular HGB Conc 30.6 g/dl (32-36); Mean Corpuscular Hemoglobin 27.8 pg (26-34); Mean Corpuscular Volume 90.8 fl (80-100); Nucleated Red Blood Cells Absolute Auto 0.000 K/mm3 (0.0-0.012); Nucleated Red Blood Cells Perc 0.0 % (0.0-0.2); Platelet Count Result 233 k/mm3 (150-375); Red Blood Count 5.22 M/mm3 (4.6-6.20); White Blood Count 4.8 K/mm3 (4.5-10.0)
[2025-02-26 18:47] LABS: Alanine Aminotransferase 17 U/L (6-50); Albumin Level 4.2 g/dL (3.5-5.1); Alkaline Phosphatase 82 U/L (38-126); Anion Gap 6 mmol/L (4-12); Aspartate Amino Transferase 71 U/L (17-59); Bilirubin,Total 0.6 mg/dL (0.2-1.3); Blood Urea Nitrogen 17 mg/dL (9-20); Calcium 9.4 mg/dL (8.4-10.2); Carbon Dioxide 27 mmol/L (22-30); Chloride 107 mmol/L (98-107); Cholesterol 166 mg/dL (0-200); Estimated Glomerular Filt Rate 46; Glucose 84 mg/dL (65-110); HDL Direct 51 mg/dL; Potassium 4.4 mmol/L (3.4-5.0); Sodium 140 mmol/L (137-145); Total Protein 7.8 g/dL (6.3-8.2); Triglycerides 93 mg/dL (<150)
[2025-02-26 18:56] LABS: Parathyroid Intact 105.3 pg/mL (14.5-75.2)
[2025-02-26 19:09] LABS: Thyroid Stimulating Hormone Reflex 1.300 uIU/mL (0.465-4.68)
[2025-02-26 19:25] LABS: Prostate Specific Antigen 3.0 ng/mL (< OR = 4.0)
[2025-02-26 20:10] LABS: Hemoglobin A1C 5.5 % (<5.7)
== END 2025-02-26 08:30 | disposition home or self-care (01) ==
LOC: ANHGOSHLAB 08:31
PROVIDERS: Internal Medicine Nephrology; PCP Family Medicine; Visit Provider Family Medicine
DX: Z12.5 Encounter for screening for malignant neoplasm of prostate (principal); E13.22 Other specified diabetes mellitus with diabetic chronic kidney disease; I12.9 Hypertensive chronic kidney disease with stage 1 through stage 4 chronic kidney disease, or unspecified chronic kidney disease; N18.30 Chronic kidney disease, stage 3 unspecified; E78.5 Hyperlipidemia, unspecified; E21.1 Secondary hyperparathyroidism, not elsewhere classified
CPT/HCPCS: 36415; 80053; 80061; 82306; 82570; 83036; 83970; 84100; 84153; 84156; 84443; 85025; G0103

== ENCOUNTER 2025-03-12 08:26 | Emergency (ER) | payer MEDICARE, SELFPAY ==
[2025-03-12 08:30] VITALS: BP 145/78; PULSE 68; RESP 16; TEMP 36.6; O2SAT 100
[2025-03-12] MEDS: HYDROcodone/acetaminophen (*CRX) 5-325 MG TABLET 1 TAB PO (09:21)
[2025-03-12] MEDS: SODIUM CHLORIDE 0.9% IV 1,000 ML 999 ML IV CONT (09:21)
--- NOTE | 2025-03-12 11:30 | ED.EXTPRO ---
HPI - Extremity Problem General Chief complaint: Extremity Problem,Nontraumatic Stated complaint: right foot pain/GOUT Time Seen by Provider: 03/12/25 08:28 History of Present Illness HPI Narrative: Patient is a 69-year-old male with history of gout who presents the ER with pain in his right foot. Ongoing for couple days. Start in the 5th MTP but now in the 1st MTP. Has pain with walking. No improvement with Tylenol at home. Has chronic kidney disease. Has not had colchicine before. Related Data Home Medications ?Medication ?Instructions ?Recorded ?Confirmed ?Last Taken ?Type aspirin 81 mg tablet,delayed 81 mg PO DAILY 12/24/20 03/03/25 09/09/24 History release acetaminophen 500 mg tablet 1,000 mg PO BID PRN deidra 09/02/24 03/03/25 Unknown History lisinopril 40 mg tablet 40 mg PO DAILY 03/03/25 03/03/25 Unknown History Allergies Allergy/AdvReac Type Severity Reaction Status Date / Time No Known Allergies Allergy Verified 03/12/25 08:46 Review of Systems Review of Systems: All systems reviewed & are unremarkable except as noted in HPI and below Constitutional: Constitutional: Reports no additional constitutional complaints Musculoskeletal: Musculoskeletal: Reports no additional musculoskeletal complaints Integumentary/Breasts: Skin/Breast: Reports system reviewed and no additional complaints, except as docu PMFSH Past Medical History Medical History Chronic kidney disease, stage 3a Hiatal hernia GERD without esophagitis Depression Hidradenitis suppurativa Prediabetes Vitamin D deficiency Cognitive impairment Inguinal hernia without obstruction or gangrene Gout Rotator cuff tendonitis Arthritis Memory loss Erectile dysfunction Chronic right shoulder pain Headache, migraine Dyslipidemia Essential hypertension History of CVA with residual deficit Imaging in 2018 demonstrated evidence of old stroke and patient had acute left posterior frontal mora radiata infarct 10/2017 Surgical History Surgical History Hx of left inguinal hernia repair Laparoscopic left inguinal repair with mesh Mayelin solomon. 06-16-21 History of shoulder surgery (~2015) left shoulder History of tooth extraction Family History Family History Sibling Seizure disorder Father , age 80 Cerebrovascular accident Grandparent Pulmonary disorder Grandparent History of blood clot in brain Grandparent , age 91 Cerebrovascular accident Social History Social History Social History: Patient lives with his of 22 years. He has 3 biologic children. He started smoking at the age of 21. He smoked between 0.5-1 pack of cigarettes per day on and off since then. He had quit smoking all together for over a year but started smoking a couple of cigarettes a day recently. He drinks 2 shots of hard liquor a day on average. He denies illicit substance use. Code status: Full code Surrogate decision maker: Smoking packs per day: 1 Smoking cigarettes per day: 20.0 Years smoked: 15 Smoking pack-years: 15.00 Smoking status: Current every day smoker Tobacco type: cigarettes Second hand tobacco smoke exposure: No Smoking end date: 08/14/23 Additional smoking assessment comments: patient currently smokes 1-2 cigarettes a day Alcohol intake: current Drinks per week: 2 Alcohol use details: Socially Substance use: never Substance use type: does not use Do You Feel Safe in your Home?: Yes Lack of Transportation: No Lack of Food: Never True Current Housing: Decline to Answer Concerned About Future Housing: Decline to Answer Difficulty Paying Gas/Electric Bills: Decline to Answer Difficulty Paying for Meds: Decline to Answer Currently Unemployed: Decline to Answer Education: Decline to Answer Difficulty w/ Childcare or Family Care: Decline to Answer Living arrangements: with family Additional living arrangements comments: (juliet) Occupation/Education: retired Gender identity (if verbalized by the patient): Male Sexual Orientation (if Verbalized by the Patient): Straight or Heterosexual Spiritual care concerns: No Agree to blood products: Yes Exam Narrative: GENERAL: Well-appearing, well-nourished, and in no acute distress. HEAD: Normocephalic, atraumatic. ENT: Mucous membranes moist. CHEST: Clear to auscultation. No respiratory distress. HEART: Regular rate and rhythm. Normal peripheral pulses. EXTREMITIES: Normal range of motion. No edema. No redness at the right 1st MTP but there is tenderness same with the 5th MTP. SKIN: Warm, dry, no rash. NEURO: Alert and oriented x3. PSYCH: Normal mood and affect. Course Course Emergency Course: Pain improved with low-dose prednisone and [place]. Discharge home with the same prescription. Vital Signs Vital signs: Vital Signs Temperature 97.9 F 03/12/25 08:30 Pulse Rate 68 03/12/25 08:30 Respiratory Rate 16 03/12/25 08:30 Blood Pressure 145/78 H 03/12/25 08:30 Pulse Oximetry 100 03/12/25 08:30 Oxygen Delivery Room Air 03/12/25 08:30 Temperature 97.9 F 03/12/25 08:30 Pulse Rate 68 03/12/25 08:30 Respiratory Rate 16 03/12/25 08:30 Blood Pressure 145/78 H 03/12/25 08:30 Pulse Oximetry 100 03/12/25 08:30 Oxygen Delivery Room Air 03/12/25 08:30 Discharge Plan Discharge Clinical Impression: Gout flare Patient Disposition: Home Condition: Stable Instructions: Gout (ED) Additional Instructions: Return the ER if you have chest pain shortness of breath, you have fever 100.4? F, or you have additional concerns. Patient Language: [place] Citizen Prescriptions: New prednisone 20 mg tablet 20 mg PO DAILY Qty: 6 0RF hydrocodone-acetaminophen 5-325 mg tablet 1 tablet PO Q6H PRN (Reason: pain) Qty: 14 0RF No Action escitalopram oxalate [Lexapro] 10 mg tablet 10 mg PO DAILY Qty: 30 0RF donepezil [Aricept] 5 mg tablet 5 mg PO QHS Qty: 30 6RF acetaminophen 500 mg tablet 1,000 mg PO BID PRN (Reason: deidra) ketoconazole 2 % shampoo 1 applic topical 3XW Qty: 120 1RF clobetasol 0.05 % solution 1 applic topical QHS Qty: 50 1RF amlodipine [Norvasc] 10 mg tablet 10 mg PO DAILY Qty: 90 3RF lisinopril 40 mg tablet 40 mg PO DAILY aspirin 81 mg tablet,delayed release (DR/EC) 81 mg PO DAILY tadalafil [Cialis] 20 mg tablet 20 mg PO DAILY PRN (Reason: sexual activity) Qty: 30 5RF Rx Instructions: administer approximately 30min before sexual activity; do not use more than 1 dose per 24hrs omeprazole 20 mg capsule,delayed release(DR/EC) 20 mg PO DAILY Qty: 30 5RF atorvastatin 40 mg tablet 40 mg PO QHS Qty: 90 1RF ergocalciferol (vitamin D2) 1,250 mcg (50,000 unit) capsule 1,250 mcg PO WEEKLY Qty: 14 1RF Follow-up/Referrals: Christine Anguiano MD [Primary Care Provider] - 1 Week
[2025-03-12 12:00] VITALS: BP 140/72; PULSE 66; RESP 16; O2SAT 100
== END 2025-03-12 12:00 | disposition home or self-care (01) ==
PROVIDERS: Emergency Provider Emergency Medicine; PCP Family Medicine
DX: M10.9 Gout, unspecified (principal); I12.9 Hypertensive chronic kidney disease with stage 1 through stage 4 chronic kidney disease, or unspecified chronic kidney disease; N18.31 Chronic kidney disease, stage 3a; E78.5 Hyperlipidemia, unspecified; E55.9 Vitamin D deficiency, unspecified; K21.9 Gastro-esophageal reflux disease without esophagitis; F32.A Depression, unspecified; F17.210 Nicotine dependence, cigarettes, uncomplicated; Z79.899 Other long term (current) drug therapy
CPT/HCPCS: 36415; 96360; 99283; A9270; J7030; J7512

== ENCOUNTER 2025-03-18 00:37 | Day surgery (SDC) | payer MEDICARE, SELFPAY ==
[2024-11-29 09:43] VITALS: BMI 31.8
--- NOTE | 2025-02-28 09:51 | PC.NURSE ---
02/26/25 late entry- Pt had come to hospital inquiring about prep. instructions, his information was taken and given to me. I attempted to call him at 1600 but his voicemail was full therefore I could not leave a message. 02/27/25 Ayaz aJegerEduardo attempted to call pt and spouse answered stating he was admitted to [facility]. the afternoon of the . She did not really know the reason he was in the hospital but would ask him to call us. She did give us her email to send his instructions to. 02/28/25 attempted to call pts. number and voicemail full. Dr. Anguiano's office has not received any info on why he is adm to [facility].
[2025-03-03 10:54] VITALS: BMI 31.4
[2025-03-18 08:50] VITALS: BP 152/78; PULSE 71; RESP 18; TEMP 36.1; O2SAT 100; BMI 31.2
--- NOTE | 2025-03-18 08:51 | SUR.PREOP ---
Patient reports eating a cheeseburger with tomato and onions yesterday morning around 0900. Dr. Walker notified and aware.
[2025-03-18] MEDS: LACTATED RINGERS 1,000 ML 150 ML IV CONT (09:01)
--- NOTE | 2025-03-18 09:06 | P.PNAN_ITS ---
Anes - Initial Pre Proc Eval Procedure: Operation Date: 03/18/25 10:00 Proposed Procedures p Screening Colonoscopy - Marcelino Fairbanks MD Date/Time: 03/18/25 09:06 Surgeon: Marcelino Fairbanks MD Pre Op Diagnosis: personal hx colon polyps Patient Data Age: 69 Gender: M Height: 1.6 m Weight: 80.1 kg Last Vital Signs Temp 36.1 C L 03/18/25 08:50 Pulse 71 03/18/25 08:50 Resp 18 03/18/25 08:50 BP 152/78 H 03/18/25 08:50 Pulse Ox 100 03/18/25 08:50 O2 Del Method Room Air 03/18/25 08:50 Allergies Allergy/AdvReac Type Severity Reaction Status Date / Time No Known Allergies Allergy Verified 03/18/25 08:37 Home Medications ?Medication ?Instructions ?Recorded ?Confirmed ?Type aspirin 81 mg tablet,delayed 81 mg PO DAILY 12/24/20 03/18/25 History release donepezil 5 mg tablet (Aricept) 5 mg PO QHS #30 tabs 02/28/24 03/18/25 Rx escitalopram oxalate 10 mg tablet 10 mg PO DAILY #30 tabs 02/28/24 03/18/25 Rx (Lexapro) acetaminophen 500 mg tablet 1,000 mg PO BID PRN deidra 09/02/24 03/17/25 History clobetasol 0.05 % scalp solution 1 applic topical QHS #50 mL 09/02/24 03/18/25 Rx ketoconazole 2 % shampoo 1 applic topical 3XW #120 mL 09/02/24 03/18/25 Rx tadalafil 20 mg tablet (Cialis) 20 mg PO DAILY PRN sexual activity 10/29/24 03/17/25 Rx #30 tabs omeprazole 20 mg capsule,delayed 20 mg PO DAILY #30 caps 01/22/25 03/18/25 Rx release atorvastatin 40 mg tablet 40 mg PO QHS #90 tabs 02/25/25 03/18/25 Rx ergocalciferol (vitamin D2) 1,250 1,250 mcg PO WEEKLY #14 caps 02/27/25 03/18/25 Rx mcg (50,000 unit) capsule lisinopril 40 mg tablet 40 mg PO DAILY 03/03/25 03/18/25 History hydrocodone 5 mg-acetaminophen 325 1 tablet PO Q6H PRN pain #14 tabs 03/12/25 03/18/25 Rx mg tablet prednisone 20 mg tablet 20 mg PO DAILY #6 tabs 03/12/25 03/18/25 Rx nifedipine 60 mg tablet,extended 60 mg PO DAILY #90 tabs 03/17/25 03/18/25 Rx release amlodipine 10 mg tablet 10 mg PO DAILY 03/18/25 03/18/25 History Patient hx anesthesia problems: none Family hx anesthesia problems: none Results Review: All pre-operative results and documents have been reviewed as part of the pre- operative evaluation. [facility] Past Medical History Medical History Chronic kidney disease, stage 3a Hiatal hernia GERD without esophagitis Depression Hidradenitis suppurativa Prediabetes Vitamin D deficiency Cognitive impairment Inguinal hernia without obstruction or gangrene Gout Rotator cuff tendonitis Arthritis Memory loss Erectile dysfunction Chronic right shoulder pain Headache, migraine Dyslipidemia Essential hypertension History of CVA with residual deficit Imaging in 2018 demonstrated evidence of old stroke and patient had acute left posterior frontal mora radiata infarct 10/2017 Surgical History Surgical History Hx of left inguinal hernia repair Laparoscopic left inguinal repair with mesh Mayelin solomon. 06-16-21 History of shoulder surgery (~2015) left shoulder History of tooth extraction Family History Family History Sibling Seizure disorder Father , age 80 Cerebrovascular accident Grandparent Pulmonary disorder Grandparent History of blood clot in brain Grandparent , age 91 Cerebrovascular accident Social History Social History Social History: Patient lives with his of 22 years. He has 3 biologic children. He started smoking at the age of 21. He smoked between 0.5-1 pack of cigarettes per day on and off since then. He had quit smoking all together for over a year but started smoking a couple of cigarettes a day recently. He drinks 2 shots of hard liquor a day on average. He denies illicit substance use. Code status: Full code Surrogate decision maker: Smoking packs per day: 1 Smoking cigarettes per day: 20.0 Years smoked: 15 Smoking pack-years: 15.00 Smoking status: Current every day smoker Tobacco type: cigarettes Second hand tobacco smoke exposure: No Smoking end date: 08/14/23 Additional smoking assessment comments: patient currently smokes 1-2 cigarettes a day Alcohol intake: current Drinks per week: 2 Alcohol use details: Socially Substance use: never Substance use type: does not use Do You Feel Safe in your Home?: Yes Lack of Transportation: No Lack of Food: Never True Current Housing: Decline to Answer Concerned About Future Housing: Decline to Answer Difficulty Paying Gas/Electric Bills: Decline to Answer Difficulty Paying for Meds: Decline to Answer Currently Unemployed: Decline to Answer Education: Decline to Answer Difficulty w/ Childcare or Family Care: Decline to Answer Living arrangements: with family Additional living arrangements comments: (juliet) Occupation/Education: retired Gender identity (if verbalized by the patient): Male Sexual Orientation (if Verbalized by the Patient): Straight or Heterosexual Spiritual care concerns: No Agree to blood products: Yes Anes - Eval Final PreProcedure Day of Procedure 03/18/25 09:06 Patient weight: obese Heart: regular rate and rhythm Lungs: decreased breath sounds Airway: Mallampati scale class III Neurological: alert and oriented Last oral intake: >/= 8 hours ASA classification: III Emergent: no Anesthetic plan: proceed Anesthesia type and monitoring: general GIVS and standard monitoring Results Review: All pre-operative results and documents have been reviewed as part of the pre- operative evaluation. Informed Consent: The patient's anesthetic plan and its attendant risks and benefits were discussed with the patient/family/POA. Questions were solicited and answers provided to the satisfaction of the patient/family/POA.
--- NOTE | 2025-03-18 09:48 | PM.HPGS ---
History of Present Illness History of Present Illness Consent: Risks, benefits, and alternatives have been discussed and questions answered. Patient agrees to proceed with procedure. Chief complaint: personal hx colon polyps Narrative: Buzz Disla is a 69 year old male with colon polyp in 2020 Review of Systems Review of Systems: All systems reviewed & are unremarkable except as noted in HPI and below PMFSH Past Medical History Medical History (Updated 03/18/25 @ 09:48 by Marcelino Fairbanks MD) Colon polyp Chronic kidney disease, stage 3a Hiatal hernia GERD without esophagitis Depression Hidradenitis suppurativa Prediabetes Vitamin D deficiency Cognitive impairment Inguinal hernia without obstruction or gangrene Gout Rotator cuff tendonitis Arthritis Memory loss Erectile dysfunction Chronic right shoulder pain Headache, migraine Dyslipidemia Essential hypertension History of CVA with residual deficit Imaging in 2017 demonstrated evidence of old stroke and patient had acute left posterior frontal mora radiata infarct 10/2017 Surgical History Surgical History Hx of left inguinal hernia repair Laparoscopic left inguinal repair with mesh Mayelin miliant. 06-16-21 History of shoulder surgery (~2015) left shoulder History of tooth extraction Family History Family History Sibling Seizure disorder Father , age 80 Cerebrovascular accident Grandparent Pulmonary disorder Grandparent History of blood clot in brain Grandparent , age 91 Cerebrovascular accident Social History Social History Social History: Patient lives with his of 22 years. He has 3 biologic children. He started smoking at the age of 21. He smoked between 0.5-1 pack of cigarettes per day on and off since then. He had quit smoking all together for over a year but started smoking a couple of cigarettes a day recently. He drinks 2 shots of hard liquor a day on average. He denies illicit substance use. Code status: Full code Surrogate decision maker: Smoking packs per day: 1 Smoking cigarettes per day: 20.0 Years smoked: 15 Smoking pack-years: 15.00 Smoking status: Current every day smoker Tobacco type: cigarettes Second hand tobacco smoke exposure: No Smoking end date: 08/14/23 Additional smoking assessment comments: patient currently smokes 1-2 cigarettes a day Alcohol intake: current Drinks per week: 2 Alcohol use details: Socially Substance use: never Substance use type: does not use Do You Feel Safe in your Home?: Yes Lack of Transportation: No Lack of Food: Never True Current Housing: Decline to Answer Concerned About Future Housing: Decline to Answer Difficulty Paying Gas/Electric Bills: Decline to Answer Difficulty Paying for Meds: Decline to Answer Currently Unemployed: Decline to Answer Education: Decline to Answer Difficulty w/ Childcare or Family Care: Decline to Answer Living arrangements: with family Additional living arrangements comments: (juliet) Occupation/Education: retired Gender identity (if verbalized by the patient): Male Sexual Orientation (if Verbalized by the Patient): Straight or Heterosexual Spiritual care concerns: No Agree to blood products: Yes Meds Home Medications and Allergies Home Medications ?Medication ?Instructions ?Recorded ?Confirmed ?Type aspirin 81 mg tablet,delayed 81 mg PO DAILY 12/24/20 03/18/25 History release donepezil 5 mg tablet (Aricept) 5 mg PO QHS #30 tabs 02/28/24 03/18/25 Rx escitalopram oxalate 10 mg tablet 10 mg PO DAILY #30 tabs 02/28/24 03/18/25 Rx (Lexapro) acetaminophen 500 mg tablet 1,000 mg PO BID PRN deidra 09/02/24 03/17/25 History clobetasol 0.05 % scalp solution 1 applic topical QHS #50 mL 09/02/24 03/18/25 Rx ketoconazole 2 % shampoo 1 applic topical 3XW #120 mL 09/02/24 03/18/25 Rx tadalafil 20 mg tablet (Cialis) 20 mg PO DAILY PRN sexual activity 10/29/24 03/17/25 Rx #30 tabs omeprazole 20 mg capsule,delayed 20 mg PO DAILY #30 caps 01/22/25 03/18/25 Rx release atorvastatin 40 mg tablet 40 mg PO QHS #90 tabs 02/25/25 03/18/25 Rx ergocalciferol (vitamin D2) 1,250 1,250 mcg PO WEEKLY #14 caps 02/27/25 03/18/25 Rx mcg (50,000 unit) capsule lisinopril 40 mg tablet 40 mg PO DAILY 03/03/25 03/18/25 History hydrocodone 5 mg-acetaminophen 325 1 tablet PO Q6H PRN pain #14 tabs 03/12/25 03/18/25 Rx mg tablet prednisone 20 mg tablet 20 mg PO DAILY #6 tabs 03/12/25 03/18/25 Rx nifedipine 60 mg tablet,extended 60 mg PO DAILY #90 tabs 03/17/25 03/18/25 Rx release amlodipine 10 mg tablet 10 mg PO DAILY 03/18/25 03/18/25 History Allergies Allergy/AdvReac Type Severity Reaction Status Date / Time No Known Allergies Allergy Verified 03/18/25 08:37 Vital Signs Vital Signs - 24 hr 03/18/25 08:50 Temperature 97 F L Pulse Rate 71 Respiratory Rate 18 Blood Pressure 152/78 H Pulse Oximetry 100 Oxygen Delivery Room Air Exam Const: General: comfortable and no acute distress HENMT: Face/Nose/Sinus: Normal nares present Eyes: General: appearance normal, both eyes and all related structures Neck: Neck: no JVD Resp: Auscultation: clear to auscultation bilaterally Cardio: Rate: regular rate Rhythm: regular rhythm GI: Inspection: non-distended GI Palp: Yes Soft to palpation Skin: General skin exam: normal color Neuro: Speech: normal speech Extrem: General: normal to inspection Psych: Mental Status: mental status grossly normal Assessment and Plan Assessment and plan (1) Colon polyp: Code(s): K63.5 - Polyp of colon Status: Acute Assessment and Plan: colonoscopy
--- NOTE | 2025-03-18 10:07 | S_PTH ---
PATIENT: Buzz Disla LOC: [facility]#:[id number] AGE/SX: 69/M ROOM: RE03/18/[address]: Marcelino Fairbanks MD : 1955 BED: DIS: 03/18/2025 SPEC #: [id number] RECD: 03/18/25 11:15 STATUS: LORENA RESharon #: [id number] TATI: 03/18/25 10:[address]: Marcelino Fairbanks DEPT: [facility] Surgical RECD BY: Francie Trujillo ENTERED: 03/18/25 11:15 SP TYPE: Surgical OTHR DR: Maddy Anguiano MD Tissues: A - Colon Polypectomy B - Colon Polypectomy Procedures: Hematoxylin and Eosin Stain Gross and Microscopic Level 4
[2025-03-18 10:10] VITALS: BP 99/49; PULSE 64; RESP 16; O2SAT 97
[2025-03-18 10:20] VITALS: BP 103/52; PULSE 65; RESP 16; O2SAT 100
[2025-03-18 10:30] VITALS: BP 117/64; PULSE 60; RESP 20; O2SAT 100
== END 2025-03-18 10:40 | disposition home or self-care (01) ==
PROVIDERS: PCP Family Medicine; Referring Provider Internal Medicine Gastroenterology; Visit Provider Internal Medicine Gastroenterology
PROC: 0DJD8ZZ Inspection of Lower Intestinal Tract, Via Natural or Artificial Opening Endoscopic (ICD-10-PCS; CPT 45378; principal; 2025-03-18 10:00)
DX: Z12.11 Encounter for screening for malignant neoplasm of colon (principal); D12.4 Benign neoplasm of descending colon; D12.5 Benign neoplasm of sigmoid colon; K64.8 Other hemorrhoids; F17.210 Nicotine dependence, cigarettes, uncomplicated; E66.9 Obesity, unspecified; Z68.31 Body mass index [BMI] 31.0-31.9, adult
CPT/HCPCS: 45385; 88305; J2003; J2704; J7120